=== PATIENT | female | born 1950 | race Caucasian/White ===

== ENCOUNTER 2018-01-16 14:05 | Emergency (ER) | payer MEDICARE, OTHER ==
[2018-01-16 14:22] VITALS: BP 143/63
--- NOTE | 2018-01-16 14:52 | EDM.PDOC ---
ED HPI GENERAL MEDICAL PROBLEM - General Chief Complaint: Lower Extremity Injury/Pain Stated Complaint: L HIP PAIN/NUMBNESS - FELL YESTERDAY Time Seen by Provider: 01/16/18 14:31 - History of Present Illness INITIAL COMMENTS - FREE TEXT/NARRATIVE: 67-year-old female presents to the emergency room with head injury and left hip pain. The patient was in pain clinic in [place] yesterday had a back injection which helped quite a bit however when she went to stand up out of the wheelchair to get out the door she had no strength in her legs and fell over landing hard on her hip and hitting her head somewhere on the door she continues to have a headache from this she is not on blood thinners. She's had no loss of consciousness no nausea and vomiting but the headache continues. The patient is ambulatory at home by a large uses her wheelchair because of the discomfort ambulating is very uncomfortable for her. Left Hip Pain Score (Numeric/FACES): 8 - Related Data Allergies Allergy/AdvReac Type Severity Reaction Status Date / Time simvastatin [From Zocor] Allergy Irritabilit Verified 01/16/18 14:18 y Home Meds: Home Meds Allopurinol [Zyloprim] 300 mg PO DAILY 09/25/15 [History] Furosemide [Furosemide] 40 mg PO DAILY 09/25/15 [History] Insulin Aspart [NovoLOG] 0 units SUBCUT TID 09/25/15 [History] Insulin Glarg,Human.Rec.Analog [LantUS Solostar] 0 units SUBCUT BID 09/25/15 [ History] Levothyroxine Sodium [Levothyroxine Sodium] 25 mcg PO DAILY 09/25/15 [History] Lisinopril [Lisinopril] 20 mg PO DAILY 09/25/15 [History] Rosuvastatin [Crestor] 40 mg PO DAILY 09/25/15 [History] metFORMIN [Glucophage] 850 mg PO BIDMEALS 09/25/15 [History] Past Medical History Other HEENT History: wear glasses Other Musculoskeletal History: herniated disc Social & Family History - Family History Family Medical History: Noncontributory - Tobacco Use Smoking Status *Q: Never Smoker Years of Tobacco use: 30 Packs/Tins Daily: 0.5 Second Hand Smoke Exposure: No - Caffeine Use Caffeine Use: Reports: None - Alcohol Use Days Per Week of Alcohol Use: 0 - Recreational Drug Use Recreational Drug Use: No Review of Systems - Review of Systems Review Of Systems: See Below Constitutional: Reports: No Symptoms Eyes: Reports: No Symptoms Ears: Reports: No Symptoms Nose: Reports: No Symptoms Mouth/Throat: Reports: No Symptoms Respiratory: Reports: No Symptoms Cardiovascular: Reports: No Symptoms GI/Abdominal: Reports: No Symptoms Genitourinary: Reports: No Symptoms Musculoskeletal: Reports: Other (Arcuate pain on the left) Skin: Reports: No Symptoms Neurological: Reports: Headache Psychiatric: Reports: No Symptoms ED EXAM, GENERAL - Physical Exam Exam: See Below Exam Limited By: No Limitations General Appearance: Alert, No Apparent Distress Eye Exam: Bilateral Eye: Normal Inspection Ears: Normal External Exam, Normal Canal, Hearing Grossly Normal, Normal TMs Throat/Mouth: Normal Inspection, Normal Lips, Normal Teeth, Normal Gums, Normal Oropharynx, Normal Voice, No Airway Compromise Head: Atraumatic, Normocephalic, Other (He has some significant discomfort at the top of her head and down the left side a cannot palpate well enough to exclude crepitation because of discomfort) Neck: Normal Inspection, Supple, Non-Tender. No: Lymphadenopathy (L), Lymphadenopathy (R) Respiratory/Chest: No Respiratory Distress, Lungs Clear, Normal Breath Sounds Cardiovascular: Regular Rate, Rhythm, No Edema, No Murmur GI/Abdominal: Normal Bowel Sounds, Soft, Non-Tender Back Exam: Normal Inspection. No: CVA Tenderness (L), CVA Tenderness (R) Extremities: Other (Discomfort along the posterior trochanter on the left side gentle range of motion is not tolerated) Neurological: Alert, Oriented, CN II-XII Intact, Normal Cognition Psychiatric: Normal Affect Skin Exam: Warm, Dry, Intact Course - Vital Signs Last Recorded V/S: Last Vital Signs Temp 36.2 C 01/16/18 14:18 Pulse 77 01/16/18 14:18 Resp 20 01/16/18 14:18 BP 143/63 H 01/16/18 14:18 Pulse Ox 94 L 01/16/18 14:18 - Re-Assessments/Exams Free Text/Narrative Re-Assessment/Exam: 01/16/18 17:55 Trade show what could be greater trochanter fracture on the left side. No other acute changes noted however she's got a large accumulation of stool noted in the rectum and in the visualized portion of the bowel patient does have a with constipation she'll take a bottle of mag citrate tonight and repeat it in the morning if needed for her pain control she'll be started on Tylenol 650 every 4- 6 hours as needed for pain. Case was reviewed with Dr. De Guzman today who will see the patient next week. The patient's son will stay with her for the next few days so she can ambulate easier. We attempted to ambulate her and she only a few steps with a walker here she gets around easily with her wheelchair at home. The patient's son is given work excuse until Monday. Departure - Departure Time of Disposition: 17:56 Disposition: Home, Self-Care 01 Clinical Impression: Fracture of greater trochanter of left femur, Constipation - Discharge Information Instructions: Constipation, Adult, Femoral Shaft Fracture Referrals: Bernadette Smith MD [Primary Care Provider] - Gordo De Guzman MD [Physician] - Forms: ED Department Discharge Additional Instructions: Return to the emergency room with any questions problems worsening symptoms. Follow up with Dr. De Guzman today next week. Tylenol 650 mg every 4-6 hours as needed for pain try and limit to no more than 3000 mg a day. Use your walker as tolerated otherwise use your wheelchair.
--- NOTE | 2018-01-16 15:24 | CT ---
Head CT Technique: Multiple axial sections through the brain were obtained. Intravenous contrast was not utilized. Comparison: Prior head CT exam of 07/11/14. Findings: Ventricles along with basal cisterns and sulci over the convexities appear within normal limits for the patient's age. No abnormal parenchymal densities are seen. No evidence of intracranial hemorrhage. No midline shift or mass effect is seen. Bone window settings were reviewed which shows incidental hyperostosis interna frontalis. Stable lucency is identified within the posterior left occipital bone which is felt to be normal variant of prominent arachnoid granulations. No acute calvarial abnormality is seen. Visualized sinuses are clear. Impression: 1. Incidental findings. Nothing acute is seen on noncontrast head CT study. Diagnostic code #2
--- NOTE | 2018-01-16 15:42 | CR ---
Pelvis and left hip: AP view of the pelvis was obtained as well as AP and lateral views of the left hip. Joint spaces within both hips are maintained. Sacroiliac joints are within normal limits. Bony structures are osteopenic. Fracture felt to be present at the base of the greater trochanter within the left hip. No additional fracture or other abnormality is seen. Impression: 1. Probable fracture at the base of the greater trochanter within the left hip. 2. Other incidental findings. Diagnostic code #3
--- NOTE | 2018-01-16 16:42 | CR ---
Left femur: AP and lateral views of the left femur were obtained. Mild joint space narrowing is seen within the medial joint. Osteophytes are noted off both medial and lateral tibial margins of the knee. Bony structures are somewhat osteopenic. Minimal vascular calcification is noted. No acute abnormality is seen on left femur study. Impression: 1. Degenerative change within the left knee. Osteopenia. 2. Nothing acute is seen. Diagnostic code #2
== END 2018-01-16 18:06 | disposition home or self-care (01) ==
LOC: JD.ED 14:05
DX: S72.112A Displaced fracture of greater trochanter of left femur, initial encounter for closed fracture (principal); K59.00 Constipation, unspecified; Z72.0 Tobacco use; Z79.899 Other long term (current) drug therapy; Z88.8 Allergy status to other drugs, medicaments and biological substances; W05.0XXA Fall from non-moving wheelchair, initial encounter
CPT/HCPCS: 70450; 70450-26; 73502-26-LT; 73502-LT; 73552-26-LT; 73552-LT; 99283; 99284-25

== ENCOUNTER 2018-01-22 13:37 | Emergency (ER) | payer MEDICARE, OTHER ==
[2018-01-22] MEDS ORDERED: Sodium Chloride 0.9% 10 ML Syringe FLUSH PRN ×2 (13:51→14:49)
[2018-01-22] MEDS ORDERED: Aspirin 81 MG Tab.Chew PO ONE (13:51)
[2018-01-22] MEDS: Nitroglycerin 0.4 MG Tab.SL SL PRN ×3 (13:55→14:05)
[2018-01-22 14:05] VITALS: BP 104/70
[2018-01-22] MEDS ORDERED: Sodium Chloride 0.9% 500 ML IV ONE (14:38)
--- NOTE | 2018-01-22 14:48 | CR ---
Chest: Portable view of the chest was obtained. Comparison: No prior chest x-ray is available. Heart size is normal. Mild tortuosity of the thoracic aorta is seen. Previous sternotomy is noted as well as AICD. Lungs are clear. Bony structures are grossly intact. Surgical clips are noted from prior cholecystectomy. Impression: 1. Incidental findings. Nothing acute is identified on portable chest x-ray. Diagnostic code #2
[2018-01-22] MEDS ORDERED: Iopamidol 755 Mg/ML 100 ML Bottle IVPUSH ONE (14:49)
[2018-01-22] MEDS ORDERED: Sodium Chloride 0.9% 100 ML IV SCH (15:00)
--- NOTE | 2018-01-22 15:18 | CT ---
CT chest Technique: Multiple axial sections through the chest were obtained. Intravenous contrast was utilized. Study has been performed as a pulmonary angiogram protocol. Comparison: Prior chest x-ray performed earlier on the same day (1:51 PM, no prior chest CT. Findings: Pulmonary arteries are well-opacified. No filling defects are identified to indicate pulmonary embolism. Artifact is noted from AICD. Sternotomy wires are seen. Mediastinum and hilar region show no adenopathy or mass. Mild coronary artery calcification is seen. Small portion of the visualized upper abdominal structures shows previous cholecystectomy. Lungs are clear. No acute pulmonary densities are seen. Bone window settings were reviewed which shows mild degenerative change scattered throughout the spine. Impression: 1. No findings of pulmonary embolism. 2. Other incidental findings as noted above. Nothing acute is appreciated on CT study of the chest. Diagnostic code #2
[2018-01-22] MEDS ORDERED: Ketorolac 30 MG/ML SDV IVPUSH ONE (16:30)
--- NOTE | 2018-01-22 17:20 | EDM.PDOC ---
ED HPI GENERAL MEDICAL PROBLEM - General Chief Complaint: Chest Pain Stated Complaint: CHEST PAIN Time Seen by Provider: 01/22/18 13:43 Source of Information: Reports: Patient History Limitations: Reports: No Limitations - History of Present Illness INITIAL COMMENTS - FREE TEXT/NARRATIVE: The patient presents with left sided chest pain that started a couple hours before presentation. She says it hurts to take a deep breath. She also is short of breath. She has no cough, fever, or chills. She has no abdominal pain , nausea or vomiting. She had a CABG years ago and a few months ago she had a pacemaker put in. She was just resting when this started. It hurts more when she takes a deep breath and it there is pain upon palpation to her chest. Onset: Sudden Duration: Hour(s): (2) Location: Reports: Chest Quality: Reports: Sharp Severity: Moderate Improves with: Reports: Immobilization Worsens with: Reports: Breathing, Movement Context: Reports: Activity (She was sitting around) Associated Symptoms: Reports: Chest Pain, Shortness of Breath Chest Pain Score (Numeric/FACES): 8 - Related Data Allergies Allergy/AdvReac Type Severity Reaction Status Date / Time simvastatin [From Zocor] Allergy Irritabilit Verified 01/22/18 13:41 y Home Meds: Home Meds Allopurinol [Zyloprim] 300 mg PO DAILY 09/25/15 [History] Furosemide [Furosemide] 80 mg PO DAILY 09/25/15 [History] Insulin Aspart [NovoLOG] 0 units SUBCUT TID 09/25/15 [History] Insulin Glarg,Human.Rec.Analog [LantUS Solostar] 0 units SUBCUT BID 09/25/15 [ History] Levothyroxine Sodium [Levothyroxine Sodium] 25 mcg PO SUTUTHSA 09/25/15 [History ] Lisinopril [Lisinopril] 20 mg PO DAILY 09/25/15 [History] Rosuvastatin [Crestor] 40 mg PO DAILY 09/25/15 [History] metFORMIN [Glucophage] 850 mg PO BIDMEALS 09/25/15 [History] Diclofenac Sodium [Voltaren] 1 dose TOP ASDIRECTED 01/22/18 [History] Levothyroxine 50 mg PO MOWEFR 01/22/18 [History] Metoprolol Succinate 200 mg PO DAILY 01/22/18 [History] Potassium Chloride [Klor-Con M20] 20 meq PO DAILY 01/22/18 [History] Past Medical History Other HEENT History: wear glasses Cardiovascular History: Reports: Heart Failure, High Cholesterol, Hypertension, Pacemaker Respiratory History: Reports: Asthma Other Musculoskeletal History: herniated disc Endocrine/Metabolic History: Reports: Diabetes, Type II - Past Surgical History Cardiovascular Surgical History: Reports: Coronary Artery Bypass Social & Family History - Family History Family Medical History: Noncontributory - Tobacco Use Smoking Status *Q: Former Smoker Years of Tobacco use: 30 Packs/Tins Daily: 0.5 Used Tobacco, but Quit: No Second Hand Smoke Exposure: No - Caffeine Use Caffeine Use: Reports: None - Alcohol Use Days Per Week of Alcohol Use: 0 - Recreational Drug Use Recreational Drug Use: No ED ROS GENERAL - Review of Systems Review Of Systems: See Below Constitutional: Reports: No Symptoms HEENT: Reports: No Symptoms Respiratory: Reports: Shortness of Breath Cardiovascular: Reports: Chest Pain Endocrine: Reports: No Symptoms GI/Abdominal: Reports: No Symptoms : Reports: No Symptoms ED EXAM, GENERAL - Physical Exam Exam: See Below Exam Limited By: No Limitations General Appearance: Alert, No Apparent Distress Ears: Normal External Exam Nose: Normal Inspection Head: Atraumatic, Normocephalic Neck: Normal Inspection Respiratory/Chest: No Respiratory Distress, Lungs Clear, Normal Breath Sounds Cardiovascular: Regular Rate, Rhythm, No Edema, No Murmur, Other (Pain upon palpation to the left chest) GI/Abdominal: Soft, Non-Tender, No Organomegaly Back Exam: Normal Inspection Extremities: Normal Inspection EKG INTERPRETATION EKG Date: 01/22/18 Time: 13:43 Rhythm: NSR Rate (Beats/Min): 77 [place]: Normal P-Wave: Present QRS: LBBB Course - Vital Signs Last Recorded V/S: Last Vital Signs Temp 97.0 F 01/22/18 13:42 Pulse 66 01/22/18 13:42 Resp 20 01/22/18 13:42 BP 104/70 01/22/18 14:05 Pulse Ox 97 01/22/18 13:42 - Orders/Labs/Meds Orders: Active Orders 24 hr Category Date Time Status Accu Check [Blood Glucose Check, Bedside] [RC] ONETIME Care 01/22/18 16:17 Inactive Cardiac Monitoring [RC] . DIRECTED Care 01/22/18 13:51 Active EKG Documentation Completion [RC] ASDIRECTED Care 01/22/18 13:39 Active Peripheral IV Care [RC] . DIRECTED Care 01/22/18 13:52 Active Peripheral IV Insertion Adult [OM.PC] Stat Oth 01/22/18 13:51 Ordered EKG 12 Lead [EK] Stat Ther 01/22/18 13:39 Ordered Labs: Laboratory Tests 01/22/18 01/22/18 01/22/18 Range/Units 13:45 13:45 13:45 WBC 16.03 H (3.98-10.04) K/mm3 RBC 5.60 H (3.98-5.22) M/mm3 Hgb 14.9 (11.2-15.7) gm/L Hct 45.0 H (34.1-44.9) % MCV 80.4 (79.4-94.8) fl MCH 26.6 (25.6-32.2) pg MCHC 33.1 (32.2-35.5) g/dl RDW Std Deviation 47.5 H (36.4-46.3) fL Plt Count 359 (182-369) K/mm3 MPV 9.6 (9.4-12.3) fl Neut % (Auto) 75.5 H (34.0-71.1) % Lymph % (Auto) 14.7 L (19.3-51.7) % [place] % (Auto) 9.2 (4.7-12.5) % Eos % (Auto) 0.2 L (0.7-5.8) Baso % (Auto) 0.1 (0.1-1.2) % Neut # (Auto) 12.10 H (1.56-6.13) K/mm3 Lymph # (Auto) 2.36 (1.18-3.74) K/mm3 [place] # (Auto) 1.47 H (0.24-0.36) K/mm3 Eos # (Auto) 0.04 (0.04-0.36) K/mm3 Baso # (Auto) 0.01 (0.01-0.08) K/mm3 D-Dimer, Quantitative 2.13 H (0.19-0.59) mg/L Sodium 134 L (136-145) mEq/L Potassium 4.3 (3.5-5.1) mEq/L Chloride 100 (98-107) mEq/L Carbon Dioxide 21 (21-32) mEq/L Anion Gap 17.3 H (5-15) BUN 36 H (7-18) mg/dL Creatinine 1.4 H (0.55-1.02) mg/dL Est Cr Clr Drug Dosing 27.24 mL/min Estimated GFR (MDRD) 37 (>60) mL/min BUN/Creatinine Ratio 25.7 H (14-18) Glucose 325 H (80-115) mg/dL Calcium 9.4 (8.5-10.1) mg/dL Total Bilirubin 0.5 (0.2-1.0) mg/dL AST 11 L (15-37) U/L ALT 29 (14-59) U/L Alkaline Phosphatase 119 H (46-116) U/L Troponin I < 0.017 (0.00-0.056) ng/mL Total Protein 7.6 (6.4-8.2) g/dl Albumin 3.4 (3.4-5.0) g/dl Globulin 4.2 gm/dL Albumin/Globulin Ratio 0.8 L (1-2) 01/22/18 Range/Units 16:40 WBC (3.98-10.04) K/mm3 RBC (3.98-5.22) M/mm3 Hgb (11.2-15.7) gm/L Hct (34.1-44.9) % MCV (79.4-94.8) fl MCH (25.6-32.2) pg MCHC (32.2-35.5) g/dl RDW Std Deviation (36.4-46.3) fL Plt Count (182-369) K/mm3 MPV (9.4-12.3) fl Neut % (Auto) (34.0-71.1) % Lymph % (Auto) (19.3-51.7) % [place] % (Auto) (4.7-12.5) % Eos % (Auto) (0.7-5.8) Baso % (Auto) (0.1-1.2) % Neut # (Auto) (1.56-6.13) K/mm3 Lymph # (Auto) (1.18-3.74) K/mm3 [place] # (Auto) (0.24-0.36) K/mm3 Eos # (Auto) (0.04-0.36) K/mm3 Baso # (Auto) (0.01-0.08) K/mm3 D-Dimer, Quantitative (0.19-0.59) mg/L Sodium (136-145) mEq/L Potassium (3.5-5.1) mEq/L Chloride (98-107) mEq/L Carbon Dioxide (21-32) mEq/L Anion Gap (5-15) BUN (7-18) mg/dL Creatinine (0.55-1.02) mg/dL Est Cr Clr Drug Dosing mL/min Estimated GFR (MDRD) (>60) mL/min BUN/Creatinine Ratio (14-18) Glucose (80-115) mg/dL Calcium (8.5-10.1) mg/dL Total Bilirubin (0.2-1.0) mg/dL AST (15-37) U/L ALT (14-59) U/L Alkaline Phosphatase (46-116) U/L Troponin I 0.023 (0.00-0.056) ng/mL Total Protein (6.4-8.2) g/dl Albumin (3.4-5.0) g/dl Globulin gm/dL Albumin/Globulin Ratio (1-2) Meds: Medications Discontinued Medications Generic Name Dose Route Start Last Admin Trade Name Freq PRN Reason Stop Dose Admin Aspirin 324 mg 01/22/18 13:51 01/22/18 13:55 Aspirin PO 01/22/18 13:52 324 mg ONETIME ONE Administration Sodium Chloride 500 mls @ 1,000 mls/hr 01/22/18 14:38 01/22/18 15:11 Normal Saline IV 01/22/18 15:07 1,000 mls/hr .BOLUS ONE Administration Sodium Chloride 100 mls @ 75 mls/hr 01/22/18 15:00 01/22/18 15:02 Normal Saline IV 75 mls/hr ASDIRECTED MAEGAN Administration Iopamidol 100 ml 01/22/18 14:49 01/22/18 15:02 Isovue-370 (76%) IVPUSH 01/22/18 14:50 100 ml ONETIME ONE Administration Ketorolac Tromethamine 30 mg 01/22/18 16:30 01/22/18 16:38 Toradol IVPUSH 01/22/18 16:31 30 mg ONETIME ONE Administration Nitroglycerin 0.4 mg 01/22/18 13:51 01/22/18 14:05 Nitrostat SL 01/23/18 13:51 0.4 mg Q5M PRN Administration Chest Pain Sodium Chloride 10 ml 01/22/18 13:51 01/22/18 13:56 Saline Flush FLUSH 10 ml ASDIRECTED PRN Administration Keep Vein Open Sodium Chloride 10 ml 01/22/18 14:49 01/22/18 15:03 Saline Flush FLUSH 10 ml ONETIME PRN Administration IV FLUSH - Re-Assessments/Exams Free Text/Narrative Re-Assessment/Exam: 01/22/18 19:19 I ordered an IV saline lock, CXR, EKG, labs, aspirin and nitro. His EKG shows a LBBB that was old for her. There is no acute changes. Her CXR shows nothing acute. Her WBC was elevated 16.03. D-dimer was elevated at 2.13. I ordered a CT angio of her chest. Her Na was a little low at 134. Her creatinine was elevated at 1.4. Her glucose was elevated at 325. Her troponin is negative. Her CT shows no findings of pulmonary embolism. Other incidental findings as noted above. Nothing acute is appreciated on CT study of the chest. She is feeling better. I ordered a repeat troponin and it was negative. The pain in her chest is reproducable. This appears to be chest wall pain. I offered to admit her because of her history but she declined. I will have her stop her metformin for a couple days and have her follow up with Dr Smith. Departure - Departure Time of Disposition: 17:20 Disposition: Home, Self-Care 01 Condition: Good Clinical Impression: Atypical chest pain Instructions: Nonspecific Chest Pain, [id number] Referrals: Bernadette Smith MD [Primary Care Provider] - 2 Days Forms: ED Department Discharge Additional Instructions: Take your medication as prescribed. Take motrin or aleve for pain. Please return if you are worse. Follow up with Dr Smith within 3 days. - My Orders Last 24 Hours: My Active Orders 01/22/18 13:39 EKG Documentation Completion [RC] ASDIRECTED EKG 12 Lead [EK] Stat 01/22/18 13:51 Cardiac Monitoring [RC] . DIRECTED Peripheral IV Insertion Adult [OM.PC] Stat 01/22/18 13:52 Peripheral IV Care [RC] . DIRECTED 01/22/18 16:17 Accu Check [Blood Glucose Check, Bedside] [RC] ONETIME - Assessment/Plan Last 24 Hours: My Active Orders 01/22/18 13:39 EKG Documentation Completion [RC] ASDIRECTED EKG 12 Lead [EK] Stat 01/22/18 13:51 Cardiac Monitoring [RC] . DIRECTED Peripheral IV Insertion Adult [OM.PC] Stat 01/22/18 13:52 Peripheral IV Care [RC] . DIRECTED 01/22/18 16:17 Accu Check [Blood Glucose Check, Bedside] [RC] ONETIME
== END 2018-01-22 17:25 | disposition home or self-care (01) ==
LOC: JD.ED 13:37
DX: R07.89 Other chest pain (principal); I11.0 Hypertensive heart disease with heart failure; I50.9 Heart failure, unspecified; E78.00 Pure hypercholesterolemia, unspecified; E11.9 Type 2 diabetes mellitus without complications; Z95.0 Presence of cardiac pacemaker; Z95.1 Presence of aortocoronary bypass graft; Z87.891 Personal history of nicotine dependence; Z79.4 Long term (current) use of insulin; Z79.899 Other long term (current) drug therapy; Z88.8 Allergy status to other drugs, medicaments and biological substances
CPT/HCPCS: 36415; 71045; 71275; 80053; 84484; 85025; 85379; 93005; 96374; 99285; A9270; J1885; J7030; J7040; J7050; Q9967; 93010; 99284-25

== ENCOUNTER 2018-04-30 07:08 | Inpatient (IN) | payer MEDICARE, OTHER ==
[~2018-04-30 07:08] MED LIST: Bisacodyl 5 MG Tab PO PRN; Cyclobenzaprine 10 MG Tab PO PRN; Ketorolac 15 MG/ML SDV IVPUSH PRN; Lactated Ringers 1,000 ML IV SCH; Lidocaine 1%/Sod Bicarbonate in NS 8.4% 1 ML Syringe IDERM PRN; Magnesium Hydroxide 400 MG/5 ML Susp 30 ML Cup PO PRN; Morphine 2 MG/ML Syringe IVPUSH PRN; Naloxone 0.4 MG/ML SDV IVPUSH PRN; Sennosides 8.6 MG Tab PO PRN; Sodium Chloride 0.9% 10 ML Syringe FLUSH PRN
[2018-04-30] MEDS ORDERED: Acetaminophen 325 MG Tab PO ONE (07:15)
[2018-04-30] MEDS ORDERED: oxyCODONE ER 10 MG TAB.ER PO ONE (07:15)
[2018-04-30] MEDS ORDERED: Pregabalin 25 MG Cap PO ONE (07:15)
[2018-04-30] MEDS: ceFAZolin 1 GM Vial ONE ×2 (07:46→10:32)
[2018-04-30] MEDS: Bupivacaine 0.25% 30 ML SDV ONE ×2 (07:47→10:37)
[2018-04-30] MEDS: Vancomycin 1 GM SDV ONE ×2 (07:47→10:40)
[2018-04-30] MEDS: Iodine/Sodium Iodide 2% Tincture 30 ML Bottle ONE ×2 (07:48→10:29)
--- NOTE | 2018-04-30 08:02 | PCM.PREANE ---
Preanesthetic Assessment - Procedure Proposed Procedure: Left Total Knee Arthoplasty - Anesthesia/Transfusion/Family Hx Anesthesia History: Prior Anesthesia Without Reaction Family History of Anesthesia Reaction: No Transfusion History: No Prior Transfusion(s) - Review of Systems General: No Symptoms Pulmonary: No Symptoms Cardiovascular: Dyspnea on Exertion (short of breath at 1/2 block ) Gastrointestinal: No Symptoms Neurological: No Symptoms Other: Reports: Diabetes, Depression - Physical Assessment NPO Status Date: 04/29/18 NPO Status Time: 18:30 Pulse: 87 O2 Sat by Pulse Oximetry: 91 Respiratory Rate: 16 Blood Pressure: 115/72 Temperature: 37 C Height: 1.52 m ASA Class: 2 Mental Status: Alert & Oriented x3 Airway Class: Mallampati = 3 Dentition: Reports: Normal Dentition Thyro-Mental Finger Breadths: 3 Mouth Opening Finger Breadths: 5 ROM/Head Extension: Full Lungs: Clear to Auscultation, Normal Respiratory Effort Cardiovascular: Regular Rate, Regular Rhythm - Lab Values: Laboratory Last Values POC Glucose 171 mg/dL (80-115) H 04/30/18 07:51 MRSA (PCR) Negative 04/11/18 10:06 - Allergies Allergies/Adverse Reactions: Allergies Allergy/AdvReac Type Severity Reaction Status Date / Time simvastatin [From Zocor] AdvReac Muscle Verified 04/26/18 14:57 Aches - Blood Blood Available: No - Anesthesia Plan Beta Yomi: Metoprolol Med Last Dose Date: 04/30/18 Med Last Dose Time: 06:30 - Acknowledgements Anesthesia Type Planned: Spinal Pt an Appropriate Candidate for the Planned Anesthesia: Yes Alternatives and Risks of Anesthesia Discussed w Pt/Guardian: Yes Pt/Guardian Understands and Agrees with Anesthesia Plan: Yes PreAnesthesia Questionnaire HEENT History: Reports: None Other HEENT History: wear glasses Cardiovascular History: Reports: CAD, Heart Failure, High Cholesterol, Hypertension, Other (See Below) Other Cardiovascular History: Splenic artery aneurysm Respiratory History: Reports: Asthma Gastrointestinal History: Reports: Colon Polyp Genitourinary History: Reports: Renal Calculus, Other (See Below) Other Genitourinary History: Hypertonicity of bladder FORENSIC NURSE History: Reports: Musculoskeletal History: Reports: Back Pain, Chronic, Gout, Other (See Below) Other Musculoskeletal History: Spinal stenosis of lumbar region, left knee pain Neurological History: Reports: Other (See Below) Other Neuro History: Cerebrovascular disease Psychiatric History: Reports: None Endocrine/Metabolic History: Reports: Diabetes, Type II, Hypothyroidism, Obesity /BMI 30+, Osteopenia Hematologic History: Reports: None Immunologic History: Reports: None Oncologic (Cancer) History: Reports: None Dermatologic History: Reports: None - Past Surgical History Head Surgeries/Procedures: Reports: None Other HEENT Surgeries/Procedures: Arthroplasty for TMJ Cardiovascular Surgical History: Reports: Coronary Artery Bypass, Other (See Below) Other Cardiovascular Surgeries/Procedures: Cardiac cath Respiratory Surgical History: Reports: None GI Surgical History: Reports: Cholecystectomy, Colonoscopy, EGD, Polypectomy Female Surgical History: Reports: Hysterectomy, Lithotripsy/ESWL Endocrine Surgical History: Reports: None Musculoskeletal Surgical History: Reports: Other (See Below) Other Musculoskeletal Surgeries/Procedures:: Osteoplasty radius ulna shortening Oncologic Surgical History: Reports: None Dermatological Surgical History: Reports: None - SUBSTANCE USE Smoking Status *Q: Former Smoker Tobacco Use Within Last Twelve Months: No Second Hand Smoke Exposure: No Days Per Week of Alcohol Use: 0 Recreational Drug Use History: No - HOME MEDS Home Medications: Home Meds Allopurinol [Zyloprim] 300 mg PO DAILY 09/25/15 [History] Furosemide 80 mg PO DAILY 09/25/15 [History] Insulin Aspart [NovoLOG] 0 units SUBCUT TID 09/25/15 [History] Insulin Glarg,Human.Rec.Analog [LantUS Solostar] 0 units SUBCUT BID 09/25/15 [ History] Levothyroxine Sodium 25 mcg PO SUTUTHSA 09/25/15 [History] Lisinopril 20 mg PO DAILY 09/25/15 [History] Rosuvastatin [Crestor] 40 mg PO BEDTIME 09/25/15 [History] Levothyroxine 50 mg PO MOWEFR 01/22/18 [History] Metoprolol Succinate 200 mg PO DAILY 01/22/18 [History] Potassium Chloride [Klor-Con M20] 20 meq PO DAILY 01/22/18 [History] Albuterol Sulfate [Proair Respiclick] 2 puff IH Q4H PRN 04/26/18 [History] Aspirin [Halfprin] 81 mg PO DAILY 04/26/18 [History] Cholecalciferol (Vitamin D3) [Vitamin D3] 5,000 unit PO DAILY 04/26/18 [History] Diclofenac Sodium [Voltaren] 1 applic TP BID 04/26/18 [History] Exenatide Microspheres [Bydureon] 2 mg SQ MO 04/26/18 [History] Famotidine [Pepcid] 10 mg PO DAILY 04/26/18 [History] [place]-3/DHA/Epa/Fish Oil [[place]-3 Fish Oil 1,000 MG Sfgl] 1,000 mg PO DAILY [History] Ubidecarenone [Co Q-10] 100 mg PO DAILY 04/26/18 [History] - CURRENT (IN HOUSE) MEDS Current Meds: Current Medications Bisacodyl (Dulcolax) 5 mg PO DAILY PRN PRN Reason: Constipation Morphine Sulfate 8 mg/Epinephrine HCl 0.3 mg/Cefuroxime Sodium 750 mg/Ketorolac Tromethamine 30 mg/Sodium Chloride 27.9 ml 0 mg .XX ONETIME ONE Stop: 04/30/18 10:01 Cyclobenzaprine HCl (Flexeril) 10 mg PO TID PRN PRN Reason: Spasms Docusate Sodium (Colace) 100 mg PO BID MAEGAN Famotidine (Pepcid) 20 mg PO Q12H MAEGAN Lactated Ringer's (Ringers, Lactated) 1,000 mls @ 125 mls/hr IV ASDIRECTED [facility] Stop: 04/30/18 18:00 Cefazolin Sodium/Dextrose 2 gm (/ Premix) 50 mls @ 100 mls/hr IV Q8H [facility] Stop: 04/30/18 23:29 Ketorolac Tromethamine (Toradol) 15 mg IVPUSH Q6H PRN PRN Reason: Pain Lidocaine/Sodium Bicarbonate (Buffered Lidocaine 1% In Ns 8.4%) 0.25 ml IDERM ONETIME PRN PRN Reason: Prior to IV Start Stop: 04/30/18 18:00 Magnesium Hydroxide (Milk Of Magnesia) 30 ml PO BID PRN PRN Reason: Constipation Morphine Sulfate (Morphine) 2 mg IVPUSH Q2H PRN PRN Reason: Breakthrough Pain Naloxone HCl (Narcan) 0.1 mg IVPUSH Q5M PRN PRN Reason: Oversedation Ondansetron HCl (Zofran) 4 mg IVPUSH Q6H PRN PRN Reason: Nausea/Vomiting Oxycodone/Acetaminophen (Percocet 325-5 Mg) 1 - 2 tab PO Q4H PRN PRN Reason: Pain Rivaroxaban (Xarelto) 10 mg PO DAILY MAEGAN Senna (Senna) 8.6 mg PO BID PRN PRN Reason: Constipation Sodium Chloride (Saline Flush) 10 ml FLUSH ASDIRECTED PRN PRN Reason: Keep Vein Open Stop: 04/30/18 18:00 Discontinued Medications Acetaminophen (Tylenol) 975 mg PO ONETIME ONE Stop: 04/30/18 07:16 Bupivacaine HCl (Marcaine 0.25%) Confirm Administered Dose 30 ml .ROUTE .STK- MED ONE Stop: 04/30/18 07:40 Last Admin: 04/30/18 07:47 Dose: 30 ml Cefazolin Sodium (Ancef) Confirm Administered Dose 2 gm .ROUTE .STK-MED ONE Stop: 04/30/18 07:39 Last Admin: 04/30/18 07:46 Dose: 2 gm Iodine (Iodine 2% Mild Tincture) Confirm Administered Dose 30 ml .ROUTE .STK- MED ONE Stop: 04/30/18 07:40 Last Admin: 04/30/18 07:48 Dose: 30 ml Oxycodone HCl (Oxycontin) 10 mg PO ONETIME ONE Stop: 04/30/18 07:16 Pregabalin (Lyrica) 50 mg PO ONETIME ONE Stop: 04/30/18 07:16 Tranexamic Acid (Cyklokapron) Confirm Administered Dose 1,000 mg .ROUTE .STK- MED ONE Stop: 04/30/18 07:39 Last Admin: 04/30/18 07:48 Dose: 1,000 mg Vancomycin HCl (Vancomycin) Confirm Administered Dose 1 gm .ROUTE .STK-MED ONE Stop: 04/30/18 07:39 Last Admin: 04/30/18 07:47 Dose: 1 gm
[2018-04-30] MEDS ORDERED: Propofol 200 MG/20 ML SDV ONE ×2 (08:24→10:44)
[2018-04-30] MEDS ORDERED: Lidocaine 1% 4 ML ONE (08:26)
[2018-04-30] MEDS ORDERED: ceFAZolin 1 GM Vial ONE (08:31)
[2018-04-30] MEDS: Morphine 8 MG, EPINEPHrine 0.3 MG, Cefuroxime 750 MG, Ketorolac 30 MG, Sodium Chloride ... ONE ×15 (08:36→15:29)
[2018-04-30] MEDS ORDERED: Lidocaine 1% 2 ML ONE (08:55)
[2018-04-30] MEDS ORDERED: Bupivacaine 0.75% 30 ML SDV ONE (08:55)
[2018-04-30] MEDS ORDERED: Non-Formulary Medication 1 Each (Albuterol Sulfate [Proair Respiclick] 2 PUFF) IH PRN (11:14)
[2018-04-30] MEDS ORDERED: EXENATIDE MICROSPHERES 2 MG SQ SCH (11:15)
[2018-04-30] MEDS ORDERED: diphenhydrAMINE 50 MG/ML SDV IVPUSH PRN (11:27)
[2018-04-30] MEDS ORDERED: Ondansetron 4 MG/2 ML SDV IVPUSH PRN (11:27)
[2018-04-30] MEDS ORDERED: fentaNYL 100 MCG/2 ML SDV IVPUSH PRN (11:27)
--- NOTE | 2018-04-30 11:27 | PCM.POSTAN ---
POST ANESTHESIA ASSESSMENT - MENTAL STATUS Mental Status: Alert - VITAL SIGNS Pulse Rate: 88 SaO2: 94 Resp Rate: 20 Blood Pressure: 106/78 Temperature: 36.5 C - RESPIRATORY Respiratory Status: Respiratory Rate WNL, Airway Patent, O2 Saturation Stable - CARDIOVASCULAR CV Status: Pulse Rate WNL, Blood Pressure Stable - GASTROINTESTINAL GI Status: No Symptoms - PAIN Pain Score: 0 - POST OP HYDRATION Hydration Status: Adequate & Stable
[2018-04-30] MEDS ORDERED: Ropivacaine 0.5% 5 MG/ML 30 ML SDV ONE (12:27)
[2018-04-30] MEDS ORDERED: EPINEPHrine 1 MG/ML SDV ONE (12:27)
--- NOTE | 2018-04-30 14:24 | PCM.OPNOTE ---
- General Post-Op/Procedure Note Date of Surgery/Procedure: 04/30/18 Operative Procedure(s): left total knee arthroplasty Pre Op Diagnosis: left knee osteoarthrosis Post-Op Diagnosis: Same Anesthesia Technique: Local, MAC, Spinal Primary Surgeon: Gordo De Guzman Anesthesia Provider: Reny Garcia Manufacturing Engineer Machining: Delma Medel Manufacturing Engineer Machining: Sharonda Robert in mLs: 30 Complications: None Condition: Good Free Text/Narrative:: size 3 and 3 29x9
[2018-04-30] MEDS: Ondansetron 4 MG/2 ML SDV IVPUSH PRN (14:42)
[2018-04-30] MEDS: Insulin Aspart 100 Units/ML 3 ML Pen SUBCUT SCH (14:42)
[2018-04-30] MEDS ORDERED: Scopolamine 1.5 MG Transdermal Patch TRDERM PRN (14:52)
[2018-04-30] MEDS: Acetaminophen/oxyCODONE 325-5 MG Tab PO PRN (15:06)
--- NOTE | 2018-04-30 15:23 | PCM.CONS ---
H&P History of Present Illness - General Date of Service: 04/30/18 Admit Problem/Dx: Admission Diagnosis/Problem Admission Diagnosis/Problem Osteoarthritis of knee Source of Information: Patient, Provider, RN, RN Notes Reviewed History Limitations: Reports: No Limitations - History of Present Illness Initial Comments - Free Text/Narative: Mellisa Marc is a 67 yo female patient of Dr. De Guzman who is post-operative day 0 of left TKA. Hospital medicine was consulted for post-operative medical care. At this time she is resting in bed. Pain is controlled. She denies any chest pain, shortness of breath, palpitations, nausea, or vomiting. She carries a history of: ICD, HTN, HLD, CAD with CABG in 2012, hypertonicity of bladder, chronic back pain, CHF, Osteopenia, asthma, renal stones, splenic aneurism, spinal stenosis. She is former smoker. She is a full code. Her primary care provider is Dr. Smith at [place]. Left Knee Pain Score (Numeric/FACES): 6 - Related Data Allergies/Adverse Reactions: Allergies Allergy/AdvReac Type Severity Reaction Status Date / Time simvastatin [From Zocor] AdvReac Muscle Verified 04/26/18 14:57 Aches Home Medications: Home Meds Allopurinol [Zyloprim] 300 mg PO DAILY 09/25/15 [History] Furosemide 80 mg PO DAILY 09/25/15 [History] Insulin Aspart [NovoLOG] 0 units SUBCUT TID 09/25/15 [History] Insulin Glarg,Human.Rec.Analog [LantUS Solostar] 0 units SUBCUT BID 09/25/15 [ History] Levothyroxine Sodium 25 mcg PO SUTUTHSA 09/25/15 [History] Lisinopril 20 mg PO DAILY 09/25/15 [History] Rosuvastatin [Crestor] 40 mg PO BEDTIME 09/25/15 [History] Levothyroxine 50 mcg PO MOWEFR 01/22/18 [History] Metoprolol Succinate 200 mg PO DAILY 01/22/18 [History] Potassium Chloride [Klor-Con M20] 20 meq PO DAILY 01/22/18 [History] Albuterol Sulfate [Proair Respiclick] 2 puff IH Q4H PRN 04/26/18 [History] Aspirin [Halfprin] 81 mg PO DAILY 04/26/18 [History] Cholecalciferol (Vitamin D3) [Vitamin D3] 5,000 unit PO DAILY 04/26/18 [History] Diclofenac Sodium [Voltaren] 1 applic TP BID 04/26/18 [History] Exenatide Microspheres [Bydureon] 2 mg SQ MO 04/26/18 [History] Famotidine [Pepcid] 10 mg PO DAILY 04/26/18 [History] [place]-3/DHA/Epa/Fish Oil [[place]-3 Fish Oil 1,000 MG Sfgl] 1,000 mg PO DAILY [History] Ubidecarenone [Co Q-10] 100 mg PO DAILY 04/26/18 [History] metFORMIN HCl [Glucophage] 850 mg PO BIDMEALS 04/30/18 [History] Past Medical History HEENT History: Reports: None Other HEENT History: wear glasses Cardiovascular History: Reports: CAD, Heart Failure, High Cholesterol, Hypertension, Other (See Below) Other Cardiovascular History: Splenic artery aneurysm Respiratory History: Reports: Asthma Gastrointestinal History: Reports: Colon Polyp Genitourinary History: Reports: Renal Calculus, Other (See Below) Other Genitourinary History: Hypertonicity of bladder PM TECHNICIAN History: Reports: Musculoskeletal History: Reports: Back Pain, Chronic, Gout, Other (See Below) Other Musculoskeletal History: Spinal stenosis of lumbar region, left knee pain Neurological History: Reports: Other (See Below) Other Neuro History: Cerebrovascular disease Psychiatric History: Reports: None Endocrine/Metabolic History: Reports: Diabetes, Type II, Hypothyroidism, Obesity /BMI 30+, Osteopenia Hematologic History: Reports: None Immunologic History: Reports: None Oncologic (Cancer) History: Reports: None Dermatologic History: Reports: None - Past Surgical History Head Surgeries/Procedures: Reports: None Other HEENT Surgeries/Procedures: Arthroplasty for TMJ Cardiovascular Surgical History: Reports: Coronary Artery Bypass, Other (See Below) Other Cardiovascular Surgeries/Procedures: Cardiac cath Respiratory Surgical History: Reports: None GI Surgical History: Reports: Cholecystectomy, Colonoscopy, EGD, Polypectomy Female Surgical History: Reports: Hysterectomy, Lithotripsy/ESWL Endocrine Surgical History: Reports: None Musculoskeletal Surgical History: Reports: Other (See Below) Other Musculoskeletal Surgeries/Procedures:: Osteoplasty radius ulna shortening Oncologic Surgical History: Reports: None Dermatological Surgical History: Reports: None Social & Family History - Family History Family Medical History: Noncontributory - Tobacco Use Smoking Status *Q: Former Smoker Years of Tobacco use: 30 Packs/Tins Daily: 0.5 Used Tobacco, but Quit: Yes Month/Year Tobacco Last Used: 1989 Second Hand Smoke Exposure: No - Caffeine Use Caffeine Use: Reports: Coffee - Alcohol Use Days Per Week of Alcohol Use: 0 - Recreational Drug Use Recreational Drug Use: No Drug Use in Last 12 Months: No H&P Review of Systems - Review of Systems: Review Of Systems: See Below General: Reports: No Symptoms. Denies: Fever, Chills, Malaise, Weakness HEENT: Reports: No Symptoms Pulmonary: Reports: No Symptoms. Denies: Shortness of Breath, Wheezing, Cough, Sputum Cardiovascular: Reports: No Symptoms. Denies: Chest Pain, Palpitations, Dyspnea on Exertion, Edema Gastrointestinal: Reports: No Symptoms. Denies: Abdominal Pain, Constipation, Diarrhea, Nausea, Vomiting Genitourinary: Reports: No Symptoms Musculoskeletal: Reports: Joint Pain Skin: Reports: No Symptoms Psychiatric: Reports: No Symptoms Neurological: Reports: No Symptoms Hematologic/Lymphatic: Reports: No Symptoms Immunologic: Reports: No Symptoms Exam - Exam Exam: See Below - Vital Signs Vital Signs: Last Vital Signs Temp 97.1 F 04/30/18 14:10 Pulse 90 04/30/18 14:10 Resp 16 04/30/18 15:10 BP 93/45 L 04/30/18 15:10 Pulse Ox 95 04/30/18 15:10 Weight: 198 lb - Exam Quality Assessment: Supplemental Oxygen, DVT Prophylaxis General: Alert, Oriented, Cooperative. No: Mild Distress HEENT: Conjunctiva Clear, EACs Clear, EOMI, Hearing Intact, Mucosa Moist & [place] , Nares Patent, Posterior Pharynx Clear, PERRLA Neck: Supple, Trachea Midline Lungs: Clear to Auscultation, Normal Respiratory Effort Cardiovascular: Regular Rate, Regular Rhythm GI/Abdominal Exam: Normal Bowel Sounds, Soft, Non-Tender, No Distention (Female) Exam: Deferred Rectal (Female) Exam: Deferred Back Exam: Normal Inspection, Full Range of Motion Extremities: No Pedal Edema, Normal Capillary Refill, Leg Pain, Limited Range of Motion, Other (Gold bandage on left leg. Bandage is dry and intact. Cooling pack in place ) Peripheral Pulses: 2+: Radial (L), Radial (R), Posterior Tibial (L), Posterior Tibial (R), Dorsalis Pedis (L), Dorsalis Pedis (R) Skin: Warm, Dry, Intact Neurological: Cranial Nerves Intact (grossly ) Neuro Extensive - Mental Status: Alert, Oriented x3, Normal Mood/Affect, Normal Cognition, Memory Intact Psychiatric: Alert, Normal Affect, Normal Mood - Patient Data Lab Results Last 24 hrs: Laboratory Results - last 24 hr 04/30/18 04/30/18 Range/Units 07:51 14:31 POC Glucose 171 H 239 H (80-115) mg/dL Consult PN Assessment/Plan POD#: 0 Procedures: Procedures ASSAY OF AMYLASE (09/25/15) ASSAY OF LIPASE (09/25/15) ASSAY OF MAGNESIUM (09/25/15) ASSAY OF NATRIURETIC PEPTIDE (09/25/15) ASSAY OF PHOSPHORUS (09/25/15) ASSAY OF TROPONIN QUANT (01/22/18) COMPLETE CBC W/AUTO DIFF WBC (01/22/18) COMPREHEN METABOLIC PANEL (01/22/18) CT ABD & PELVIS W/O CONTRAST (09/25/15) CT ANGIOGRAPHY CHEST (01/22/18) CT HEAD/BRAIN W/O DYE (01/16/18) CT NECK SPINE W/O DYE (07/11/14) DXA BONE DENSITY AXIAL (05/04/17) ELECTROCARDIOGRAM TRACING (01/22/18) EMERGENCY DEPT VISIT (01/22/18) EMERGENCY DEPT VISIT (01/16/18) EMERGENCY DEPT VISIT (09/25/15) EMERGENCY DEPT VISIT (07/11/14) FIBRIN DEGRADATION QUANT (01/22/18) GLUCOSE BLOOD TEST (09/25/15) HYDRATE IV INFUSION ADD-ON (09/25/15) ROUTINE VENIPUNCTURE (01/22/18) THER/PROPH/DIAG INJ IV PUSH (01/22/18) TX/PRO/DX INJ NEW DRUG ADDON (09/25/15) TX/PRO/DX INJ SAME DRUG ORTHO TECH (09/25/15) URINALYSIS AUTO W/SCOPE (09/25/15) X-RAY EXAM CHEST 1 VIEW (01/22/18) X-RAY EXAM HIP UNI 2-3 VIEWS (01/16/18) X-RAY EXAM OF FEMUR 2/> (01/16/18) (1) S/P total knee arthroplasty SNOMED Code(s): 4402100951594, 177519112, 8886259219995 Code(s): Z96.659 - PRESENCE OF UNSPECIFIED ARTIFICIAL KNEE JOINT Priority: High Current Visit: Yes Qualifiers: Laterality: left Qualified Code(s): Z96.652 - Presence of left artificial knee joint (2) Osteoarthritis SNOMED Code(s): 569553681 Code(s): M19.90 - UNSPECIFIED OSTEOARTHRITIS, UNSPECIFIED SITE Priority: High Current Visit: Yes Qualifiers: Osteoarthritis location: knee Osteoarthritis type: primary Laterality: left Qualified Code(s): M17.12 - Unilateral primary osteoarthritis, left knee (3) CHF (congestive heart failure) SNOMED Code(s): 03604257 Code(s): I50.9 - HEART FAILURE, UNSPECIFIED Priority: Medium Current Visit: No Qualifiers: Heart failure type: unspecified Heart failure chronicity: chronic Qualified Code(s): I50.9 - Heart failure, unspecified (4) HLD (hyperlipidemia) SNOMED Code(s): 97859880 Code(s): E78.5 - HYPERLIPIDEMIA, UNSPECIFIED Priority: Medium Current Visit: No Qualifiers: Hyperlipidemia type: unspecified Qualified Code(s): E78.5 - Hyperlipidemia , unspecified (5) Splenic artery aneurysm SNOMED Code(s): 48758577 Code(s): I72.8 - ANEURYSM OF OTHER SPECIFIED ARTERIES Priority: Low Current Visit: No (6) Asthma SNOMED Code(s): 366060774 Code(s): J45.909 - UNSPECIFIED ASTHMA, UNCOMPLICATED Priority: Medium Current Visit: No Qualifiers: Asthma severity: unspecified severity Asthma persistence: unspecified Asthma complication type: unspecified Qualified Code(s): J45.909 - Unspecified asthma, uncomplicated (7) Hypertonicity of bladder SNOMED Code(s): 055754633 Code(s): N31.8 - OTHER NEUROMUSCULAR DYSFUNCTION OF BLADDER Priority: Low Current Visit: No (8) Chronic back pain SNOMED Code(s): 766599936 Code(s): M54.9 - DORSALGIA, UNSPECIFIED; G89.29 - OTHER CHRONIC PAIN Priority: Medium Current Visit: No Qualifiers: Back pain location: back pain in unspecified location Back pain laterality : unspecified Qualified Code(s): M54.9 - Dorsalgia, unspecified; G89.29 - Other chronic pain (9) Gout SNOMED Code(s): 97529502 Code(s): M10.9 - GOUT, UNSPECIFIED Priority: Low Current Visit: No Qualifiers: Gout site: unspecified site Gout etiology: unspecified cause Chronicity: unspecified Qualified Code(s): M10.9 - Gout, unspecified (10) Spinal stenosis of lumbar region SNOMED Code(s): 45243240 Code(s): M48.061 - SPINAL STENOSIS, LUMBAR REGION WITHOUT NEUROGENIC MATT Priority: Low Current Visit: No Qualifiers: Neurogenic claudication status: unspecified Qualified Code(s): M48.061 - Spinal stenosis, lumbar region without neurogenic claudication (11) Type II diabetes mellitus SNOMED Code(s): 27758041 Code(s): E11.9 - TYPE 2 DIABETES MELLITUS WITHOUT COMPLICATIONS Priority: Medium Current Visit: Yes Qualifiers: Diabetes mellitus half-way insulin use: unspecified watermelon inspector insulin use status Diabetes mellitus complication status: with unspecified complications Qualified Code(s): E11.8 - Type 2 diabetes mellitus with unspecified complications (12) Hypothyroidism SNOMED Code(s): 00254252 Code(s): E03.9 - HYPOTHYROIDISM, UNSPECIFIED Priority: Medium Current Visit: No Qualifiers: Hypothyroidism type: unspecified Qualified Code(s): E03.9 - Hypothyroidism , unspecified (13) Cerebrovascular disease SNOMED Code(s): 40869050 Code(s): I67.9 - CEREBROVASCULAR DISEASE, UNSPECIFIED Priority: Low Current Visit: No (14) Coronary artery disease SNOMED Code(s): 13688124 Code(s): I25.10 - ATHSCL HEART DISEASE OF [place] CORONARY ARTERY W/O ANG PCTRS Priority: Low Current Visit: No Qualifiers: Coronary Disease-Associated Artery/Lesion type: unspecified vessel or lesion type [place] vs. transplanted heart: [place] heart Associated angina: without angina Qualified Code(s): I25.10 - Atherosclerotic heart disease of [place] coronary artery without angina pectoris (15) Hypertension SNOMED Code(s): 88437521 Code(s): I10 - ESSENTIAL (PRIMARY) HYPERTENSION Priority: Medium Current Visit: No Qualifiers: Hypertension type: unspecified Qualified Code(s): I10 - Essential (primary ) hypertension Problem List Initiated/Reviewed/Updated: Yes My Orders Last 24 Hours: My Active Orders 04/30/18 14:23 Blood Glucose Check, Bedside [RC] QIDACANDBED 04/30/18 14:52 Scopolamine [Transderm-Scop] 1.5 mg TRDERM Q72H PRN 04/30/18 17:00 metFORMIN [Glucophage] 850 mg PO BIDMEALS Plan: I/P: Acute: S/P left total knee arthroplasty - post-operative day 0 -DVT prophylaxis and pain management per primary care team -PT/OT -IS/RT -Monitor oxygen saturation -Titrate oxygen as needed -Vital signs stable -Monitor labs -Pre-operative Hgb was 15.2 -Pre-operative uric acid 8.2 -Pre-operative GFR 62 -A1C 6.3 Osteoarthritis of left knee -Pain management per primary care team Post-operative nausea and vomiting -Vomited x1, still nauseated -Zofran -Scopolamine patch -Resolved on assessment Chronic: ICD HTN HLD 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 Her PCP is Dr. Smith at [facility] Thank you for allowing us to participate in the care of this patient!! Requesting Provider: Dr. De Guzman Date Consult Requested: 04/30/18 Reason for Consult: Post-operative medical management Patient History Reviewed: Yes Admission H&P Reviewed: Yes Time Spent (in minutes): 45
--- NOTE | 2018-04-30 15:47 | CR ---
Left knee: AP and lateral views left knee were obtained. Comparison: Previous left knee exam of 05/01/13. Left knee prosthesis is seen. Components are aligned. Underlying bony structures are intact. Soft tissue air noted. Impression: 1. Satisfactory postop radiographic appearance of recently placed left knee prosthesis. Diagnostic code #2
[2018-04-30] MEDS: ceFAZolin 2 GM in Premix Bag 1 BAG IV SCH (16:14)
[2018-04-30] MEDS ORDERED: Insulin Aspart 100 Units/ML 3 ML Pen SUBCUT SCH (17:00)
--- NOTE | 2018-04-30 17:30 | PCM.SN ---
- Free Text/Narrative Note: Left selective femoral nerve block at the adductor canal for post-procedure pain control Time Out: 1231 Start: 1235 End: 1240 Chart reviewed. Consent signed. Questions answered. Appropriate monitors applied. Time out performed. Left mid-shaft femur evaluated with ultrasound. Scanning medially femur, I was able to identify the femoral artery in the adductor canal. The saphenous nerve was lateral to the artery. The skin was prepped lateral to the ultrasound probe with chlorahexadine. The 21ga 4 insulated block needle was inserted under direct ultrasound guidance into the adductor canal. 20mL of 0.5% ropivacaine with 1:200,000 epinephrine was injected cirmcumferentially about the nerve with intermittent negative aspiration every 5mL. Patient tolerated the procedure well. See pictures on progress note and vital signs on nurses notes. Block completed postoperatively. Denis Rose CRNA
[2018-04-30] MEDS ORDERED: Insulin Detemir 100 Units/ML 3 ML Pen SUBCUT SCH ×2 (21:00)
[2018-04-30] MEDS ORDERED: Famotidine 20 MG Tab PO SCH (21:00)
[2018-04-30] MEDS ORDERED: Diclofenac Sodium 1% Gel 100 GM Tube TOP SCH (21:00)
[2018-04-30] MEDS: Docusate Sodium 100 MG Cap PO SCH (21:30)
[2018-05-01] MEDS: ceFAZolin 2 GM in Premix Bag 1 BAG IV SCH ×2 (00:56→08:20)
[2018-05-01] MEDS: Acetaminophen/oxyCODONE 325-5 MG Tab PO PRN (04:56)
[2018-05-01] MEDS ORDERED: Levothyroxine 25 MCG Tab PO SCH (06:00)
--- NOTE | 2018-05-01 06:27 | PCM.CONSN ---
- General Info Date of Service: 05/01/18 Admission Dx/Problem (Free Text): Admission Diagnosis/Problem Admission Diagnosis/Problem Osteoarthritis of knee Subjective Update: In to see Mellisa. She is lying in bed. She is doing well. She has been working with therapy. We have weaned her off of oxygen. She has urinated. She did vomit once while ambulating today however the nausea resolved quickly and she has not had any issues since. Functional Status: Reports: Pain Controlled, Tolerating Diet, Ambulating, Urinating, Incentive Spirometry. Denies: New Symptoms - Review of Systems General: Reports: No Symptoms HEENT: Reports: No Symptoms Pulmonary: Reports: No Symptoms Cardiovascular: Reports: No Symptoms Gastrointestinal: Reports: No Symptoms Genitourinary: Reports: No Symptoms Musculoskeletal: Reports: Joint Pain Skin: Reports: No Symptoms Neurological: Reports: No Symptoms Psychiatric: Reports: No Symptoms - Patient Data Vitals - Most Recent: Last Vital Signs Temp 98.2 F 05/01/18 04:37 Pulse 96 05/01/18 04:37 Resp 16 05/01/18 04:37 BP 112/43 L 05/01/18 04:37 Pulse Ox 92 L 05/01/18 04:37 Weight - Most Recent: 198 lb I&O - Last 24 Hours: Intake & Output 04/30/18 04/30/18 05/01/18 14:59 22:59 06:59 Intake Total 500 500 500 Output Total 100 450 Balance 500 400 50 Lab Results Last 24 Hours: Laboratory Results - last 24 hr 04/30/18 04/30/18 04/30/18 Range/Units 07:51 14:31 17:29 POC Glucose 171 H 239 H 205 H (80-115) mg/dL 04/30/18 05/01/18 Range/Units 22:26 06:13 POC Glucose 177 H 220 H (80-115) mg/dL Med Orders - Current: Current Medications Allopurinol (Zyloprim) 300 mg PO DAILY [facility] Aspirin (Halfprin) 81 mg PO DAILY [facility] Bisacodyl (Dulcolax) 5 mg PO DAILY PRN PRN Reason: Constipation Cholecalciferol (Vitamin D3) 5,000 unit PO DAILY [facility] Cyclobenzaprine HCl (Flexeril) 10 mg PO TID PRN PRN Reason: Spasms Diphenhydramine HCl (Benadryl) 12.5 mg IVPUSH Q6H PRN PRN Reason: pruritis Docusate Sodium (Colace) 100 mg PO BID [facility] Last Admin: 04/30/18 21:30 Dose: 100 mg Famotidine (Pepcid) 10 mg PO DAILY [facility] Furosemide (Lasix) 80 mg PO DAILY [facility] Cefazolin Sodium/Dextrose 2 gm (/ Premix) 50 mls @ 100 mls/hr IV Q8H [facility] Stop: 05/01/18 08:59 Last Admin: 05/01/18 00:56 Dose: 100 mls/hr Insulin Aspart (Novolog) 32 unit SUBCUT WITHBREAKFAST [facility]; Protocol Insulin Aspart (Novolog) 36 unit SUBCUT WITHLUNCH [facility]; Protocol Last Admin: 04/30/18 14:42 Dose: 36 units Insulin Aspart (Novolog) 30 unit SUBCUT WITHDINNER [facility]; Protocol Last Admin: 04/30/18 17:59 Dose: 30 units Insulin Detemir (Levemir) 72 unit SUBCUT QAM [facility] Insulin Detemir (Levemir) 66 unit SUBCUT BEDTIME [facility] Last Admin: 04/30/18 21:30 Dose: 66 units Ketorolac Tromethamine (Toradol) 15 mg IVPUSH Q6H PRN PRN Reason: Pain Levothyroxine Sodium (Synthroid) 50 mcg PO [email or web address] Levothyroxine Sodium (Levothyroxine) 25 mcg PO [email or web address] Last Admin: 05/01/18 06:10 Dose: 25 mcg Lisinopril (Prinivil) 20 mg PO DAILY [facility] Magnesium Hydroxide (Milk Of Magnesia) 30 ml PO BID PRN PRN Reason: Constipation [facility]) [facility] Last Admin: 05/01/18 06:11 Dose: 850 mg Metoprolol Succinate (Toprol Xl) 200 mg PO DAILY [facility] Morphine Sulfate (Morphine) 2 mg IVPUSH Q2H PRN PRN Reason: Breakthrough Pain Naloxone HCl (Narcan) 0.1 mg IVPUSH Q5M PRN PRN Reason: Oversedation Ondansetron HCl (Zofran) 4 mg IVPUSH Q6H PRN PRN Reason: Nausea/Vomiting Last Admin: 04/30/18 14:42 Dose: 4 mg Oxycodone/Acetaminophen (Percocet 325-5 Mg) 1 - 2 tab PO Q4H PRN PRN Reason: Pain Last Admin: 05/01/18 04:56 Dose: 2 tab Potassium Chloride (Klor-Con M20) 20 meq PO DAILY [facility] Rivaroxaban (Xarelto) 10 mg PO DAILY [facility] Rosuvastatin Calcium (Crestor) 40 mg PO DAILY [facility] Scopolamine (Transderm-Scop) 1.5 mg TRDERM Q72H PRN PRN Reason: Nausea/Vomiting Last Admin: 04/30/18 16:15 Dose: 1.5 mg Senna (Senna) 8.6 mg PO BID PRN PRN Reason: Constipation Discontinued Medications Acetaminophen (Tylenol) 975 mg PO ONETIME ONE Stop: 04/30/18 07:16 Last Admin: 04/30/18 08:40 Dose: 975 mg Bupivacaine HCl (Marcaine 0.25%) Confirm Administered Dose 30 ml .ROUTE .STK- MED ONE Stop: 04/30/18 07:40 Last Admin: 04/30/18 10:37 Dose: 30 ml Bupivacaine HCl (Sensorcaine-Mpf 0.75%) Confirm Administered Dose 30 ml .ROUTE .STK-MED ONE Stop: 04/30/18 08:56 Cefazolin Sodium (Ancef) Confirm Administered Dose 2 gm .ROUTE .STK-MED ONE Stop: 04/30/18 07:39 Last Admin: 04/30/18 10:32 Dose: 2 gm Cefazolin Sodium (Ancef) Confirm Administered Dose 2 gm .ROUTE .STK-MED ONE Stop: 04/30/18 08:32 Morphine Sulfate 8 mg/Epinephrine HCl 0.3 mg/Cefuroxime Sodium 750 mg/Ketorolac Tromethamine 30 mg/Sodium Chloride 27.9 ml 0 mg .XX ONETIME ONE Stop: 04/30/18 10:01 Last Admin: 04/30/18 15:29 Dose: Not Given Diclofenac Sodium (Voltaren 1% Gel) gm TOP BID [facility] Epinephrine HCl (Adrenalin) Confirm Administered Dose 1 mg .ROUTE .STK-MED ONE Stop: 04/30/18 12:28 Famotidine (Pepcid) 20 mg PO Q12H [facility] Fentanyl (Sublimaze) 50 mcg IVPUSH Q5M PRN PRN Reason: Pain Lactated Ringer's (Ringers, Lactated) 1,000 mls @ 125 mls/hr IV ASDIRECTED [facility] Stop: 04/30/18 18:00 Last Admin: 04/30/18 07:40 Dose: 125 mls/hr Lidocaine HCl (Xylocaine-Mpf 1%) Confirm Administered Dose 4 mls @ as directed .ROUTE .STK-MED ONE Stop: 04/30/18 08:27 Lidocaine HCl (Xylocaine-Mpf 1%) Confirm Administered Dose 2 mls @ as directed .ROUTE .STK-MED ONE Stop: 04/30/18 08:56 Insulin Detemir (Levemir) 72 unit SUBCUT QAM [facility] Insulin Detemir (Levemir) 66 unit SUBCUT BEDTIME [facility] Iodine (Iodine 2% Mild Tincture) Confirm Administered Dose 30 ml .ROUTE .STK- MED ONE Stop: 04/30/18 07:40 Last Admin: 04/30/18 10:29 Dose: 18 ml Lidocaine/Sodium Bicarbonate (Buffered Lidocaine 1% In Ns 8.4%) 0.25 ml IDERM ONETIME PRN PRN Reason: Prior to IV Start Stop: 04/30/18 18:00 Last Admin: 04/30/18 07:39 Dose: 0.25 ml Non-Formulary Medication (Albuterol Sulfate [Proair Respiclick]) 2 puff IH Q4H PRN PRN Reason: Shortness of Breath Non-Formulary Medication (Exenatide Microspheres [Bydureon]) 2 mg SQ MO [facility] Last Admin: 04/30/18 15:30 Dose: Not Given Non-Formulary Medication (Ubidecarenone) 100 mg PO DAILY [facility] Ondansetron HCl (Zofran) 4 mg IVPUSH ONETIME PRN PRN Reason: Nausea/Vomiting Oxycodone HCl (Oxycontin) 10 mg PO ONETIME ONE Stop: 04/30/18 07:16 Last Admin: 04/30/18 08:40 Dose: 10 mg Pregabalin (Lyrica) 50 mg PO ONETIME ONE Stop: 04/30/18 07:16 Last Admin: 04/30/18 08:40 Dose: 50 mg Propofol (Diprivan 20 Ml) Confirm Administered Dose 600 mg .ROUTE .STK-MED ONE Stop: 04/30/18 08:25 Propofol (Diprivan 20 Ml) Confirm Administered Dose 200 mg .ROUTE .STK-MED ONE Stop: 04/30/18 10:45 Ropivacaine (Naropin 0.5%) Confirm Administered Dose 30 ml .ROUTE .STK-MED ONE Stop: 04/30/18 12:28 Sodium Chloride (Saline Flush) 10 ml FLUSH ASDIRECTED PRN PRN Reason: Keep Vein Open Stop: 04/30/18 18:00 Tranexamic Acid (Cyklokapron) Confirm Administered Dose 1,000 mg .ROUTE .STK- MED ONE Stop: 04/30/18 07:39 Last Admin: 04/30/18 10:44 Dose: 1,000 mg Vancomycin HCl (Vancomycin) Confirm Administered Dose 1 gm .ROUTE .STK-MED ONE Stop: 04/30/18 07:39 Last Admin: 04/30/18 10:40 Dose: 1 gm - Exam Quality Assessment: DVT Prophylaxis General: Alert, Oriented, Cooperative, No Acute Distress HEENT: Pupils Equal, Pupils Reactive, EOMI, Mucous Membr. Moist/[place] Neck: Supple, Trachea Midline, No JVD Lungs: Clear to Auscultation, Normal Respiratory Effort Cardiovascular: Regular Rate, Regular Rhythm GI/Abdominal Exam: Normal Bowel Sounds, Soft, Non-Tender, No Distention (Female) Exam: Deferred Back Exam: Normal Inspection, Full Range of Motion Extremities: No Pedal Edema, Normal Capillary Refill, Leg Pain, Limited Range of Motion, Other (Bandage on left leg. Cooling pack in place ) Peripheral Pulses: 2+: Radial (L), Radial (R), Posterior Tibial (L), Posterior Tibial (R), Dorsalis Pedis (L), Dorsalis Pedis (R) Skin: Warm, Dry, Intact Wound/Incisions: Dressing Dry and Intact, No Drainage Neurological: No New Focal Deficit Psy/Mental Status: Alert, Normal Affect, Normal Mood Consult PN Assessment/Plan POD#: 1 Procedures: Procedures ASSAY OF AMYLASE (09/25/15) ASSAY OF LIPASE (09/25/15) ASSAY OF MAGNESIUM (09/25/15) ASSAY OF NATRIURETIC PEPTIDE (09/25/15) ASSAY OF PHOSPHORUS (09/25/15) ASSAY OF TROPONIN QUANT (01/22/18) COMPLETE CBC W/AUTO DIFF WBC (01/22/18) COMPREHEN METABOLIC PANEL (01/22/18) CT ABD & PELVIS W/O CONTRAST (09/25/15) CT ANGIOGRAPHY CHEST (01/22/18) CT HEAD/BRAIN W/O DYE (01/16/18) CT NECK SPINE W/O DYE (07/11/14) DXA BONE DENSITY AXIAL (05/04/17) ELECTROCARDIOGRAM TRACING (01/22/18) EMERGENCY DEPT VISIT (01/22/18) EMERGENCY DEPT VISIT (01/16/18) EMERGENCY DEPT VISIT (09/25/15) EMERGENCY DEPT VISIT (07/11/14) FIBRIN DEGRADATION QUANT (01/22/18) GLUCOSE BLOOD TEST (09/25/15) HYDRATE IV INFUSION ADD-ON (09/25/15) ROUTINE VENIPUNCTURE (01/22/18) THER/PROPH/DIAG INJ IV PUSH (01/22/18) TX/PRO/DX INJ NEW DRUG ADDON (09/25/15) TX/PRO/DX INJ SAME DRUG TIMBER FALLER (09/25/15) URINALYSIS AUTO W/SCOPE (09/25/15) X-RAY EXAM CHEST 1 VIEW (01/22/18) X-RAY EXAM HIP UNI 2-3 VIEWS (01/16/18) X-RAY EXAM OF FEMUR 2/> (01/16/18) (1) S/P total knee arthroplasty SNOMED Code(s): 4751023623223, 422247192, 1413141981181 Code(s): Z96.659 - PRESENCE OF UNSPECIFIED ARTIFICIAL KNEE JOINT Priority: High Current Visit: Yes Qualifiers: Laterality: left Qualified Code(s): Z96.652 - Presence of left artificial knee joint (2) Osteoarthritis SNOMED Code(s): 970620217 Code(s): M19.90 - UNSPECIFIED OSTEOARTHRITIS, UNSPECIFIED SITE Priority: High Current Visit: Yes Qualifiers: Osteoarthritis location: knee Osteoarthritis type: primary Laterality: left Qualified Code(s): M17.12 - Unilateral primary osteoarthritis, left knee (3) CHF (congestive heart failure) SNOMED Code(s): 32846897 Code(s): I50.9 - HEART FAILURE, UNSPECIFIED Priority: Medium Current Visit: No Qualifiers: Heart failure type: unspecified Heart failure chronicity: chronic Qualified Code(s): I50.9 - Heart failure, unspecified (4) HLD (hyperlipidemia) SNOMED Code(s): 86767317 Code(s): E78.5 - HYPERLIPIDEMIA, UNSPECIFIED Priority: Medium Current Visit: No Qualifiers: Hyperlipidemia type: unspecified Qualified Code(s): E78.5 - Hyperlipidemia , unspecified (5) Splenic artery aneurysm SNOMED Code(s): 64034832 Code(s): I72.8 - ANEURYSM OF OTHER SPECIFIED ARTERIES Priority: Low Current Visit: No (6) Asthma SNOMED Code(s): 105641117 Code(s): J45.909 - UNSPECIFIED ASTHMA, UNCOMPLICATED Priority: Medium Current Visit: No Qualifiers: Asthma severity: unspecified severity Asthma persistence: unspecified Asthma complication type: unspecified Qualified Code(s): J45.909 - Unspecified asthma, uncomplicated (7) Hypertonicity of bladder SNOMED Code(s): 420272479 Code(s): N31.8 - OTHER NEUROMUSCULAR DYSFUNCTION OF BLADDER Priority: Low Current Visit: No (8) Chronic back pain SNOMED Code(s): 732106696 Code(s): M54.9 - DORSALGIA, UNSPECIFIED; G89.29 - OTHER CHRONIC PAIN Priority: Medium Current Visit: No Qualifiers: Back pain location: back pain in unspecified location Back pain laterality : unspecified Qualified Code(s): M54.9 - Dorsalgia, unspecified; G89.29 - Other chronic pain (9) Gout SNOMED Code(s): 06295025 Code(s): M10.9 - GOUT, UNSPECIFIED Priority: Low Current Visit: No Qualifiers: Gout site: unspecified site Gout etiology: unspecified cause Chronicity: unspecified Qualified Code(s): M10.9 - Gout, unspecified (10) Spinal stenosis of lumbar region SNOMED Code(s): 62121896 Code(s): M48.061 - SPINAL STENOSIS, LUMBAR REGION WITHOUT NEUROGENIC MATT Priority: Low Current Visit: No Qualifiers: Neurogenic claudication status: unspecified Qualified Code(s): M48.061 - Spinal stenosis, lumbar region without neurogenic claudication (11) Type II diabetes mellitus SNOMED Code(s): 47741153 Code(s): E11.9 - TYPE 2 DIABETES MELLITUS WITHOUT COMPLICATIONS Priority: Medium Current Visit: Yes Qualifiers: Diabetes mellitus intermediate insulin use: unspecified intermediate insulin use status Diabetes mellitus complication status: with unspecified complications Qualified Code(s): E11.8 - Type 2 diabetes mellitus with unspecified complications (12) Hypothyroidism SNOMED Code(s): 22811574 Code(s): E03.9 - HYPOTHYROIDISM, UNSPECIFIED Priority: Medium Current Visit: No Qualifiers: Hypothyroidism type: unspecified Qualified Code(s): E03.9 - Hypothyroidism , unspecified (13) Cerebrovascular disease SNOMED Code(s): 79502800 Code(s): I67.9 - CEREBROVASCULAR DISEASE, UNSPECIFIED Priority: Low Current Visit: No (14) Coronary artery disease SNOMED Code(s): 89869926 Code(s): I25.10 - ATHSCL HEART DISEASE OF [place] CORONARY ARTERY W/O ANG PCTRS Priority: Low Current Visit: No Qualifiers: Coronary Disease-Associated Artery/Lesion type: unspecified vessel or lesion type [place] vs. transplanted heart: [place] heart Associated angina: without angina Qualified Code(s): I25.10 - Atherosclerotic heart disease of [place] coronary artery without angina pectoris (15) Hypertension SNOMED Code(s): 25692952 Code(s): I10 - ESSENTIAL (PRIMARY) HYPERTENSION Priority: Medium Current Visit: No Qualifiers: Hypertension type: unspecified Qualified Code(s): I10 - Essential (primary ) hypertension Problem List Initiated/Reviewed/Updated: Yes My Orders Last 24 Hours: My Active Orders 04/30/18 14:23 Blood Glucose Check, Bedside [RC] QIDACANDBED 04/30/18 14:52 Scopolamine [Transderm-Scop] 1.5 mg TRDERM Q72H PRN 04/30/18 17:00 metFORMIN [Glucophage] 850 mg PO BIDMEALS Plan: I/P: Acute: S/P left total knee arthroplasty - post-operative day 1 -DVT prophylaxis and pain management per primary care team -PT/OT -IS/RT -Monitor oxygen saturation -Titrate oxygen as needed -Vital signs stable -Monitor labs -Pre-operative Hgb was 15.2; today 11.6 -Pre-operative uric acid 8.2 -Pre-operative GFR 62; today >60 -A1C 6.3 Osteoarthritis of left knee -Pain management per primary care team Resolved: Post-operative nausea and vomiting -Vomited x1, still nauseated -Zofran -Scopolamine patch -Resolved on assessment Chronic: ICD HTN HLD 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 Her PCP is Dr. Smith at Thank you for allowing us to participate in the care of this patient!! Overall Mellisa is doing quite well. She has been working with PT/OT. She has urinated. She did vomit once while ambulating and now her nausea has resolved. She has urinated. We have been working to wean her off oxygen and she is doing well currently. Encouraged to continue to use IS. From a hospitalist standpoint she is clear for discharge.
[2018-05-01] MEDS ORDERED: Insulin Aspart 100 Units/ML 3 ML Pen SUBCUT SCH (07:00)
[2018-05-01] MEDS ORDERED: Insulin Detemir 100 Units/ML 3 ML Pen SUBCUT SCH ×2 (08:00)
[2018-05-01] MEDS: Docusate Sodium 100 MG Cap PO SCH (08:21)
--- NOTE | 2018-05-01 08:43 | PCM.SURGPN ---
- General Info Date of Service: 05/01/18 POD#: 1 Functional Status: Reports: Pain Controlled, Tolerating Diet, Ambulating, Urinating, Incentive Spirometry, Other (The pt states she is doing well and her pain is well controlled.) - Patient Data Vitals - Most Recent: Last Vital Signs Temp 97.5 F 05/01/18 08:18 Pulse 100 05/01/18 08:21 Resp 16 05/01/18 08:18 BP 107/51 L 05/01/18 08:21 Pulse Ox 93 L 05/01/18 08:18 Weight - Most Recent: 198 lb I&O - Last 24 Hours: Intake & Output 04/30/18 05/01/18 05/01/18 22:59 06:59 14:59 Intake Total 980 500 Output Total 100 450 Balance 880 50 Lab Results Last 24 Hrs: Laboratory Results - last 24 hr 04/30/18 04/30/18 04/30/18 Range/Units 14:31 17:29 22:26 WBC (3.98-10.04) K/mm3 RBC (3.98-5.22) M/mm3 Hgb (11.2-15.7) gm/L Hct (34.1-44.9) % MCV (79.4-94.8) fl MCH (25.6-32.2) pg MCHC (32.2-35.5) g/dl RDW Std Deviation (36.4-46.3) fL Plt Count (182-369) K/mm3 MPV (9.4-12.3) fl Sodium (136-145) mEq/L Potassium (3.5-5.1) mEq/L Chloride (98-107) mEq/L Carbon Dioxide (21-32) mEq/L Anion Gap (5-15) BUN (7-18) mg/dL Creatinine (0.55-1.02) mg/dL Est Cr Clr Drug Dosing mL/min Estimated GFR (MDRD) (>60) mL/min BUN/Creatinine Ratio (14-18) Glucose (80-115) mg/dL POC Glucose 239 H 205 H 177 H (80-115) mg/dL Calcium (8.5-10.1) mg/dL Total Bilirubin (0.2-1.0) mg/dL AST (15-37) U/L ALT (14-59) U/L Alkaline Phosphatase (46-116) U/L Total Protein (6.4-8.2) g/dl Albumin (3.4-5.0) g/dl Globulin gm/dL Albumin/Globulin Ratio (1-2) 05/01/18 05/01/18 05/01/18 Range/Units 06:13 06:32 06:32 WBC 11.05 H (3.98-10.04) K/mm3 RBC 4.29 (3.98-5.22) M/mm3 Hgb 11.6 (11.2-15.7) gm/L Hct 37.4 (34.1-44.9) % MCV 87.2 (79.4-94.8) fl MCH 27.0 (25.6-32.2) pg MCHC 31.0 L (32.2-35.5) g/dl RDW Std Deviation 46.9 H (36.4-46.3) fL Plt Count 178 L (182-369) K/mm3 MPV 9.5 (9.4-12.3) fl Sodium 134 L (136-145) mEq/L Potassium 4.8 (3.5-5.1) mEq/L Chloride 101 (98-107) mEq/L Carbon Dioxide 27 (21-32) mEq/L Anion Gap 10.8 (5-15) BUN 18 (7-18) mg/dL Creatinine 0.9 (0.55-1.02) mg/dL Est Cr Clr Drug Dosing 42.38 mL/min Estimated GFR (MDRD) > 60 (>60) mL/min BUN/Creatinine Ratio 20.0 H (14-18) Glucose 214 H (80-115) mg/dL POC Glucose 220 H (80-115) mg/dL Calcium 9.2 (8.5-10.1) mg/dL Total Bilirubin 0.9 (0.2-1.0) mg/dL AST 25 (15-37) U/L ALT 27 (14-59) U/L Alkaline Phosphatase 75 (46-116) U/L Total Protein 6.4 (6.4-8.2) g/dl Albumin 3.0 L (3.4-5.0) g/dl Globulin 3.4 gm/dL Albumin/Globulin Ratio 0.9 L (1-2) Med Orders - Current: Current Medications Allopurinol (Zyloprim) 300 mg PO DAILY PENDING SALE TO [facility] Last Admin: 05/01/18 08:22 Dose: 300 mg Aspirin (Halfprin) 81 mg PO DAILY PENDING SALE TO [facility] Last Admin: 05/01/18 08:22 Dose: 81 mg Bisacodyl (Dulcolax) 5 mg PO DAILY PRN PRN Reason: Constipation Cholecalciferol (Vitamin D3) 5,000 unit PO DAILY PENDING SALE TO [facility] Last Admin: 05/01/18 08:21 Dose: 5,000 unit Cyclobenzaprine HCl (Flexeril) 10 mg PO TID PRN PRN Reason: Spasms Diphenhydramine HCl (Benadryl) 12.5 mg IVPUSH Q6H PRN PRN Reason: pruritis Docusate Sodium (Colace) 100 mg PO BID PENDING SALE TO [facility] Last Admin: 05/01/18 08:21 Dose: 100 mg Famotidine (Pepcid) 10 mg PO DAILY PENDING SALE TO [facility] Last Admin: 05/01/18 08:21 Dose: 10 mg Furosemide (Lasix) 80 mg PO DAILY PENDING SALE TO [facility] Last Admin: 05/01/18 08:22 Dose: 80 mg Cefazolin Sodium/Dextrose 2 gm (/ Premix) 50 mls @ 100 mls/hr IV Q8H PENDING SALE TO [facility] Stop: 05/01/18 08:59 Last Admin: 05/01/18 08:20 Dose: 100 mls/hr Insulin Aspart (Novolog) 32 unit SUBCUT WITHBREAKFAST PENDING SALE TO [facility]; Protocol Last Admin: 05/01/18 08:23 Dose: 32 units Insulin Aspart (Novolog) 36 unit SUBCUT WITHLUNCH PENDING SALE TO [facility]; Protocol Last Admin: 04/30/18 14:42 Dose: 36 units Insulin Aspart (Novolog) 30 unit SUBCUT WITHDINNER PENDING SALE TO [facility]; Protocol Last Admin: 04/30/18 17:59 Dose: 30 units Insulin Detemir (Levemir) 72 unit SUBCUT QAM PENDING SALE TO [facility] Last Admin: 05/01/18 08:23 Dose: 72 units Insulin Detemir (Levemir) 66 unit SUBCUT BEDTIME PENDING SALE TO [facility] Last Admin: 04/30/18 21:30 Dose: 66 units Ketorolac Tromethamine (Toradol) 15 mg IVPUSH Q6H PRN PRN Reason: Pain Levothyroxine Sodium (Synthroid) 50 mcg PO [email or web address] Levothyroxine Sodium (Levothyroxine) 25 mcg PO [email or web address] Last Admin: 05/01/18 06:10 Dose: 25 mcg Lisinopril (Prinivil) 20 mg PO DAILY PENDING SALE TO [facility] Last Admin: 05/01/18 08:22 Dose: 20 mg Magnesium Hydroxide (Milk Of Magnesia) 30 ml PO BID PRN PRN Reason: Constipation Metformin HCl (Glucophage) 850 mg PO BIDMEALS PENDING SALE TO [facility] Last Admin: 05/01/18 06:11 Dose: 850 mg Metoprolol Succinate (Toprol Xl) 200 mg PO DAILY PENDING SALE TO [facility] Last Admin: 05/01/18 08:21 Dose: 200 mg Morphine Sulfate (Morphine) 2 mg IVPUSH Q2H PRN PRN Reason: Breakthrough Pain Naloxone HCl (Narcan) 0.1 mg IVPUSH Q5M PRN PRN Reason: Oversedation Ondansetron HCl (Zofran) 4 mg IVPUSH Q6H PRN PRN Reason: Nausea/Vomiting Last Admin: 04/30/18 14:42 Dose: 4 mg Oxycodone/Acetaminophen (Percocet 325-5 Mg) 1 - 2 tab PO Q4H PRN PRN Reason: Pain Last Admin: 05/01/18 04:56 Dose: 2 tab Potassium Chloride (Klor-Con M20) 20 meq PO DAILY PENDING SALE TO [facility] Last Admin: 05/01/18 08:21 Dose: 20 meq Rivaroxaban (Xarelto) 10 mg PO DAILY PENDING SALE TO [facility] Last Admin: 05/01/18 08:22 Dose: 10 mg Rosuvastatin Calcium (Crestor) 40 mg PO DAILY PENDING SALE TO [facility] Last Admin: 05/01/18 08:20 Dose: 40 mg Scopolamine (Transderm-Scop) 1.5 mg TRDERM Q72H PRN PRN Reason: Nausea/Vomiting Last Admin: 04/30/18 16:15 Dose: 1.5 mg Senna (Senna) 8.6 mg PO BID PRN PRN Reason: Constipation Discontinued Medications Acetaminophen (Tylenol) 975 mg PO ONETIME ONE Stop: 04/30/18 07:16 Last Admin: 04/30/18 08:40 Dose: 975 mg Bupivacaine HCl (Marcaine 0.25%) Confirm Administered Dose 30 ml .ROUTE .STK- MED ONE Stop: 04/30/18 07:40 Last Admin: 04/30/18 10:37 Dose: 30 ml Bupivacaine HCl (Sensorcaine-Mpf 0.75%) Confirm Administered Dose 30 ml .ROUTE .STK-MED ONE Stop: 04/30/18 08:56 Cefazolin Sodium (Ancef) Confirm Administered Dose 2 gm .ROUTE .STK-MED ONE Stop: 04/30/18 07:39 Last Admin: 04/30/18 10:32 Dose: 2 gm Cefazolin Sodium (Ancef) Confirm Administered Dose 2 gm .ROUTE .ST-MED ONE Stop: 04/30/18 08:32 Morphine Sulfate 8 mg/Epinephrine HCl 0.3 mg/Cefuroxime Sodium 750 mg/Ketorolac Tromethamine 30 mg/Sodium Chloride 27.9 ml 0 mg .XX ONETIME ONE Stop: 04/30/18 10:01 Last Admin: 04/30/18 15:29 Dose: Not Given Diclofenac Sodium (Voltaren 1% Gel) gm TOP BID PENDING SALE TO [facility] Epinephrine HCl (Adrenalin) Confirm Administered Dose 1 mg .ROUTE .ST-MED ONE Stop: 04/30/18 12:28 Famotidine (Pepcid) 20 mg PO Q12H PENDING SALE TO [facility] Fentanyl (Sublimaze) 50 mcg IVPUSH Q5M PRN PRN Reason: Pain Lactated Ringer's (Ringers, Lactated) 1,000 mls @ 125 mls/hr IV ASDIRECTED PENDING SALE TO [facility] Stop: 04/30/18 18:00 Last Admin: 04/30/18 07:40 Dose: 125 mls/hr Lidocaine HCl (Xylocaine-Mpf 1%) Confirm Administered Dose 4 mls @ as directed .ROUTE .ST-MED ONE Stop: 04/30/18 08:27 Lidocaine HCl (Xylocaine-Mpf 1%) Confirm Administered Dose 2 mls @ as directed .ROUTE .[facility]-MED ONE Stop: 04/30/18 08:56 Insulin Detemir (Levemir) 72 unit SUBCUT QAM PENDING SALE TO [facility] Insulin Detemir (Levemir) 66 unit SUBCUT BEDTIME PENDING SALE TO [facility] Iodine (Iodine 2% Mild Tincture) Confirm Administered Dose 30 ml .ROUTE .STK- MED ONE Stop: 04/30/18 07:40 Last Admin: 04/30/18 10:29 Dose: 18 ml Lidocaine/Sodium Bicarbonate (Buffered Lidocaine 1% In Ns 8.4%) 0.25 ml IDERM ONETIME PRN PRN Reason: Prior to IV Start Stop: 04/30/18 18:00 Last Admin: 04/30/18 07:39 Dose: 0.25 ml Non-Formulary Medication (Albuterol Sulfate [Proair Respiclick]) 2 puff IH Q4H PRN PRN Reason: Shortness of Breath Non-Formulary Medication (Exenatide Microspheres [Bydureon]) 2 mg SQ MO MAEGAN Last Admin: 04/30/18 15:30 Dose: Not Given Non-Formulary Medication (Ubidecarenone) 100 mg PO DAILY MAEGAN Ondansetron HCl (Zofran) 4 mg IVPUSH ONETIME PRN PRN Reason: Nausea/Vomiting Oxycodone HCl (Oxycontin) 10 mg PO ONETIME ONE Stop: 04/30/18 07:16 Last Admin: 04/30/18 08:40 Dose: 10 mg Pregabalin (Lyrica) 50 mg PO ONETIME ONE Stop: 04/30/18 07:16 Last Admin: 04/30/18 08:40 Dose: 50 mg Propofol (Diprivan 20 Ml) Confirm Administered Dose 600 mg .ROUTE .STK-MED ONE Stop: 04/30/18 08:25 Propofol (Diprivan 20 Ml) Confirm Administered Dose 200 mg .ROUTE .STK-MED ONE Stop: 04/30/18 10:45 Ropivacaine (Naropin 0.5%) Confirm Administered Dose 30 ml .ROUTE .STK-MED ONE Stop: 04/30/18 12:28 Sodium Chloride (Saline Flush) 10 ml FLUSH ASDIRECTED PRN PRN Reason: Keep Vein Open Stop: 04/30/18 18:00 Tranexamic Acid (Cyklokapron) Confirm Administered Dose 1,000 mg .ROUTE .STK- MED ONE Stop: 04/30/18 07:39 Last Admin: 04/30/18 10:44 Dose: 1,000 mg Vancomycin HCl (Vancomycin) Confirm Administered Dose 1 gm .ROUTE .STK-MED ONE Stop: 04/30/18 07:39 Last Admin: 04/30/18 10:40 Dose: 1 gm - Exam Wound/Incisions: Dressing Dry and Intact General: Alert, Cooperative, No Acute Distress Extremities: Other (NVS intact for LLE. Homans negative BLE.) - Problem List Review Problem List Initiated/Reviewed/Updated: Yes - My Orders Last 24 Hours: Active Orders 24 hr Category Date Time Status Blood Glucose Check, Bedside [RC] QIDACANDBED Care 04/30/18 14:23 Active Cooling Warming Measures [RC] ASDIRECTED Care 04/30/18 11:27 Active Oxygen Therapy [RC] ASDIRECTED Care 04/30/18 11:27 Inactive Pulse Oximetry [RC] ASDIRECTED Care 04/30/18 11:27 Active Ready for Discharge [RC] PER UNIT ROUTINE Care 05/01/18 07:37 Active Regular Diet [DIET] Diet 04/30/18 Lunch Active Allopurinol [Zyloprim] Med 05/01/18 09:00 Active 300 mg PO DAILY Aspirin [Halfprin] Med 05/01/18 09:00 Active 81 mg PO DAILY Cholecalciferol (Vitamin D3) [Vitamin D3] Med 05/01/18 09:00 Active 5,000 unit PO DAILY Docusate Sodium [Colace] Med 04/30/18 21:00 Active 100 mg PO BID Famotidine [Pepcid] Med 05/01/18 09:00 Active 10 mg PO DAILY Furosemide [Lasix] Med 05/01/18 09:00 Active 80 mg PO DAILY Insulin Aspart [NovoLOG] Med 04/30/18 17:00 Active 30 unit SUBCUT WITHDINNER Insulin Aspart [NovoLOG] Med 05/01/18 07:00 Active 32 unit SUBCUT WITHBREAKFAST Insulin Aspart [NovoLOG] Med 05/01/18 11:00 Active 36 unit SUBCUT WITHLUNCH Insulin Detemir [Levemir] Med 04/30/18 21:00 Active 66 unit SUBCUT BEDTIME Insulin Detemir [Levemir] Med 05/01/18 08:00 Active 72 unit SUBCUT QAM Levothyroxine Med 05/01/18 06:00 Active 25 mcg PO [email or web address] Levothyroxine [Synthroid] Med 05/02/18 06:00 Active 50 mcg PO [email or web address] Lisinopril [Prinivil] Med 05/01/18 09:00 Active 20 mg PO DAILY Metoprolol Succinate [Toprol XL] Med 05/01/18 09:00 Active 200 mg PO DAILY Potassium Chloride [Klor-Con M20] Med 05/01/18 09:00 Active 20 meq PO DAILY Rivaroxaban [Xarelto] Med 05/01/18 09:00 Active 10 mg PO DAILY Rosuvastatin [Crestor] Med 05/01/18 09:00 Active 40 mg PO DAILY Scopolamine [Transderm-Scop] Med 04/30/18 14:52 Active 1.5 mg TRDERM Q72H PRN ceFAZolin [Ancef] 2 gm Med 04/30/18 16:30 Active Premix Bag 1 bag IV Q8H diphenhydrAMINE [Benadryl] Med 04/30/18 11:27 Active 12.5 mg IVPUSH Q6H PRN metFORMIN [Glucophage] Med 04/30/18 17:00 Active 850 mg PO BIDMEALS Medication Orders Allopurinol (Zyloprim) 300 mg PO DAILY PENDING SALE TO [facility] Last Admin: 05/01/18 08:22 Dose: 300 mg Aspirin (Halfprin) 81 mg PO DAILY PENDING SALE TO [facility] Last Admin: 05/01/18 08:22 Dose: 81 mg Bisacodyl (Dulcolax) 5 mg PO DAILY PRN PRN Reason: Constipation Cholecalciferol (Vitamin D3) 5,000 unit PO DAILY PENDING SALE TO [facility] Last Admin: 05/01/18 08:21 Dose: 5,000 unit Cyclobenzaprine HCl (Flexeril) 10 mg PO TID PRN PRN Reason: Spasms Diphenhydramine HCl (Benadryl) 12.5 mg IVPUSH Q6H PRN PRN Reason: pruritis Docusate Sodium (Colace) 100 mg PO BID PENDING SALE TO [facility] Last Admin: 05/01/18 08:21 Dose: 100 mg Admin: 04/30/18 21:30 Dose: 100 mg Famotidine (Pepcid) 10 mg PO DAILY PENDING SALE TO [facility] Last Admin: 05/01/18 08:21 Dose: 10 mg Furosemide (Lasix) 80 mg PO DAILY PENDING SALE TO [facility] Last Admin: 05/01/18 08:22 Dose: 80 mg Cefazolin Sodium/Dextrose 2 gm (/ Premix) 50 mls @ 100 mls/hr IV Q8H PENDING SALE TO [facility] Stop: 05/01/18 08:59 Last Admin: 05/01/18 08:20 Dose: 100 mls/hr Infusion: 05/01/18 01:26 Dose: 100 mls/hr Admin: 05/01/18 00:56 Dose: 100 mls/hr Infusion: 04/30/18 16:44 Dose: 100 mls/hr Admin: 04/30/18 16:14 Dose: 100 mls/hr Insulin Aspart (Novolog) 32 unit SUBCUT WITHBREAKFAST PENDING SALE TO [facility]; Protocol Last Admin: 05/01/18 08:23 Dose: 32 units Insulin Aspart (Novolog) 36 unit SUBCUT WITHLUNCH PENDING SALE TO [facility]; Protocol Last Admin: 04/30/18 14:42 Dose: 36 units Insulin Aspart (Novolog) 30 unit SUBCUT WITHDINNER PENDING SALE TO [facility]; Protocol Last Admin: 04/30/18 17:59 Dose: 30 units Insulin Detemir (Levemir) 72 unit SUBCUT QAM PENDING SALE TO [facility] Last Admin: 05/01/18 08:23 Dose: 72 units Insulin Detemir (Levemir) 66 unit SUBCUT BEDTIME PENDING SALE TO [facility] Last Admin: 04/30/18 21:30 Dose: 66 units Ketorolac Tromethamine (Toradol) 15 mg IVPUSH Q6H PRN PRN Reason: Pain Levothyroxine Sodium (Synthroid) 50 mcg PO [email or web address] Levothyroxine Sodium (Levothyroxine) 25 mcg PO [email or web address] Last Admin: 05/01/18 06:10 Dose: 25 mcg Lisinopril (Prinivil) 20 mg PO DAILY PENDING SALE TO [facility] Last Admin: 05/01/18 08:22 Dose: 20 mg Magnesium Hydroxide (Milk Of Magnesia) 30 ml PO BID PRN PRN Reason: Constipation [facility] ([facility]ucophage) [facility] Last Admin: 05/01/18 06:11 Dose: 850 mg Admin: 04/30/18 16:15 Dose: 850 mg Metoprolol Succinate (Toprol Xl) 200 mg PO DAILY PENDING SALE TO [facility] Last Admin: 05/01/18 08:21 Dose: 200 mg Morphine Sulfate (Morphine) 2 mg IVPUSH Q2H PRN PRN Reason: Breakthrough Pain Naloxone HCl (Narcan) 0.1 mg IVPUSH Q5M PRN PRN Reason: Oversedation Ondansetron HCl (Zofran) 4 mg IVPUSH Q6H PRN PRN Reason: Nausea/Vomiting Last Admin: 04/30/18 14:42 Dose: 4 mg Oxycodone/Acetaminophen (Percocet 325-5 Mg) 1 - 2 tab PO Q4H PRN PRN Reason: Pain Last Admin: 05/01/18 04:56 Dose: 2 tab Admin: 04/30/18 15:06 Dose: 2 tab Potassium Chloride (Klor-Con M20) 20 meq PO DAILY PENDING SALE TO [facility] Last Admin: 05/01/18 08:21 Dose: 20 meq Rivaroxaban (Xarelto) 10 mg PO DAILY PENDING SALE TO [facility] Last Admin: 05/01/18 08:22 Dose: 10 mg Rosuvastatin Calcium (Crestor) 40 mg PO DAILY PENDING SALE TO [facility] Last Admin: 05/01/18 08:20 Dose: 40 mg Scopolamine (Transderm-Scop) 1.5 mg TRDERM Q72H PRN PRN Reason: Nausea/Vomiting Last Admin: 04/30/18 16:15 Dose: 1.5 mg Senna (Senna) 8.6 mg PO BID PRN PRN Reason: Constipation - Assessment Assessment (Free Text/Narrative):: POD#1 - left TKA - Plan Plan (Free Text/Narrative):: 1. Hgb 11.6. 2. Xarelto for VTE prophylaxis. SCDs, TEDs. 3. Likely d/c to home today. The pt will have the assistance of her son. The pt's case was discussed with Dr. De Guzman.
[2018-05-01] MEDS ORDERED: Rivaroxaban 10 MG Tab PO SCH (09:00)
[2018-05-01] MEDS ORDERED: Non-Formulary Medication 1 Each (Ubidecarenone 100 MG) PO SCH (09:00)
[2018-05-01] MEDS ORDERED: Famotidine 20 MG Tab PO SCH (09:00)
[2018-05-01] MEDS ORDERED: Lisinopril 20 MG Tab PO SCH (09:00)
[2018-05-01] MEDS ORDERED: Aspirin 81 MG Tab.EC PO SCH (09:00)
[2018-05-01] MEDS ORDERED: Rosuvastatin 10 MG Tab PO SCH (09:00)
[2018-05-01] MEDS ORDERED: Potassium Chloride 20 MEQ Tab.ER PO SCH (09:00)
[2018-05-01] MEDS ORDERED: Furosemide 40 MG Tab PO SCH (09:00)
[2018-05-01] MEDS ORDERED: Metoprolol Succinate 50 MG Tab.ER PO SCH (09:00)
[2018-05-01] MEDS ORDERED: Allopurinol 300 MG Tab PO SCH (09:00)
[2018-05-01] MEDS ORDERED: Cholecalciferol (Vitamin D3) 5,000 UNIT Tab PO SCH (09:00)
[2018-05-01] MEDS: Ondansetron 4 MG/2 ML SDV IVPUSH PRN (09:36)
[2018-05-01 12:16] VITALS: BP 104/70
[2018-05-01] MEDS: Insulin Aspart 100 Units/ML 3 ML Pen SUBCUT SCH (13:00)
[2018-05-02] MEDS ORDERED: Levothyroxine 50 MCG Tab PO SCH (06:00)
--- NOTE | 2018-05-07 09:04 | OR ---
DATE OF OPERATION: 04/30/2018 SURGEON: Gordo De Guzman MD OPERATION PERFORMED: Left total knee arthroplasty. PREOPERATIVE DIAGNOSIS: Left knee osteoarthrosis. POSTOPERATIVE DIAGNOSIS: Left knee osteoarthrosis. ANESTHESIA: Local MAC with spinal. ANESTHESIA PROVIDER: Milton Rodriguez. ASSISTANTS: 1. Delma Medel PA-C. 2. Sharonda Robert LPN. ESTIMATED BLOOD LOSS: 30 mL. COMPLICATIONS: None. CONDITION: Stable. IMPLANTS: 1. [place] size 3 femur. 2. Kasey size 3 Russell tibial baseplate. 3. Kasey size 3 9-mm PS X3 polyethylene. 4. [place] size 29 x 9 mm patella. DESCRIPTION OF PROCEDURE: The patient was identified in the preop holding area. Proper site was marked and identified by the surgeon. The patient was taken back to the operating theater. After adequate anesthesia, the patient's left lower extremity had a nonsterile tourniquet applied and it was then sterilely prepped and draped in the usual sterile fashion. OR timeout was performed. The patient received 2 grams IV Ancef. At this time, left lower extremity was exsanguinated. Tourniquet was insufflated to 300 mmHg. Standard medial parapatellar incision was made. Medial parapatellar arthrotomy was created. Deep fibers of the MCL were raised and anterior fat pad was resected. At this time, attention was turned to the patella. The patella measured a 22 and it was resected to a 13 for a 29 x 9 mm patella, but the patient was noted to have significantly soft bone, so even putting the clamp on did compress the patella even to a 12. Then, at that point, we were worried about possible patella fracture secondary to the very severe osteoporosis. At this time, it was noted that we were going to cement. Drill holes were then drilled and found to be in adequate position. The drill was then drilled in the distal femur and the intramedullary distal femoral cutting guide was then placed. 10 mm was resected off the distal femur and was found to be an adequate resection. Sizing guide was placed. It was found to be a [place] size 3 femur that was shown on the implant record at the beginning of this dictation. The drill holes were drilled for the epicondylar axis using Whitesides line and epicondyles as reference. At this time, the 4-in- 1 cutting block was placed. An anterior posterior and anterior and posterior chamfer cuts were then completed. The correct size box cut was then placed and the box cut was completed and found to be an adequate resection. Attention was turned to the tibia. The posterior medial lateral retractors were placed. The extramedullary tibial guide was placed. It was placed in the old footprint of the ACL. It was aligned with the center of the ankle and 0 degrees of slope, 9 mm was then resected off the unaffected lateral side. There was found to be an acceptable reduction. At this time, posterior osteophytes were removed along with medial and lateral meniscus. A trial implant was placed with a correct sized tibia that was mentioned at the beginning of the dictation. A [place] size 3 9-mm PS X3 polyethylene was then placed. The patient's knee was brought through range of motion. The patella was tracking centrally and was stable to varus and valgus stress. Alignment was found to be roughly at 0 degrees. At this time, cement was mixed on the back table. The tibia was stamped and drilled in proper rotation. All cut surfaces were irrigated with pulse lavage irrigation with Ancef and then completely dried. Once this was completed, then the cement was ready. The universal tibial base plate was cemented in place. Next, the Kasey size [address] and the Kasey size 3 9-mm PS X3 polyethylene was placed. The patient's knee was brought into full extension. Excess cement was removed. The patella was then cemented in place at this time. Tourniquet was deflated. One liter dilute Betadine solution was irrigated through the knee along with 3 L of pulse lavage irrigation with Ancef. Periarticular injection was then completed. The patient's knee was brought through a range of motion. Once the cement had time to set up and it was found to be stable to varus valgus stress, the patella was tracking centrally with full range of motion. At this time, a #2 barbed suture was used for closure of the medial parapatellar arthrotomy. Topical tranexamic acid was placed. 2-0 Vicryl was used subcutaneously, a running 3-0 Monocryl was used subcuticularly. The patient tolerated the procedure well and was sent to the PACU in a stable condition. MMODAL /[id number]
== END 2018-05-01 13:20 | disposition home or self-care (01) | DRG 470 ==
LOC: JD.SDS 07:08 → JD.MS 09:34
PROVIDERS: ADMIT Orthopaedic Surgery; ATTEND Orthopaedic Surgery
PROC: 0SRD0J9 Replacement of Left Knee Joint with Synthetic Substitute, Cemented, Open Approach (ICD-10-PCS; principal; 2018-04-30)
PROC: 3E0T3BZ Introduction of Anesthetic Agent into Peripheral Nerves and Plexi, Percutaneous Approach (ICD-10-PCS; 2018-04-30)
DX: M17.12 Unilateral primary osteoarthritis, left knee (principal); E78.5 Hyperlipidemia, unspecified; I25.10 Atherosclerotic heart disease of native coronary artery without angina pectoris; Z95.1 Presence of aortocoronary bypass graft; N31.8 Other neuromuscular dysfunction of bladder; G89.29 Other chronic pain; M54.9 Dorsalgia, unspecified; E11.9 Type 2 diabetes mellitus without complications; I67.9 Cerebrovascular disease, unspecified; E03.9 Hypothyroidism, unspecified; I11.0 Hypertensive heart disease with heart failure; I50.9 Heart failure, unspecified; M85.80 Other specified disorders of bone density and structure, unspecified site; J45.909 Unspecified asthma, uncomplicated; M48.061 Spinal stenosis, lumbar region without neurogenic claudication; E66.9 Obesity, unspecified; M10.9 Gout, unspecified; N20.0 Calculus of kidney; R11.2 Nausea with vomiting, unspecified; M81.0 Age-related osteoporosis without current pathological fracture; Z87.891 Personal history of nicotine dependence; Z88.8 Allergy status to other drugs, medicaments and biological substances; Z79.899 Other long term (current) drug therapy; Z79.4 Long term (current) use of insulin; Z79.82 Long term (current) use of aspirin; Z95.810 Presence of automatic (implantable) cardiac defibrillator
CPT/HCPCS: 01402; 36415; 64447; 73560-26-LT; 73560-LT; 80053; 82962; 85027; 87641; 97110-GP; 97116-GP; 97161-GP; 97165-GO; 97535-GO; A9270-GY; C1713; C1776; J0171; J0690; J0697; J1815-GY; J1885; J2001; J2270; J2405; J2704; J2795; J3370; J3490; J7120

== ENCOUNTER 2020-03-26 12:32 | Inpatient (IN) | payer MEDICARE, OTHER ==
[2020-03-26] MEDS ORDERED: Sodium Chloride 0.9% 1,000 ML IV SCH (15:00)
[2020-03-26] MEDS ORDERED: Ondansetron 4 MG/2 ML SDV IVPUSH ONE (15:02)
[2020-03-26] MEDS ORDERED: Alum Hydrox/Mag Hydrox/Simeth 30 ML, Lidocaine 2% 15 ML PO STA ×2 (15:31)
--- NOTE | 2020-03-26 16:16 | EDM.PDOC ---
ED HPI GENERAL MEDICAL PROBLEM - General Chief Complaint: Abdominal Pain Stated Complaint: NEEDS IV FLUIDS SENT BY [facility] Time Seen by Provider: 03/26/20 14:00 Source of Information: Reports: Patient History Limitations: Reports: No Limitations - History of Present Illness INITIAL COMMENTS - FREE TEXT/NARRATIVE: Mellisa Marc is a 69-year-old female who presents the emergency room with chief complaints of epigastric pain that has been intermittent for the past month. Patient does report that her abdomen feels bloated, she is experiencing diarrhea, nausea and vomiting. Patient reports the pain is in the upper gastric region and in her middle back. Patient does report having nausea and vomiting for the past 2 to 3 days. She is able to eat but does have periods of vomiting. She denies any constipation but does report having loose bowel movements. Her last bowel movement was today. Patient does have a history of gastritis and reports that she has increased indigestion and heartburn over the last month. Has any fever, chills, headache or chest pain. Patient is diabetic but does not check her sugar levels on a regular basis. She is currently taking Lantus and NovoLog 3 times a day. Duration: Getting Worse, Intermittent Location: Reports: Abdomen (epigastric pain radiates into middle back), Back Quality: Reports: Burning Severity: Mild Improves with: Reports: None Worsens with: Reports: None Associated Symptoms: Reports: Loss of Appetite, Nausea/Vomiting. Denies: Chest Pain, Cough, Diaphoresis, Fever/Chills, Rash, Shortness of Breath, Syncope Treatments MANAGER TRAINEE: Reports: NSAIDS, Other (see below) Other Treatments MANAGER TRAINEE: pepcid Upper Abdominal Pain Score (Numeric/FACES): 7 - Related Data Allergies Allergy/AdvReac Type Severity Reaction Status Date / Time simvastatin [From Zocor] AdvReac Severe Muscle Verified 03/26/20 12:49 Aches Home Meds: Home Meds Furosemide 80 mg PO DAILY 09/25/15 [History] Insulin Aspart [NovoLOG] 0 units SUBCUT TID 09/25/15 [History] Insulin Glarg,Human.Rec.Analog [LantUS Solostar] 0 units SUBCUT BID 09/25/15 [ History] Levothyroxine Sodium 25 mcg PO SUTUTHSA 09/25/15 [History] Lisinopril 20 mg PO DAILY 09/25/15 [History] Rosuvastatin [Crestor] 40 mg PO BEDTIME 09/25/15 [History] allopurinoL [Zyloprim] 300 mg PO DAILY 09/25/15 [History] Levothyroxine 50 mcg PO MOWEFR 01/22/18 [History] Metoprolol Succinate 200 mg PO DAILY 01/22/18 [History] Potassium Chloride [Klor-Con M20] 20 meq PO DAILY 01/22/18 [History] Aspirin [Halfprin] 81 mg PO DAILY 04/26/18 [History] Cholecalciferol (Vitamin D3) [Vitamin D3] 5,000 unit PO DAILY 04/26/18 [History] Diclofenac Sodium [Voltaren] 1 applic TP BID 04/26/18 [History] Exenatide Microspheres [Bydureon] 2 mg SQ MO 04/26/18 [History] Famotidine [Pepcid] 10 mg PO DAILY 04/26/18 [History] Ubidecarenone [Co Q-10] 100 mg PO DAILY 04/26/18 [History] metFORMIN HCl [Glucophage] 850 mg PO BIDMEALS 04/30/18 [History] Docusate Sodium [Colace] 100 mg PO BID cap 05/01/18 [Rx] Magnesium Hydroxide [Milk of Magnesia] 30 ml PO BID PRN cup 05/01/18 [Rx] Rivaroxaban [Xarelto] 10 mg PO DAILY #40 tablet 05/01/18 [Rx] Sennosides [Senna] 8.6 mg PO BID PRN tablet 05/01/18 [Rx] bisacodyL [Dulcolax] 5 mg PO DAILY PRN tablet 05/01/18 [Rx] Past Medical History HEENT History: Reports: None Other HEENT History: wear glasses Cardiovascular History: Reports: CAD, Heart Failure, High Cholesterol, Hypertension, Other (See Below) Other Cardiovascular History: Splenic artery aneurysm Respiratory History: Reports: Asthma Gastrointestinal History: Reports: Colon Polyp Genitourinary History: Reports: Renal Calculus, Other (See Below) Other Genitourinary History: Hypertonicity of bladder [employer] History: Reports: Musculoskeletal History: Reports: Back Pain, Chronic, Gout, Other (See Below) Other Musculoskeletal History: Spinal stenosis of lumbar region, left knee pain Neurological History: Reports: Other (See Below) Other Neuro History: Cerebrovascular disease Psychiatric History: Reports: None Endocrine/Metabolic History: Reports: Diabetes, Type II, Hypothyroidism, Obesity /BMI 30+, Osteopenia Hematologic History: Reports: None Immunologic History: Reports: None Oncologic (Cancer) History: Reports: None Dermatologic History: Reports: None - Past Surgical History Head Surgeries/Procedures: Reports: None Other HEENT Surgeries/Procedures: Arthroplasty for TMJ Cardiovascular Surgical History: Reports: Coronary Artery Bypass, Other (See Below) Other Cardiovascular Surgeries/Procedures: Cardiac cath Respiratory Surgical History: Reports: None GI Surgical History: Reports: Appendectomy, Cholecystectomy, Colonoscopy, EGD, Polypectomy Female Surgical History: Reports: Hysterectomy, Lithotripsy/ESWL Endocrine Surgical History: Reports: None Musculoskeletal Surgical History: Reports: Other (See Below) Other Musculoskeletal Surgeries/Procedures:: Osteoplasty radius ulna shortening Oncologic Surgical History: Reports: None Dermatological Surgical History: Reports: None Social & Family History - Family History Family Medical History: Noncontributory - Tobacco Use Smoking Status *Q: Former Smoker Used Tobacco, but Quit: Yes Month/Year Tobacco Last Used: 28 years ago - Caffeine Use Caffeine Use: Reports: Coffee, Soda, Tea - Recreational Drug Use Recreational Drug Use: No ED ROS GENERAL - Review of Systems Review Of Systems: Comprehensive ROS is negative, except as noted in HPI. Constitutional: Denies: Fever, Chills Respiratory: Denies: Shortness of Breath Cardiovascular: Denies: Chest Pain Endocrine: Denies: Fatigue GI/Abdominal: Reports: Abdominal Pain, Diarrhea, Decreased Appetite, Nausea, Vomiting. Denies: Constipation : Reports: No Symptoms Musculoskeletal: Reports: No Symptoms Skin: Reports: No Symptoms Neurological: Denies: Headache, Weakness Psychiatric: Reports: No Symptoms Hematologic/Lymphatic: Reports: No Symptoms Immunologic: Reports: No Symptoms ED EXAM, GI/ABD - Physical Exam Exam: See Below Exam Limited By: No Limitations General Appearance: Alert, WD/WN, No Apparent Distress Ears: Normal External Exam, Normal Canal, Hearing Grossly Normal, Normal TMs Nose: Normal Inspection, Normal Mucosa, No Blood Throat/Mouth: Normal Inspection, Normal Lips, Normal Teeth, Normal Gums, Normal Oropharynx, Normal Voice, No Airway Compromise Head: Atraumatic, Normocephalic Neck: Normal Inspection, Supple, Non-Tender, Full Range of Motion Respiratory/Chest: No Respiratory Distress, Lungs Clear, Normal Breath Sounds, No Accessory Muscle Use, Chest Non-Tender Cardiovascular: Normal Peripheral Pulses, Regular Rate, Rhythm, No Edema, No Gallop, No JVD, No Murmur, No Rub GI/Abdominal Exam: Normal Bowel Sounds, Soft, Non-Tender, No Organomegaly, No Distention, No Mass, Pelvis Stable Back Exam: CVA Tenderness (L), CVA Tenderness (R) Extremities: Normal Inspection, Normal Range of Motion, Non-Tender, No Pedal Edema, Normal Capillary Refill Neurological: Alert, Oriented, Normal Cognition, Normal Gait, No Motor/Sensory Deficits Psychiatric: Normal Affect, Normal Mood Skin Exam: Warm, Dry, Intact, Normal Color, No Rash Lymphatic: No Adenopathy EKG INTERPRETATION EKG Date: 03/26/20 Time: 15:03 Rhythm: NSR EKG Interpretation Comments: Normal sinus rhythm no AE, first-degree AV block, left bundle branch block, QRS not prolonged Course - Vital Signs Text/Narrative:: Mellisa Marc is a 69-year-old female who presents the emergency room chief complaints of epigastric abdominal pain that radiates into her back with nausea and vomiting for the past month. She was seen earlier today by her PCP and sent over for further evaluation. She did have blood work done at her primary care doctor's office I will order urinalysis and lipase in addition I will start IV fluid and medicate with Pepcid and GI cocktail. Last Recorded V/S: Last Vital Signs Temp 98.5 F 03/26/20 12:43 Pulse 79 03/26/20 12:43 Resp 16 03/26/20 12:43 BP 93/57 L 03/26/20 12:43 Pulse Ox 97 03/26/20 12:43 - Orders/Labs/Meds Orders: Active Orders 24 hr Category Date Time Status EKG Documentation Completion [RC] STAT Care 03/26/20 14:53 Active Abdomen Pelvis wo Cont [CT] Stat Exams 03/26/20 18:34 Taken Sodium Chloride 0.9% [Normal Saline] 1,000 ml Med 03/26/20 15:00 Active IV ASDIRECTED Medication Orders Sodium Chloride (Normal Saline) 1,000 mls @ 500 mls/hr IV ASDIRECTED MAEGAN Last Admin: 03/26/20 15:27 Dose: 500 mls/hr Labs: Laboratory Tests 03/26/20 03/26/20 Range/Units 15:30 16:45 Lipase 1180 H (73-393) U/L Urine Color Light yellow (Yellow) Urine Appearance Clear (Clear) Urine pH 6.0 (5.0-8.0) Ur Specific [place] 1.015 (1.005-1.030) Urine Protein 1+ H (Negative) Urine Glucose (UA) Negative (Negative) Urine Ketones Negative (Negative) Urine Occult Blood 1+ H (Negative) Urine Nitrite Negative (Negative) Urine Bilirubin Negative (Negative) Urine Urobilinogen 0.2 (0.2-1.0) Ur Leukocyte Esterase Negative (Negative) Urine RBC 5-10 H (0-5) /hpf Urine WBC 0-5 (0-5) /hpf Ur Squamous Epith Cells 5-10 H (0-5) /hpf Urine Bacteria Few (FEW) /hpf Urine Mucus Not seen (FEW) /hpf Meds: Medications Generic Name Dose Route Start Last Admin Trade Name Freq PRN Reason Stop Dose Admin Sodium Chloride 1,000 mls @ 500 mls/hr 03/26/20 15:00 03/26/20 15:27 Normal Saline IV 500 mls/hr ASDIRECTED MAEGAN Administration Discontinued Medications Generic Name Dose Route Start Last Admin Trade Name Freq PRN Reason Stop Dose Admin Al Hydroxide/Mg Hydroxide 30 0 ml 03/26/20 15:31 03/26/20 15:53 ml/ Lidocaine HCl 15 ml PO 03/26/20 15:32 45 ml ONETIME STA Administration Ondansetron HCl 4 mg 03/26/20 15:02 03/26/20 15:27 Zofran IVPUSH 03/26/20 15:03 4 mg ONETIME ONE Administration - Re-Assessments/Exams Free Text/Narrative Re-Assessment/Exam: 03/26/20 [id number] she states that she feels better after receiving IV fluid, IV Pepcid and GI cocktail. 03/26/20 17:51 Face is elevated at 1180. Glucose is 162 bun of 54 creatinine is 4.32 this is up from 1.542 months ago sodium 140 potassium 4.4 chloride 105 CO2 21 anion gap is 18 calcium 9 total protein 7.1 albumin 4.1 alk phos is 60 AST 24 ALT 27 hemoglobin A1c 6 is 9.6 WBC 10.1 H&H is 13.1 and 40.1 platelet count 254. I will consult Dr. Janet Silver for possible Obs admission for renal insufficiency and pancreatitis. 03/26/20 17:53 03/26/20 18:26 Dr. Silver at bedside evaluating patient. She agreed to admit and treat patient. I discussed plan and treatment with patient she is in agreement to stay in the hospital. Abdominal CT pending. Patient is stable at this time. Departure - Departure Time of Disposition: 19:03 Disposition: Admitted As Inpatient 64 Clinical Impression: Renal insufficiency Abdominal pain Qualifiers: Abdominal location: epigastric Qualified Code(s): R10.13 - Epigastric pain Pancreatitis Qualifiers: Chronicity: acute Pancreatitis type: unspecified pancreatitis type Acute pancreatitis complication: unspecified Qualified Code(s): K85.90 - Acute pancreatitis without necrosis or infection, unspecified - Discharge Information Referrals: Bernadette Smith MD [Primary Care Provider] - Forms: ED Department Discharge Sepsis Event Note - Evaluation Sepsis Screening Result: No Definite Risk - Focused Exam Vital Signs: Vital Signs Temp Pulse Resp BP Pulse Ox 03/26/20 12:43 98.5 F 79 16 93/57 L 97 Date Exam was Performed: 03/26/20 Time Exam was Performed: 19:02 - My Orders Last 24 Hours: My Active Orders 03/26/20 14:53 EKG Documentation Completion [RC] STAT 03/26/20 15:00 Sodium Chloride 0.9% [Normal Saline] 1,000 ml IV ASDIRECTED 03/26/20 18:34 Abdomen Pelvis wo Cont [CT] Stat - Assessment/Plan Last 24 Hours: My Active Orders 03/26/20 14:53 EKG Documentation Completion [RC] STAT 03/26/20 15:00 Sodium Chloride 0.9% [Normal Saline] 1,000 ml IV ASDIRECTED 03/26/20 18:34 Abdomen Pelvis wo Cont [CT] Stat
[2020-03-26] MEDS ORDERED: Acetaminophen 325 MG Tab PO PRN (19:50)
[2020-03-26] MEDS ORDERED: diphenhydrAMINE 50 MG/ML SDV IVPUSH PRN (19:50)
[2020-03-26] MEDS ORDERED: Acetaminophen/HYDROcodone 325-5 MG Tab PO PRN (19:50)
[2020-03-26] MEDS ORDERED: Morphine 2 MG/ML Syringe IVPUSH PRN (19:50)
[2020-03-26] MEDS ORDERED: Ondansetron 4 MG/2 ML SDV IVPUSH PRN (19:50)
[2020-03-26] MEDS ORDERED: Acetaminophen 650 MG Supp RECTAL PRN (19:50)
[2020-03-26] MEDS ORDERED: hydrALAZINE 20 MG/ML SDV IVPUSH PRN (19:58)
[2020-03-26] MEDS ORDERED: cefTRIAXone 1 GM in Sodium Chloride 0.9% 100 ML IV SCH ×2 (20:00→22:00)
[2020-03-26] MEDS ORDERED: D5 1/2 NS w/ 20 mEq/L KCl 1,000 ML IV SCH (20:00)
--- NOTE | 2020-03-26 20:15 | PCM.HP.2 ---
Addendum entered and electronically signed by Alfred Hill PA-C 03/26/20 21: 26: Added assessment and plan: Acute on chronic renal insufficiency: BUN and creatinine performed prior to admission were 52 and 4.32 respectively. Unknown baseline. Will request medical records from PCP tomorrow. In the meantime, patient will be IV fluids with 1/2 NS 20 meq KCL at 75 ml/hr to prevent fluid overload. CT of abdomen and pelvis remains pending. Will continue monitoring renal functions. CHF with unknown systolic functions: Patient does not appear fluid overloaded or hypoxic on admission. Will hold home oral furosemide for now. Will request for medical records, and last echocardiogram report. Will continue home oral metoprolol and statins as describe below. Renal stones: found incidentally on x-ray of abdomen prior to admission. CT of abdomen and pelvis remains pending. Will further evaluate with CT imaging, and may consider urology consultation if needed based on imaging findings. Will continue to monitor renal functions. Original Note: <Alfred Hill - Last Filed: 03/26/20 21:05> H&P History of Present Illness - General Date of Service: 03/26/20 Admit Problem/Dx: Admission Diagnosis/Problem Admission Diagnosis/Problem Pancreatitis Abdominal pain with associated nausea and vomiting Source of Information: Patient History Limitations: Reports: No Limitations - History of Present Illness Initial Comments - Free Text/Narative: Patient is a pleasant 69 y/o female, patient of Dr. Smith, with the past medical history of morbid obesity, moderate persistent ashtma without complication, insulin dependent DM2, HTN, hyperlipidemia, CAD, CHF with unknown systolic functions, hypothyroidism, Automatic implantable cardioverter defibrillator in situ, hx of gout, hx of CVD, S/P CABG who presents to the ED complaining of epigastric pain with associated symptoms of nausea and vomiting. Patient states that her symptoms started approximately 1 month ago, and has gradually worsened. She refused to seek medical attention due to the present viral pandemia, but given her symptoms are now not tolerable she is now seeking medical help. She reports constant N/V and loose stools but denies any fever, chills, CP or palpitations, SOB, constipation, or dysuria. She states she's able to keep some food and fluids down but for the most part she has lost appetite. She denies any unintentional weight loss. Patient was evaluated by her PCP earlier today, and work up in the clinic shows wbc 10.1, hemoglobin 13.1 , glucose 162, BUN 52, creatinine 4.32, sodium 140, potassium 4.4, co2 21 ast/ alt 24/27, total bili 0.8, hemoglobin a1c 9.6. X-ray abdomen shows nonspecific bowel gas pattern, and possible renal stones. With the above findings, patient was told to come to the ED for further evaluation. In the ED, patient was found in no acute distress with stable vital signs. Initial work up reveals lipase 1180. Requested CT of abdomen and pelvis remains pending, but hospitalist services was contacted to admit patient to the medical floor for further management of acute pancreatitis. Upper Abdominal Pain Score (Numeric/FACES): 7 - Related Data Allergies/Adverse Reactions: Allergies Allergy/AdvReac Type Severity Reaction Status Date / Time simvastatin [From Zocor] AdvReac Severe Muscle Verified 03/26/20 12:49 Aches Home Medications: Home Meds Furosemide 80 mg PO DAILY 09/25/15 [History] Insulin Aspart [NovoLOG] 0 units SUBCUT TID 09/25/15 [History] Insulin Glarg,Human.Rec.Analog [LantUS Solostar] 0 units SUBCUT BID 09/25/15 [ History] Levothyroxine Sodium 25 mcg PO SUTUTHSA 09/25/15 [History] Lisinopril 20 mg PO DAILY 09/25/15 [History] Rosuvastatin [Crestor] 40 mg PO BEDTIME 09/25/15 [History] allopurinoL [Zyloprim] 300 mg PO DAILY 09/25/15 [History] Levothyroxine 50 mcg PO MOWEFR 01/22/18 [History] Metoprolol Succinate 200 mg PO DAILY 01/22/18 [History] Potassium Chloride [Klor-Con M20] 20 meq PO DAILY 01/22/18 [History] Aspirin [Halfprin] 81 mg PO DAILY 04/26/18 [History] Cholecalciferol (Vitamin D3) [Vitamin D3] 5,000 unit PO DAILY 04/26/18 [History] Diclofenac Sodium [Voltaren] 1 applic TP BID 04/26/18 [History] Exenatide Microspheres [Bydureon] 2 mg SQ MO 04/26/18 [History] Famotidine [Pepcid] 10 mg PO DAILY 04/26/18 [History] Ubidecarenone [Co Q-10] 100 mg PO DAILY 04/26/18 [History] metFORMIN HCl [Glucophage] 850 mg PO BIDMEALS 04/30/18 [History] Docusate Sodium [Colace] 100 mg PO BID cap 05/01/18 [Rx] Magnesium Hydroxide [Milk of Magnesia] 30 ml PO BID PRN cup 05/01/18 [Rx] Rivaroxaban [Xarelto] 10 mg PO DAILY #40 tablet 05/01/18 [Rx] Sennosides [Senna] 8.6 mg PO BID PRN tablet 05/01/18 [Rx] bisacodyL [Dulcolax] 5 mg PO DAILY PRN tablet 05/01/18 [Rx] Denosumab [Prolia] 60 mg SQ ASDIRECTED 03/26/20 [History] Fish Oil/[place]-3 Fatty Acids [Fish Oil 1,000 MG] 1,000 mg PO DAILY 03/26/20 [ History] Past Medical History HEENT History: Reports: None Other HEENT History: wear glasses Cardiovascular History: Reports: CAD, Heart Failure, High Cholesterol, Hypertension, Other (See Below) Other Cardiovascular History: Splenic artery aneurysm Respiratory History: Reports: Asthma Gastrointestinal History: Reports: Colon Polyp Genitourinary History: Reports: Renal Calculus, Other (See Below) Other Genitourinary History: Hypertonicity of bladder PADDED BOX SEWER History: Reports: Musculoskeletal History: Reports: Back Pain, Chronic, Gout, Other (See Below) Other Musculoskeletal History: Spinal stenosis of lumbar region, left knee pain Neurological History: Reports: Other (See Below) Other Neuro History: Cerebrovascular disease Psychiatric History: Reports: None Endocrine/Metabolic History: Reports: Diabetes, Type II, Hypothyroidism, Obesity /BMI 30+, Osteopenia Hematologic History: Reports: None Immunologic History: Reports: None Oncologic (Cancer) History: Reports: None Dermatologic History: Reports: None - Past Surgical History Head Surgeries/Procedures: Reports: None Other HEENT Surgeries/Procedures: Arthroplasty for TMJ Cardiovascular Surgical History: Reports: Coronary Artery Bypass, Other (See Below) Other Cardiovascular Surgeries/Procedures: Cardiac cath Respiratory Surgical History: Reports: None GI Surgical History: Reports: Appendectomy, Cholecystectomy, Colonoscopy, EGD, Polypectomy Female Surgical History: Reports: Hysterectomy, Lithotripsy/ESWL Endocrine Surgical History: Reports: None Musculoskeletal Surgical History: Reports: Other (See Below) Other Musculoskeletal Surgeries/Procedures:: Osteoplasty radius ulna shortening Oncologic Surgical History: Reports: None Dermatological Surgical History: Reports: None Social & Family History - Family History Family Medical History: Noncontributory - Tobacco Use Smoking Status *Q: Former Smoker Used Tobacco, but Quit: Yes Month/Year Tobacco Last Used: 28 years ago - Caffeine Use Caffeine Use: Reports: Coffee, Soda, Tea - Recreational Drug Use Recreational Drug Use: No H&P Review of Systems - Review of Systems: Review Of Systems: See Below General: Reports: Decreased Appetite HEENT: Reports: No Symptoms Pulmonary: Reports: No Symptoms Cardiovascular: Reports: No Symptoms Gastrointestinal: Reports: Abdominal Pain, Decreased Appetite, Nausea, Vomiting Genitourinary: Reports: No Symptoms Musculoskeletal: Reports: No Symptoms Skin: Reports: No Symptoms Psychiatric: Reports: No Symptoms Neurological: Reports: No Symptoms Hematologic/Lymphatic: Reports: No Symptoms Immunologic: Reports: No Symptoms Exam - Exam Exam: See Below - Vital Signs Vital Signs: Last Vital Signs Temp 98.5 F 03/26/20 12:43 Pulse 79 03/26/20 12:43 Resp 16 03/26/20 12:43 BP 93/57 L 03/26/20 12:43 Pulse Ox 97 03/26/20 12:43 Weight: 93.44 kg - Exam General: Alert, Oriented, Cooperative HEENT: Conjunctiva Clear, Mucosa Moist & Leal, Normal Nasal Septum, Pupils Equal , Pupils Reactive Neck: Supple, Trachea Midline Lungs: Clear to Auscultation, Normal Respiratory Effort Cardiovascular: Regular Rate, Regular Rhythm GI/Abdominal Exam: Normal Bowel Sounds, Tender (RUQ, EPIGASTRIC) (Female) Exam: Deferred Rectal (Female) Exam: Deferred Back Exam: Normal Inspection, Full Range of Motion Extremities: Normal Inspection, Normal Range of Motion, Non-Tender, No Pedal Edema, Normal Capillary Refill Skin: Warm, Dry, Intact Neurological: Cranial Nerves Intact Neuro Extensive - Mental Status: Alert, Oriented x3, Normal Mood/Affect, Normal Cognition, Memory Intact Neuro Extensive - Motor, Sensory, Reflexes: CN II-XII Intact Psychiatric: Alert, Normal Affect, Normal Mood - Patient Data Lab Results Last 24 hrs: Laboratory Results - last 24 hr 03/26/20 03/26/20 Range/Units 15:30 16:45 Lipase 1180 H (73-393) U/L Urine Color Light yellow (Yellow) Urine Appearance Clear (Clear) Urine pH 6.0 (5.0-8.0) Ur Specific [place] 1.015 (1.005-1.030) Urine Protein 1+ H (Negative) Urine Glucose (UA) Negative (Negative) Urine Ketones Negative (Negative) Urine Occult Blood 1+ H (Negative) Urine Nitrite Negative (Negative) Urine Bilirubin Negative (Negative) Urine Urobilinogen 0.2 (0.2-1.0) Ur Leukocyte Esterase Negative (Negative) Urine RBC 5-10 H (0-5) /hpf Urine WBC 0-5 (0-5) /hpf Ur Squamous Epith Cells 5-10 H (0-5) /hpf Urine Bacteria Few (FEW) /hpf Urine Mucus Not seen (FEW) /hpf Sepsis Event Note - Evaluation Sepsis Screening Result: No Definite Risk - Focused Exam Vital Signs: Vital Signs Temp Pulse Resp BP Pulse Ox 03/26/20 12:43 98.5 F 79 16 93/57 L 97 Date Exam was Performed: 03/26/20 Time Exam was Performed: 21:05 Problem List Initiated/Reviewed/Updated: Yes Orders Last 24hrs: Active Orders 24 hr Category Date Time Status Patient Status [ADT] Routine ADT 03/26/20 19:50 Active Patient Status [ADT] Routine ADT 03/26/20 20:02 Active Antiembolic Devices [RC] PER UNIT ROUTINE Care 03/26/20 19:54 Active Aspiration Precautions [RC] ASDIRECTED Care 03/26/20 19:55 Active Communication Order [RC] ASDIRECTED Care 03/26/20 19:50 Active Communication Order [RC] ASDIRECTED Care 03/26/20 19:50 Active Communication Order [RC] PRN Care 03/26/20 19:50 Active EKG Documentation Completion [RC] STAT Care 03/26/20 14:53 Active Enema [RC] Q2D Care 03/26/20 19:50 Active Head of Bed Elevation [RC] ASDIRECTED Care 03/26/20 19:50 Active Height and Weight [RC] DAILY Care 03/26/20 19:50 Active Intake and Output Strict [RC] Q1H Care 03/26/20 19:50 Active Notify Provider Vital Signs [RC] ASDIRECTED Care 03/26/20 19:50 Active Notify Provider [RC] ASDIRECTED Care 03/26/20 19:50 Active Notify Provider [RC] PRN Care 03/26/20 19:50 Active Oxygen Therapy [RC] ASDIRECTED Care 03/26/20 19:50 Active Up to Chair [RC] ASDIRECTED Care 03/26/20 19:50 Active Vital Signs [RC] PER UNIT ROUTINE Care 03/26/20 19:50 Active Nothing Per Oral Diet [DIET] Diet 03/26/20 Breakfast Active Abdomen Pelvis wo Cont [CT] Stat Exams 03/26/20 18:34 Taken CBC WITH AUTO DIFF [HEME] AM Lab 03/27/20 05:11 Ordered COMPREHENSIVE METABOLIC PN,CMP [CHEM] AM Lab 03/27/20 05:11 Ordered LIPASE [CHEM] AM Lab 03/27/20 05:11 Ordered LIPID PANEL [CHEM] AM Lab 03/27/20 05:11 Ordered TSH [CHEM] AM Lab 03/27/20 05:11 Ordered UA RFX CYNTHIA AND CULT IF INDIC [URIN] Routine Lab 03/26/20 20:00 Ordered Acetaminophen [Tylenol] Med 03/26/20 19:50 Active 650 mg PO Q6H PRN Acetaminophen [Tylenol] Med 03/26/20 19:50 Active 650 mg RECTAL Q6H PRN Acetaminophen/HYDROcodone [[place] 325-5 MG] Med 03/26/20 19:50 Active 1 tab PO Q6H PRN Aspirin [Halfprin] Med 03/27/20 09:00 Active 81 mg PO DAILY D5 1/2 NS w/ 20 mEq/L KCl 1,000 ml Med 03/26/20 20:00 Active IV ASDIRECTED Docusate Sodium/Sennosides [Senna Plus] Med 03/26/20 21:00 Active 2 tab PO BID Levothyroxine Med 03/27/20 19:45 Active 25 mcg PO SUTUTHSA Levothyroxine Med 03/27/20 19:45 Active 50 mcg PO MOWEFR Metoprolol Succinate [Metoprolol Succinate] Med 03/27/20 09:00 Active 200 mg PO DAILY Morphine Med 03/26/20 19:50 Active 2 mg IVPUSH Q4H PRN Ondansetron [Zofran] Med 03/26/20 19:50 Active 4 mg IVPUSH Q4H PRN Pantoprazole [ProTONIX IV] Med 03/27/20 09:00 Active 40 mg IVPUSH DAILY Rivaroxaban [Xarelto] Med 03/27/20 09:00 Active 10 mg PO DAILY Rosuvastatin [Crestor] Med 03/27/20 21:00 Active 40 mg PO BEDTIME Sodium Chloride 0.9% [Normal Saline] 1,000 ml Med 03/26/20 15:00 Active IV ASDIRECTED Sucralfate [Carafate] Med 03/26/20 21:00 Active 2 gm PO BEDTIME cefTRIAXone [Rocephin] 1 gm Med 03/26/20 20:00 Active Sodium Chloride 0.9% [Normal Saline] 100 ml IV Q24H diphenhydrAMINE [Benadryl] Med 03/26/20 19:50 Active 25 mg IVPUSH Q4H PRN hydrALAZINE [Apresoline] Med 03/26/20 19:58 Active 10 mg IVPUSH Q6H PRN polyethylene glycoL 3350 [MiraLAX] Med 03/27/20 09:00 Active 17 gm PO DAILY Antiembolic Hose [OM.PC] Routine Oth 03/26/20 19:50 Ordered Post Void Residual [OM.PC] Routine Oth 03/26/20 19:50 Ordered Resuscitation Status Routine Resus Stat 03/26/20 19:50 Ordered Medication Orders Acetaminophen (Tylenol) 650 mg PO Q6H PRN PRN Reason: Pain (Mild 1-3) or Fever Acetaminophen (Tylenol) 650 mg RECTAL Q6H PRN PRN Reason: Pain (Mild 1-3) or Fever Hydrocodone Bitart/Acetaminophen ([place] 325-5 Mg) 1 tab PO Q6H PRN PRN Reason: Pain (moderate 4-6) Aspirin (Halfprin) 81 mg PO DAILY [facility] Diphenhydramine HCl (Benadryl) 25 mg IVPUSH Q4H PRN PRN Reason: Restlessness or Allergies Hydralazine HCl (Apresoline) 10 mg IVPUSH Q6H PRN PRN Reason: Hypertension Sodium Chloride (Normal Saline) 1,000 mls @ 500 mls/hr IV ASDIRECTED MAEGAN Last Admin: 03/26/20 15:27 Dose: 500 mls/hr Ceftriaxone Sodium 1 gm/ (Sodium Chloride) 100 mls @ 200 mls/hr IV Q24H MAEGAN Potassium Chloride/Dextrose/Sod Cl (D5 1/2 Ns W/ 20 Meq/L Kcl) 1,000 mls @ 75 mls/hr IV ASDIRECTED [facility] Levothyroxine Sodium (Levothyroxine) 50 mcg PO MOWEFR [facility]EGAN Levothyroxine Sodium (Levothyroxine) 25 mcg PO SUTUTHSA [facility] Morphine Sulfate (Morphine) 2 mg IVPUSH Q4H PRN PRN Reason: Pain (severe 7-10) Non-Formulary Medication (Metoprolol Succinate [Metoprolol Succinate]) 200 mg PO DAILY MAEGAN Non-Formulary Medication (Rosuvastatin [Crestor]) 40 mg PO BEDTIME [facility]EGAN Ondansetron HCl (Zofran) 4 mg IVPUSH Q4H PRN PRN Reason: Nausea and Vomiting Pantoprazole Sodium (Protonix Iv) 40 mg IVPUSH DAILY [facility] Polyethylene Glycol (Miralax) 17 gm PO DAILY [facility] Rivaroxaban (Xarelto) 10 mg PO DAILY [facility] Senna/Docusate Sodium (Senna Plus) 2 tab PO BID [facility] Sucralfate (Carafate) 2 gm PO BEDTIME MAEGAN Assessment/Plan Comment:: Acute pancreatitis: Unknown to the cause of pancreatitis at this time. Patient has a history of cholecystectomy and no history of alcohol abuse. Lipase [address] of abdomen and pelvis is pending. Will request for lipid panel in the morning to check on triglycerides, and review home meds. We may consider MRCP to r/o malignancy if CT findings are inconclusive. In the meantime, will keep pt NPO, and start D5 with 1/2 NS and 20 meq KCL at 75 ml/hr to prevent fluid overload. Will monitor daily weight and I/O closely. Upon improvement, will advance diet slowly as tolerate it and DC D5 IV fluids, and continue cycling lipase. Questionable UTI: Urinalysis on admission shows positive urine WBC, but negative nitrite or leukocyte esterase. Will request for urine culture. In the meantime, will start Rocephin 1 g IV q24h. Will monitor closely. Insuling dependent Diabetes Type 2. Will hold home oral medications. Will give cautious Lantus 24 units SQ qhs, and FS with correctional insulin coverage 3-15 units SQ qACHS starting from FS 131. Will adjust doses of insulins as needed based on actual FSs within the next 24 hours or earlier. Will check HbA1C. Hypertension. WIll hold oral home meds for now. Will start Hydralazine 10 mg IVP q 4 hours as needed for SBP > 180 mmHg). Home meds will be on hold until the patient is off NPO status. Hyperlipidemia. Will check fasting lipid profile in am to see if the adjustment of the home dose needed. Will restart PO statins when the patient is off NPO status. History of Coronary Heart disease. The patient doesnt have any chest pain, but still at [id number] risk of an acute cardiovascular event. Will closely watch the patient clinically. If needed, will plan to start IV Metoprolol 1.25 Q 6 hours(will hold dose if HR<60/min or SBP<90 mmHg). Hypothyroidism. Home Synthroid 75 mcg po daily once pt if off NPO hopefully tomorrow. Will check TSH and Free T4 (if needed). IV Synthroid will be given if patient remains NPO. Pain Control: Acetaminophen 650mg PO Q6H PRN mild pain or fever, HYDROcodone 5/ 325mg PO Q6H PRN moderate pain, and morphine sulfate 2mg IVP Q4H PRN chest pain or severe pain. Restlessness or Allergies: Benadryl 25mg IV Q4H PRN restlessness or agitation. Nausea: In case of nausea use Zofran 4mg IVP Q4H PRN nausea. DVT Prophylaxis: Will continue home Xarelto 10 mg po daily . We will keep monitoring H&H and platelet count. UGI Bleed Prophylaxis: Protonix 40mg IV daily, Mylanta 30 mL q4h PRN indigestion. Constipation Prophylaxis: Senokot S 2 tabs PO BID, MiraLAX 17 grams PO at 1400 daily PRN no bowl movement, Fleet enema every other day if needed. CODE STATUS: DNR Disposition: Anticipated hospital stay is longer than 2 midnights. <David Da Silva - Last Filed: 03/26/20 23:02> H&P History of Present Illness - General Admit Problem/Dx: Admission Diagnosis/Problem Admission Diagnosis/Problem Pancreatitis Exam - Vital Signs Vital Signs: Last Vital Signs Temp 36.6 C 03/26/20 20:31 Pulse 83 03/26/20 20:31 Resp 19 03/26/20 20:31 BP 114/70 03/26/20 20:31 Pulse Ox 91 L 03/26/20 20:31 - Patient Data Lab Results Last 24 hrs: Laboratory Results - last 24 hr 03/26/20 03/26/20 03/26/20 Range/Units 15:30 16:45 21:34 POC Glucose 96 (83-110) mg/dL Lipase 1180 H (73-393) U/L Urine Color Light yellow (Yellow) Urine Appearance Clear (Clear) Urine pH 6.0 (5.0-8.0) Ur Specific [place] 1.015 (1.005-1.030) Urine Protein 1+ H (Negative) Urine Glucose (UA) Negative (Negative) Urine Ketones Negative (Negative) Urine Occult Blood 1+ H (Negative) Urine Nitrite Negative (Negative) Urine Bilirubin Negative (Negative) Urine Urobilinogen 0.2 (0.2-1.0) Ur Leukocyte Esterase Negative (Negative) Urine RBC 5-10 H (0-5) /hpf Urine WBC 0-5 (0-5) /hpf Ur Squamous Epith Cells 5-10 H (0-5) /hpf Urine Bacteria Few (FEW) /hpf Urine Mucus Not seen (FEW) /hpf Sepsis Event Note - Focused Exam Vital Signs: Vital Signs Temp Temp Pulse Pulse Resp BP BP 03/26/20 20:31 36.6 C 83 19 114/70 03/26/20 12:43 36.9 C 79 16 93/57 L Pulse Ox 03/26/20 20:31 91 L 03/26/20 12:43 97 Date Exam was Performed: 03/26/20 Time Exam was Performed: 23:00 Orders Last 24hrs: Active Orders 24 hr Category Date Time Status Patient Status [ADT] Routine ADT 03/26/20 22:10 Active Antiembolic Devices [RC] BID Care 03/26/20 19:54 Active Aspiration Precautions [RC] BID Care 03/26/20 19:55 Active Blood Glucose Check, Bedside [RC] Q4HR Care 03/26/20 21:21 Active Communication Order [RC] BID Care 03/26/20 19:50 Active Enema [RC] Q2D Care 03/26/20 19:50 Active Head of Bed Elevation [RC] BID Care 03/26/20 19:50 Active Height and Weight [RC] 04 Care 03/26/20 19:50 Active Notify Provider Vital Signs [RC] ASDIRECTED Care 03/26/20 19:50 Active Notify Provider [RC] PRN Care 03/26/20 19:50 Active Oxygen Therapy [RC] ASDIRECTED Care 03/26/20 19:50 Active Up to Chair [RC] BID Care 03/26/20 19:50 Active Vital Signs [RC] Q4HR Care 03/26/20 19:50 Active Nothing Per Oral Diet [DIET] Diet 03/26/20 Breakfast Active Abdomen Pelvis wo Cont [CT] Stat Exams 03/26/20 18:34 Taken CBC WITH AUTO DIFF [HEME] AM Lab 03/27/20 05:11 Ordered COMPREHENSIVE METABOLIC PN,CMP [CHEM] AM Lab 03/27/20 05:11 Ordered CULTURE URINE [RM] Routine Lab 03/26/20 15:30 Received LIPASE [CHEM] AM Lab 03/27/20 05:11 Ordered LIPID PANEL [CHEM] AM Lab 03/27/20 05:11 Ordered TSH [CHEM] AM Lab 03/27/20 05:11 Ordered Acetaminophen [Tylenol] Med 03/26/20 19:50 Active 650 mg PO Q6H PRN Acetaminophen [Tylenol] Med 03/26/20 19:50 Active 650 mg RECTAL Q6H PRN Acetaminophen/HYDROcodone [[place] 325-5 MG] Med 03/26/20 19:50 Active 1 tab PO Q6H PRN Aspirin [Halfprin] Med 03/27/20 09:00 Active 81 mg PO DAILY Docusate Sodium/Sennosides [Senna Plus] Med 03/26/20 21:00 Active 2 tab PO BID Insulin Glarg,Human.Rec.Analog [LantUS] Med 03/26/20 21:00 Active 24 unit SUBCUT BEDTIME Insulin Lispro [HumaLOG] Med 03/26/20 22:00 Active See Protocol SUBCUT QIDACANDBED Levothyroxine Med 03/28/20 06:00 Active 25 mcg PO SuTuThSa@0600 Levothyroxine [Synthroid] Med 03/27/20 06:00 Active 50 mcg PO MoWeFr@0600 Metoprolol Succinate [Toprol XL] Med 03/27/20 09:00 Active 200 mg PO DAILY Morphine Med 03/26/20 19:50 Active 2 mg IVPUSH Q4H PRN Ondansetron [Zofran] Med 03/26/20 19:50 Active 4 mg IVPUSH Q4H PRN Pantoprazole [ProTONIX IV] Med 03/27/20 09:00 Active 40 mg IVPUSH DAILY Rivaroxaban [Xarelto] Med 03/27/20 09:00 Active 10 mg PO DAILY Rosuvastatin [Crestor] Med 03/27/20 21:00 Active 40 mg PO BEDTIME Sodium Chloride 0.45% with KCl [1/2 NS with 20 mEq KCl] Med 03/26/20 21:30 Active 1,000 ml IV ASDIRECTED Sucralfate [Carafate] Med 03/26/20 21:00 Active 2 gm PO BEDTIME cefTRIAXone [Rocephin] 1 gm Med 03/26/20 22:00 Active Sodium Chloride 0.9% [Normal Saline] 100 ml IV Q24H diphenhydrAMINE [Benadryl] Med 03/26/20 19:50 Active 25 mg IVPUSH Q4H PRN hydrALAZINE [Apresoline] Med 03/26/20 19:58 Active 10 mg IVPUSH Q6H PRN polyethylene glycoL 3350 [MiraLAX] Med 03/27/20 09:00 Active 17 gm PO DAILY Antiembolic Hose [OM.PC] Routine Oth 03/26/20 19:50 Ordered Post Void Residual [OM.PC] Routine Oth 03/26/20 19:50 Ordered Resuscitation Status Routine Resus Stat 03/26/20 19:50 Ordered Medication Orders Acetaminophen (Tylenol) 650 mg PO Q6H PRN PRN Reason: Pain (Mild 1-3) or Fever Acetaminophen (Tylenol) 650 mg RECTAL Q6H PRN PRN Reason: Pain (Mild 1-3) or Fever Hydrocodone Bitart/Acetaminophen ([place] 325-5 Mg) 1 tab PO Q6H PRN PRN Reason: Pain (moderate 4-6) Aspirin (Halfprin) 81 mg PO DAILY [facility] Diphenhydramine HCl (Benadryl) 25 mg IVPUSH Q4H PRN PRN Reason: Restlessness or Allergies Hydralazine HCl (Apresoline) 10 mg IVPUSH Q6H PRN PRN Reason: Hypertension Ceftriaxone Sodium 1 gm/ (Sodium Chloride) 100 mls @ 200 mls/hr IV Q24H [facility] Last Admin: 03/26/20 21:38 Dose: 200 mls/hr Potassium Chloride/Sodium Chloride (1/2 Ns With 20 Meq Kcl) 1,000 mls @ 75 mls/ hr IV ASDIRECTED [facility] Last Admin: 03/26/20 21:37 Dose: 75 mls/hr Insulin Glargine (Lantus) 24 unit SUBCUT BEDTIME [facility] Last Admin: 03/26/20 21:52 Dose: 24 units Insulin Human Lispro (Humalog) 0 unit SUBCUT QIDACANDBED [facility]; Protocol Last Admin: 03/26/20 21:44 Dose: Not Given Levothyroxine Sodium (Synthroid) 50 mcg PO MoWeFr@0600 [facility] Levothyroxine Sodium (Levothyroxine) 25 mcg PO SuTuThSa@0600 [facility] Metoprolol Succinate (Toprol Xl) 200 mg PO DAILY [facility] Morphine Sulfate (Morphine) 2 mg IVPUSH Q4H PRN PRN Reason: Pain (severe 7-10) Ondansetron HCl (Zofran) 4 mg IVPUSH Q4H PRN PRN Reason: Nausea and Vomiting Pantoprazole Sodium (Protonix Iv) 40 mg IVPUSH DAILY [facility] Polyethylene Glycol (Miralax) 17 gm PO DAILY [facility] Rivaroxaban (Xarelto) 10 mg PO DAILY [facility] Rosuvastatin Calcium (Crestor) 40 mg PO BEDTIME [facility] Senna/Docusate Sodium (Senna Plus) 2 tab PO BID [facility] Last Admin: 03/26/20 21:24 Dose: Not Given Sucralfate (Carafate) 2 gm PO BEDTIME [facility] Last Admin: 03/26/20 21:17 Dose: 2 gm Assessment/Plan Comment:: I have examined the patient independently of HARMEET Hill. I have discussed the case with him. I have reviewed and agree with the plan of care as outlined by him. Please see orders.
[2020-03-26] MEDS ORDERED: Sucralfate 1 GM Tab PO SCH (21:00)
[2020-03-26] MEDS ORDERED: Sodium Chloride 0.45% with KCl 1,000 ML IV SCH (21:30)
[2020-03-26] MEDS: Insulin Lispro 100 Units/ML 3 ML Vial SUBCUT SCH (21:44)
[2020-03-26] MEDS: Insulin Glarg,Human.Rec.Analog 100 Unit/ML SUBCUT SCH (21:52)
[2020-03-27] MEDS: Levothyroxine 50 MCG Tab PO SCH (05:35)
[2020-03-27] MEDS: Insulin Lispro 100 Units/ML 3 ML Vial SUBCUT SCH ×4 (06:34→21:35)
[2020-03-27] MEDS ORDERED: Lactated Ringers 500 ML IV ONE (07:56)
--- NOTE | 2020-03-27 08:08 | PCM.PN ---
- General Info Date of Service: 03/27/20 Admission Dx/Problem (Free Text): Admission Diagnosis/Problem Admission Diagnosis/Problem Pancreatitis - Patient Data Vitals - Most Recent: Last Vital Signs Temp 98.4 F 03/27/20 08:00 Pulse 77 03/27/20 08:00 Resp 18 03/27/20 08:00 BP 90/56 L 03/27/20 08:00 Pulse Ox 92 L 03/27/20 08:00 Weight - Most Recent: 205 lb I&O - Last 24 Hours: Intake & Output 03/26/20 03/27/20 03/27/20 22:59 06:59 14:59 Intake Total 853 Output Total 500 Balance 353 Lab Results Last 24 Hours: Laboratory Results - last 24 hr 03/26/20 03/26/20 03/26/20 Range/Units 15:30 16:45 21:34 WBC (3.98-10.04) K/mm3 RBC (3.98-5.22) M/mm3 Hgb (11.2-15.7) gm/dl Hct (34.1-44.9) % MCV (79.4-94.8) fl MCH (25.6-32.2) pg MCHC (32.2-35.5) g/dl RDW Std Deviation (36.4-46.3) fL Plt Count (182-369) K/mm3 MPV (9.4-12.3) fl Neut % (Auto) (34.0-71.1) % Lymph % (Auto) (19.3-51.7) % [place] % (Auto) (4.7-12.5) % Eos % (Auto) (0.7-5.8) Baso % (Auto) (0.1-1.2) % Neut # (Auto) (1.56-6.13) K/mm3 Lymph # (Auto) (1.18-3.74) K/mm3 [place] # (Auto) (0.24-0.36) K/mm3 Eos # (Auto) (0.04-0.36) K/mm3 Baso # (Auto) (0.01-0.08) K/mm3 Sodium (136-145) mEq/L Potassium (3.5-5.1) mEq/L Chloride (98-107) mEq/L Carbon Dioxide (21-32) mEq/L Anion Gap (5-15) BUN (7-18) mg/dL Creatinine (0.55-1.02) mg/dL Est Cr Clr Drug Dosing mL/min Estimated GFR (MDRD) (>60) mL/min BUN/Creatinine Ratio (14-18) Glucose (83-115) mg/dL POC Glucose 96 (83-110) mg/dL Calcium (8.5-10.1) mg/dL Total Bilirubin (0.2-1.0) mg/dL AST (15-37) U/L ALT (14-59) U/L Alkaline Phosphatase (46-116) U/L Total Protein (6.4-8.2) g/dl Albumin (3.4-5.0) g/dl Globulin gm/dL Albumin/Globulin Ratio (1-2) Triglycerides (<150) mg/dL Cholesterol (<200) mg/dL LDL Cholesterol Direct (<100) mg/dL HDL Cholesterol (40-59) mg/dL Lipase 1180 H (73-393) U/L TSH 3rd Generation (0.358-3.74) uIU/mL Urine Color Light yellow (Yellow) Urine Appearance Clear (Clear) Urine pH 6.0 (5.0-8.0) Ur Specific [place] 1.015 (1.005-1.030) Urine Protein 1+ H (Negative) Urine Glucose (UA) Negative (Negative) Urine Ketones Negative (Negative) Urine Occult Blood 1+ H (Negative) Urine Nitrite Negative (Negative) Urine Bilirubin Negative (Negative) Urine Urobilinogen 0.2 (0.2-1.0) Ur Leukocyte Esterase Negative (Negative) Urine RBC 5-10 H (0-5) /hpf Urine WBC 0-5 (0-5) /hpf Ur Squamous Epith Cells 5-10 H (0-5) /hpf Urine Bacteria Few (FEW) /hpf Urine Mucus Not seen (FEW) /hpf 03/27/20 03/27/20 03/27/20 Range/Units 02:36 05:37 05:46 WBC 7.11 (3.98-10.04) K/mm3 RBC 4.26 (3.98-5.22) M/mm3 Hgb 11.5 (11.2-15.7) gm/dl Hct 36.8 (34.1-44.9) % MCV 86.4 (79.4-94.8) fl MCH 27.0 (25.6-32.2) pg MCHC 31.3 L (32.2-35.5) g/dl RDW Std Deviation 49.7 H (36.4-46.3) fL Plt Count 206 (182-369) K/mm3 MPV 9.9 (9.4-12.3) fl Neut % (Auto) 52.3 (34.0-71.1) % Lymph % (Auto) 35.7 (19.3-51.7) % [place] % (Auto) 10.3 (4.7-12.5) % Eos % (Auto) 1.1 (0.7-5.8) Baso % (Auto) 0.3 (0.1-1.2) % Neut # (Auto) 3.72 (1.56-6.13) K/mm3 Lymph # (Auto) 2.54 (1.18-3.74) K/mm3 [place] # (Auto) 0.73 H (0.24-0.36) K/mm3 Eos # (Auto) 0.08 (0.04-0.36) K/mm3 Baso # (Auto) 0.02 (0.01-0.08) K/mm3 Sodium (136-145) mEq/L Potassium (3.5-5.1) mEq/L Chloride (98-107) mEq/L Carbon Dioxide (21-32) mEq/L Anion Gap (5-15) BUN (7-18) mg/dL Creatinine (0.55-1.02) mg/dL Est Cr Clr Drug Dosing mL/min Estimated GFR (MDRD) (>60) mL/min BUN/Creatinine Ratio (14-18) Glucose (83-115) mg/dL POC Glucose 81 L 79 L (83-110) mg/dL Calcium (8.5-10.1) mg/dL Total Bilirubin (0.2-1.0) mg/dL AST (15-37) U/L ALT (14-59) U/L Alkaline Phosphatase (46-116) U/L Total Protein (6.4-8.2) g/dl Albumin (3.4-5.0) g/dl Globulin gm/dL Albumin/Globulin Ratio (1-2) Triglycerides (<150) mg/dL Cholesterol (<200) mg/dL LDL Cholesterol Direct (<100) mg/dL HDL Cholesterol (40-59) mg/dL Lipase (73-393) U/L TSH 3rd Generation (0.358-3.74) uIU/mL Urine Color (Yellow) Urine Appearance (Clear) Urine pH (5.0-8.0) Ur Specific [place] (1.005-1.030) Urine Protein (Negative) Urine Glucose (UA) (Negative) Urine Ketones (Negative) Urine Occult Blood (Negative) Urine Nitrite (Negative) Urine Bilirubin (Negative) Urine Urobilinogen (0.2-1.0) Ur Leukocyte Esterase (Negative) Urine RBC (0-5) /hpf Urine WBC (0-5) /hpf Ur Squamous Epith Cells (0-5) /hpf Urine Bacteria (FEW) /hpf Urine Mucus (FEW) /hpf 03/27/20 Range/Units 05:46 WBC (3.98-10.04) K/mm3 RBC (3.98-5.22) M/mm3 Hgb (11.2-15.7) gm/dl Hct (34.1-44.9) % MCV (79.4-94.8) fl MCH (25.6-32.2) pg MCHC (32.2-35.5) g/dl RDW Std Deviation (36.4-46.3) fL Plt Count (182-369) K/mm3 MPV (9.4-12.3) fl Neut % (Auto) (34.0-71.1) % Lymph % (Auto) (19.3-51.7) % [place] % (Auto) (4.7-12.5) % Eos % (Auto) (0.7-5.8) Baso % (Auto) (0.1-1.2) % Neut # (Auto) (1.56-6.13) K/mm3 Lymph # (Auto) (1.18-3.74) K/mm3 [place] # (Auto) (0.24-0.36) K/mm3 Eos # (Auto) (0.04-0.36) K/mm3 Baso # (Auto) (0.01-0.08) K/mm3 Sodium 143 (136-145) mEq/L Potassium 3.8 (3.5-5.1) mEq/L Chloride 108 H (98-107) mEq/L Carbon Dioxide 21 (21-32) mEq/L Anion Gap 17.8 H (5-15) BUN 48 H (7-18) mg/dL Creatinine 3.3 H D (0.55-1.02) mg/dL Est Cr Clr Drug Dosing 11.23 mL/min Estimated GFR (MDRD) 14 (>60) mL/min BUN/Creatinine Ratio 14.5 (14-18) Glucose 80 L (83-115) mg/dL POC Glucose (83-110) mg/dL Calcium 7.8 L (8.5-10.1) mg/dL Total Bilirubin 0.6 (0.2-1.0) mg/dL AST 19 (15-37) U/L ALT 24 (14-59) U/L Alkaline Phosphatase 42 L (46-116) U/L Total Protein 6.3 L (6.4-8.2) g/dl Albumin 2.9 L (3.4-5.0) g/dl Globulin 3.4 gm/dL Albumin/Globulin Ratio 0.9 L (1-2) Triglycerides 245 H (<150) mg/dL Cholesterol 120 (<200) mg/dL LDL Cholesterol Direct 60 (<100) mg/dL HDL Cholesterol 29.0 L (40-59) mg/dL Lipase 618 H (73-393) U/L TSH 3rd Generation 1.484 (0.358-3.74) uIU/mL Urine Color (Yellow) Urine Appearance (Clear) Urine pH (5.0-8.0) Ur Specific [place] (1.005-1.030) Urine Protein (Negative) Urine Glucose (UA) (Negative) Urine Ketones (Negative) Urine Occult Blood (Negative) Urine Nitrite (Negative) Urine Bilirubin (Negative) Urine Urobilinogen (0.2-1.0) Ur Leukocyte Esterase (Negative) Urine RBC (0-5) /hpf Urine WBC (0-5) /hpf Ur Squamous Epith Cells (0-5) /hpf Urine Bacteria (FEW) /hpf Urine Mucus (FEW) /hpf Med Orders - Current: Current Medications Acetaminophen (Tylenol) 650 mg PO Q6H PRN PRN Reason: Pain (Mild 1-3) or Fever Last Admin: 05/01/20 05:50 Dose: 650 mg Acetaminophen (Tylenol) 650 mg RECTAL Q6H PRN PRN Reason: Pain (Mild 1-3) or Fever Hydrocodone Bitart/Acetaminophen ([place] 325-5 Mg) 1 tab PO Q6H PRN PRN Reason: Pain (moderate 4-6) Aspirin (Halfprin) 81 mg PO DAILY COUNT INCLUDES THE [facility] Diphenhydramine HCl (Benadryl) 25 mg IVPUSH Q4H PRN PRN Reason: Restlessness or Allergies Hydralazine HCl (Apresoline) 10 mg IVPUSH Q6H PRN PRN Reason: Hypertension Ceftriaxone Sodium 1 gm/ (Sodium Chloride) 100 mls @ 200 mls/hr IV Q24H COUNT INCLUDES THE [facility] Last Admin: 03/26/20 21:38 Dose: 200 mls/hr Lactated Ringer's (Ringers, Lactated) 500 mls @ 999 mls/hr IV .BOLUS ONE Stop: 03/27/20 08:26 Last Admin: 03/27/20 08:05 Dose: 999 mls/hr Lactated Ringer's (Ringers, Lactated) 1,000 mls @ 125 mls/hr IV ASDIRECTED COUNT INCLUDES THE [facility] Insulin Glargine (Lantus) 24 unit SUBCUT BEDTIME COUNT INCLUDES THE [facility] Last Admin: 03/26/20 21:52 Dose: 24 units Insulin Human Lispro (Humalog) 0 unit SUBCUT QIDACANDBED COUNT INCLUDES THE [facility]; Protocol Last Admin: 03/27/20 06:34 Dose: Not Given Levothyroxine Sodium (Synthroid) 50 mcg PO MoWeFr@0600 COUNT INCLUDES THE [facility] Last Admin: 03/27/20 05:35 Dose: 50 mcg Levothyroxine Sodium (Levothyroxine) 25 mcg PO SuTuThSa@0600 COUNT INCLUDES THE [facility] Metoprolol Succinate (Toprol Xl) 200 mg PO DAILY COUNT INCLUDES THE [facility] Morphine Sulfate (Morphine) 2 mg IVPUSH Q4H PRN PRN Reason: Pain (severe 7-10) Ondansetron HCl (Zofran) 4 mg IVPUSH Q4H PRN PRN Reason: Nausea and Vomiting Pantoprazole Sodium (Protonix Iv) 40 mg IVPUSH DAILY COUNT INCLUDES THE [facility] Polyethylene Glycol (Miralax) 17 gm PO DAILY COUNT INCLUDES THE [facility] Rivaroxaban (Xarelto) 10 mg PO DAILY COUNT INCLUDES THE [facility] Rosuvastatin Calcium (Crestor) 40 mg PO BEDTIME MAEGAN Senna/Docusate Sodium (Senna Plus) 2 tab PO BID MAEGAN Last Admin: 03/26/20 21:24 Dose: Not Given Sucralfate (Carafate) 2 gm PO BEDTIME MAEGAN Last Admin: 03/26/20 21:17 Dose: 2 gm Discontinued Medications Al Hydroxide/Mg Hydroxide 30 (ml/ Lidocaine HCl 15 ml) 0 ml PO ONETIME STA Stop: 03/26/20 15:32 Last Admin: 03/26/20 15:53 Dose: 45 ml Sodium Chloride (Normal Saline) 1,000 mls @ 500 mls/hr IV ASDIRECTED MAEGAN Last Admin: 03/26/20 15:27 Dose: 500 mls/hr Potassium Chloride/Dextrose/Sod Cl (D5 1/2 Ns W/ 20 Meq/L Kcl) 1,000 mls @ 75 mls/hr IV ASDIRECTED MAEGAN Potassium Chloride/Sodium Chloride (1/2 Ns With 20 Meq Kcl) 1,000 mls @ 75 mls/ hr IV ASDIRECTED MAEGAN Last Admin: 03/26/20 21:37 Dose: 75 mls/hr Levothyroxine Sodium (Levothyroxine) 50 mcg PO MOWEFR COUNT INCLUDES THE [facility] Levothyroxine Sodium (Levothyroxine) 25 mcg PO SUTUTHSA COUNT INCLUDES THE [facility] Non-Formulary Medication (Metoprolol Succinate [Metoprolol Succinate]) 200 mg PO DAILY COUNT INCLUDES THE [facility] Ondansetron HCl (Zofran) 4 mg IVPUSH ONETIME ONE Stop: 03/26/20 15:03 Last Admin: 03/26/20 15:27 Dose: 4 mg Sepsis Event Note - Evaluation Sepsis Screening Result: No Definite Risk - Focused Exam Vital Signs: Vital Signs Temp Temp Temp Pulse Pulse Resp BP 03/27/20 08:00 98.4 F 77 18 03/27/20 04:00 98.2 F 92 18 03/27/20 02:28 98.1 F 80 18 90/34 L 03/26/20 20:31 97.9 F 83 19 114/70 BP BP Pulse Ox 03/27/20 08:00 90/56 L 92 L 03/27/20 04:00 118/76 92 L 03/27/20 02:28 89 L 03/26/20 20:31 91 L Date Exam was Performed: 03/27/20 Time Exam was Performed: 08:08 - My Orders Last 24 Hours: My Active Orders 03/27/20 08:15 Lactated Ringers @ 125 MLS/HR(1000ml Bag) Lactated Ringers [Ringers, Lactated] 1 ,000 ml IV ASDIRECTED - Plan Plan:: I have examined the patient independently of HARMEET Hill. I have discussed the case with him. I have reviewed and agree with the plan of care as outlined by him. Please see orders.
[2020-03-27] MEDS: Rivaroxaban 10 MG Tab PO SCH (08:15)
[2020-03-27] MEDS ORDERED: Lactated Ringers 1,000 ML IV SCH (08:15)
[2020-03-27] MEDS: Lactated Ringers 1,000 ML IV SCH ×3 (08:42→20:09)
--- NOTE | 2020-03-27 08:42 | CT ---
CT abdomen and pelvis Technique: Multiple axial sections were obtained from above the dome of the diaphragm inferiorly through the pubic symphysis. Intravenous and oral contrast was not utilized. Comparison: Prior CT abdomen and pelvis study of 09/25/15. Findings: Visualized lung bases show nothing acute. Liver contains no focal parenchymal abnormality. Spleen appears within normal limits. Adrenal glands show no nodule. Kidneys show nonobstructing calculi. Ureters show no abnormal calcifications. No bladder calculi are noted. Pancreas appears within normal limits. Surgical clips are noted from prior cholecystectomy. Aorta shows atherosclerotic change without aneurysm. Small fat-containing umbilical hernia is noted. No retroperitoneal adenopathy is seen. No pelvic mass or adenopathy is seen. Soft tissue density seen within the subcutaneous tissues within the abdomen presumably representing change from previous abdominal wall injections. Small fluid collection is identified next to the cecum within the right lower abdomen which measures about 2 cm in size most likely representing a small seroma which is an interval change from prior study. This has a benign appearance at this time. Impression: 1. Nonobstructing calculi within both kidneys. No ureteral dilatation or ureteral stone is seen. 2. 2 cm fluid collection next to the cecum which has a benign appearance and is felt compatible with small seroma which is an interval change from prior exam. 3. Other findings believed to be incidental. Nothing acute is appreciated. Diagnostic code #2 This report was dictated in MDT I agree with preliminary report from [place], finalized on 03/26/20, 8:19 PM Central Daylight Time
[2020-03-27] MEDS ORDERED: Pantoprazole 40 MG Vial IVPUSH SCH (09:00)
[2020-03-27] MEDS ORDERED: Metoprolol Succinate 50 MG Tab.ER PO SCH (09:00)
[2020-03-27] MEDS ORDERED: Polyethylene Glycol 3350 Powder 17 GM Packet PO SCH (09:00)
[2020-03-27] MEDS ORDERED: Aspirin 81 MG Tab.EC PO SCH (09:00)
[2020-03-27] MEDS ORDERED: Non-Formulary Medication 1 Each (Metoprolol Succinate [Metoprolol Succinate] 200 MG) PO SCH (09:00)
[2020-03-27] MEDS ORDERED: Meperidine 50 MG/ML Vial IVPUSH SCH (11:00)
[2020-03-27] MEDS ORDERED: Lactated Ringers 250 ML IV ONE (11:17)
--- NOTE | 2020-03-27 12:46 | PCM.PN ---
- General Info Date of Service: 03/27/20 Subjective Update: Complaining of pain after meal at same intensity of initial pain BM 03/26 - Patient Data Vitals - Most Recent: Last Vital Signs Temp 98.2 F 03/27/20 12:00 Pulse 82 03/27/20 12:30 Resp 16 03/27/20 12:30 BP 95/49 L 03/27/20 12:30 Pulse Ox 97 03/27/20 12:30 Orthostatic Blood Pressure [ 127/79 Sitting] Orthostatic Blood Pressure [ 139/76 Standing] Orthostatic Blood Pressure [ 92/52 Supine] Weight - Most Recent: 92.986 kg - Exam General: Alert, Oriented, Cooperative, Mild Distress, Moderate Distress HEENT: Pupils Equal, Pupils Reactive, Mucous Membr. Moist/[place] Neck: Supple, Trachea Midline. No: Lymphadenopathy Lungs: Decreased Breath Sounds. No: Crackles, Rales, Rhonchi, Rub, Stridor, Wheezing Cardiovascular: Regular Rate, Regular Rhythm. No: Murmurs, Gallops, Rubs GI/Abdominal Exam: Soft, Tender (to minimal palpation), Abnormal Bowel Sounds. No: Guarding, Rigid, Rebound Extremities: Normal Inspection, No Pedal Edema, Normal Capillary Refill Peripheral Pulses: 2+: Radial (L), Radial (R) Neurological: No New Focal Deficit Psy/Mental Status: Alert Sepsis Event Note - Evaluation Sepsis Screening Result: No Definite Risk - Focused Exam Vital Signs: Vital Signs Temp Temp Temp Pulse Pulse Resp BP 03/27/20 12:30 82 16 03/27/20 12:00 98.2 F 86 16 03/27/20 11:31 80 03/27/20 11:00 79 16 03/27/20 09:40 80 16 03/27/20 08:59 80 16 03/27/20 08:30 79 17 03/27/20 08:15 78 16 03/27/20 08:00 98.4 F 77 18 03/27/20 07:27 98.1 F 79 16 03/27/20 05:42 98.2 F 77 18 86/23 L 03/27/20 04:00 98.2 F 92 18 03/27/20 02:28 98.1 F 80 18 90/34 L BP BP Pulse Ox 03/27/20 12:30 95/49 L 97 03/27/20 12:00 110/56 L 97 03/27/20 11:31 93/55 L 03/27/20 11:00 91/50 L 97 03/27/20 09:40 103/57 L 96 03/27/20 08:59 96/51 L 95 03/27/20 08:30 90/52 L 94 L 03/27/20 08:15 87/52 L 93 L 03/27/20 08:00 90/56 L 92 L 03/27/20 07:27 94 L 03/27/20 05:42 92 L 03/27/20 04:00 118/76 92 L 03/27/20 02:28 89 L Date Exam was Performed: 03/28/20 Time Exam was Performed: 07:23 - Problem List & Annotations (1) Acute kidney injury SNOMED Code(s): 59287478, 70542552 Code(s): N17.9 - ACUTE KIDNEY FAILURE, UNSPECIFIED Status: Acute Current Visit: Yes (2) Pancreatitis SNOMED Code(s): 11705239 Code(s): K85.90 - ACUTE PANCREATITIS WITHOUT NECROSIS OR INFECTION, UNSP Status: Acute Current Visit: Yes Qualifiers: Chronicity: acute Pancreatitis type: unspecified pancreatitis type Acute pancreatitis complication: unspecified Qualified Code(s): K85.90 - Acute pancreatitis without necrosis or infection, unspecified (3) Type II diabetes mellitus SNOMED Code(s): 03367045 Code(s): E11.9 - TYPE 2 DIABETES MELLITUS WITHOUT COMPLICATIONS Status: Acute Priority: Medium Current Visit: No Qualifiers: Diabetes mellitus intermediate school teacher insulin use: unspecified intermediate school teacher insulin use status Diabetes mellitus complication status: with unspecified complications (4) Volume depletion SNOMED Code(s): 033066348 Code(s): E86.9 - VOLUME DEPLETION, UNSPECIFIED Status: Acute Current Visit: Yes (5) S/P CABG (coronary artery bypass graft) SNOMED Code(s): 691918034, 981011786, 774242208 Code(s): Z95.1 - PRESENCE OF AORTOCORONARY BYPASS GRAFT Status: Acute Current Visit: Yes (6) Status post cholecystectomy SNOMED Code(s): 263531796, 80720862, 188695791 Code(s): Z90.49 - ACQUIRED ABSENCE OF OTHER SPECIFIED PARTS OF DIGESTIVE TRACT Status: Acute Current Visit: Yes (7) Dyslipidemia SNOMED Code(s): 621247370 Code(s): E78.5 - HYPERLIPIDEMIA, UNSPECIFIED Status: Acute Current Visit : Yes (8) CHF (congestive heart failure) SNOMED Code(s): 11709641 Code(s): I50.9 - HEART FAILURE, UNSPECIFIED Status: Acute Priority: Medium Current Visit: No Qualifiers: Heart failure type: unspecified Heart failure chronicity: chronic Qualified Code(s): I50.9 - Heart failure, unspecified (9) Chronic back pain SNOMED Code(s): 679866069 Code(s): M54.9 - DORSALGIA, UNSPECIFIED; G89.29 - OTHER CHRONIC PAIN Status : Acute Priority: Medium Current Visit: No Qualifiers: Back pain location: back pain in unspecified location Back pain laterality : unspecified Qualified Code(s): M54.9 - Dorsalgia, unspecified; G89.29 - Other chronic pain (10) Coronary artery disease SNOMED Code(s): 78977292 Code(s): I25.10 - ATHSCL HEART DISEASE OF [place] CORONARY ARTERY W/O ANG PCTRS Status: Acute Priority: Low Current Visit: No Qualifiers: Coronary Disease-Associated Artery/Lesion type: unspecified vessel or lesion type [place] vs. transplanted heart: [place] heart Associated angina: without angina Qualified Code(s): I25.10 - Atherosclerotic heart disease of [place] coronary artery without angina pectoris (11) Hypertension SNOMED Code(s): 29362979 Code(s): I10 - ESSENTIAL (PRIMARY) HYPERTENSION Status: Acute Priority: Medium Current Visit: No Qualifiers: Hypertension type: unspecified Qualified Code(s): I10 - Essential (primary ) hypertension (12) Hypothyroidism SNOMED Code(s): 30569489 Code(s): E03.9 - HYPOTHYROIDISM, UNSPECIFIED Status: Acute Priority: Medium Current Visit: No Qualifiers: Hypothyroidism type: unspecified Qualified Code(s): E03.9 - Hypothyroidism , unspecified (13) AICD (automatic cardioverter/defibrillator) present SNOMED Code(s): 714665069, 686330897 Code(s): Z95.810 - PRESENCE OF AUTOMATIC (IMPLANTABLE) CARDIAC DEFIBRILLATOR Status: Acute Current Visit: Yes (14) Ex-smoker for more than 1 year SNOMED Code(s): 29242127581827 Code(s): Z87.891 - PERSONAL HISTORY OF NICOTINE DEPENDENCE Status: Acute Current Visit: Yes (15) Cerebrovascular disease SNOMED Code(s): 99082672 Code(s): I67.9 - CEREBROVASCULAR DISEASE, UNSPECIFIED Status: Acute Priority: Low Current Visit: No (16) Gout SNOMED Code(s): 56361415 Code(s): M10.9 - GOUT, UNSPECIFIED Status: Acute Priority: Low Current Visit: No Qualifiers: Gout site: unspecified site Gout etiology: unspecified cause Chronicity: unspecified Qualified Code(s): M10.9 - Gout, unspecified - Problem List Review Problem List Initiated/Reviewed/Updated: Yes - Plan Plan:: ASSESSMENT Admission - Went to PCP's clinic for abdominal pain, diarrhea, nausea and vomiting - Labs were drawn, compared to 2 months ago - Creatinine up from 1.5--> 4.32 - A1c up from 7.9 --> 9.6 - Abdominal x ray with nonspecific bowel gas pattern - Recommended to get CT abdomen but patient refused and decided to come to the ED - BP 93/57 Day 1 - Diet was advanced to clears but patient started complaining of severe abdominal pain at same level than prior to admission - Abdominal CT was done, pending report - On IVF - Adequate urine output - Dropped her BP this morning to 86/23 --> lactic acid negative --> 500mL bolus ordered - Afebrile, HR controlled PLAN BY PROBLEM Pancreatitis, unknown etiology Acute kidney injury 2/2 volume depletion Status post cholecystectomy - Strict NPO - Pain control with morphine, unable to use meperidine due to GFR - Continue IVF with LR - Strict I/O quantification - Repeat BMP every 6 hours - Monitor urine output - Triglyceride level - Evaluate home meds to rule out etiology of pancreatitis CHF (congestive heart failure) AICD (automatic cardioverter/defibrillator) present Coronary artery disease S/P CABG Dyslipidemia - Interrogate AICD - Gentle IVF repletion - Hold home BP meds and diuretics (lisinopril, metoprolol, furosemide) - Monitor volume status - New echocardiogram - Request records for prior Echocardiogram Type II diabetes mellitus - Hold home medications until PO - Novolog 34u TID AC - Bydureon 2mg once a week - Lantus 72u bedtime - Glucose check every 6 hours - Hypoglycemia protocol Hypertension - Trend BP - Continue to hold home medications PROPHYLAXIS DVT- Xarelto GI- not indicated CODE STATUS: FULL CODE DISPOSITION: Patient will remain hospitalized for monitorization of pancreatitis with supportive treatment and pain control. LOS likely greater than 48 hours.
[2020-03-27] MEDS ORDERED: Morphine 2 MG/ML Syringe IVPUSH PRN (14:59)
[2020-03-27] MEDS ORDERED: Norepinephrine 4 MG in Dextrose 5% in Water 246 ML IV SCH ×2 (15:00)
--- NOTE | 2020-03-27 15:08 | CR ---
Chest: Portable view of the chest was obtained. Comparison: Prior chest x-ray of 01/22/18. Heart size and mediastinum are within normal limits for portable technique. AICD is present. Previous sternotomy is noted. Right jugular line is seen with tip lying within the area of the superior vena cava. Lungs are clear with no acute infiltrates. Surgical clips are seen from prior cholecystectomy. Impression: 1. Right jugular line with tip in the area of the superior vena cava. No pneumothorax is seen. 2. Other findings as noted above. Nothing acute is seen. Diagnostic code #2 This report was dictated in MDT
[2020-03-27] MEDS ORDERED: Levothyroxine 25 MCG Tab PO SCH ×2 (19:45)
[2020-03-27] MEDS: Rosuvastatin 10 MG Tab PO SCH (20:01)
[2020-03-27] MEDS: Insulin Glarg,Human.Rec.Analog 100 Unit/ML SUBCUT SCH (20:08)
[2020-03-28] MEDS: Lactated Ringers 1,000 ML IV SCH ×3 (04:16→23:09)
[2020-03-28] MEDS: Insulin Lispro 100 Units/ML 3 ML Vial SUBCUT SCH ×4 (06:11→21:03)
[2020-03-28] MEDS: Levothyroxine 25 MCG Tab PO SCH (06:11)
--- NOTE | 2020-03-28 08:03 | PCM.PN ---
- General Info Date of Service: 03/28/20 Subjective Update: Feeling OK Slept OK No more pain Up to chair - Patient Data Vitals - Most Recent: Last Vital Signs Temp 97.1 F 03/28/20 06:00 Pulse 88 03/28/20 06:00 Resp 12 03/28/20 06:00 BP 119/62 03/28/20 06:00 Pulse Ox 100 03/28/20 06:00 Weight - Most Recent: 92.986 kg - Exam Quality Assessment: Central Line/PICC, DVT Prophylaxis General: Alert, Oriented, Cooperative, No Acute Distress HEENT: Pupils Equal, Pupils Reactive, EOMI, Mucous Membr. Moist/Gross Neck: Supple, Trachea Midline, +2 Carotid Pulse wo Bruit. No: Lymphadenopathy Lungs: Clear to Auscultation, Normal Respiratory Effort. No: Crackles, Rales, Rhonchi, Rub, Stridor, Wheezing Cardiovascular: Regular Rate, Regular Rhythm. No: Murmurs, Gallops, Rubs GI/Abdominal Exam: Soft, Non-Tender, Distended, Abnormal Bowel Sounds ( decreased frequency), Other (soreness). No: Guarding, Rigid, Rebound Extremities: Normal Inspection, Normal Capillary Refill, Pedal Edema Skin: Warm, Dry Neurological: No New Focal Deficit Psy/Mental Status: Alert, Normal Affect Sepsis Event Note - Evaluation Sepsis Screening Result: No Definite Risk - Focused Exam Vital Signs: Vital Signs Temp Pulse Resp BP BP BP Pulse Ox 03/28/20 06:00 97.1 F 88 12 119/62 100 03/28/20 05:27 88 118/45 L 03/28/20 03:58 97.7 F 95 13 156/90 H 94 L 03/28/20 02:00 98.0 F 14 165/91 H 95 03/28/20 00:00 97.0 F 80 14 108/45 L 94 L 03/27/20 22:00 80 14 119/58 L 100 03/27/20 21:10 80 103/47 L Date Exam was Performed: 03/28/20 Time Exam was Performed: 19:03 - Problem List & Annotations (1) Acute kidney injury SNOMED Code(s): 22667438, 69332147 Code(s): N17.9 - ACUTE KIDNEY FAILURE, UNSPECIFIED Status: Acute Current Visit: Yes (2) Pancreatitis SNOMED Code(s): 79136391 Code(s): K85.90 - ACUTE PANCREATITIS WITHOUT NECROSIS OR INFECTION, UNSP Status: Acute Current Visit: Yes Qualifiers: Chronicity: acute Pancreatitis type: unspecified pancreatitis type Acute pancreatitis complication: unspecified Qualified Code(s): K85.90 - Acute pancreatitis without necrosis or infection, unspecified (3) Type II diabetes mellitus SNOMED Code(s): 07643234 Code(s): E11.9 - TYPE 2 DIABETES MELLITUS WITHOUT COMPLICATIONS Status: Acute Priority: Medium Current Visit: No Qualifiers: Diabetes mellitus halfway insulin use: unspecified long term care social worker insulin use status Diabetes mellitus complication status: with unspecified complications (4) Volume depletion SNOMED Code(s): 237965412 Code(s): E86.9 - VOLUME DEPLETION, UNSPECIFIED Status: Acute Current Visit: Yes (5) S/P CABG (coronary artery bypass graft) SNOMED Code(s): 974436564, 128188127, 365706959 Code(s): Z95.1 - PRESENCE OF AORTOCORONARY BYPASS GRAFT Status: Acute Current Visit: Yes (6) Status post cholecystectomy SNOMED Code(s): 610165048, 21999141, 450057793 Code(s): Z90.49 - ACQUIRED ABSENCE OF OTHER SPECIFIED PARTS OF DIGESTIVE TRACT Status: Acute Current Visit: Yes (7) Dyslipidemia SNOMED Code(s): 904579759 Code(s): E78.5 - HYPERLIPIDEMIA, UNSPECIFIED Status: Acute Current Visit : Yes (8) CHF (congestive heart failure) SNOMED Code(s): 89246714 Code(s): I50.9 - HEART FAILURE, UNSPECIFIED Status: Acute Priority: Medium Current Visit: No Qualifiers: Heart failure type: unspecified Heart failure chronicity: chronic Qualified Code(s): I50.9 - Heart failure, unspecified (9) Chronic back pain SNOMED Code(s): 097275058 Code(s): M54.9 - DORSALGIA, UNSPECIFIED; G89.29 - OTHER CHRONIC PAIN Status : Acute Priority: Medium Current Visit: No Qualifiers: Back pain location: back pain in unspecified location Back pain laterality : unspecified Qualified Code(s): M54.9 - Dorsalgia, unspecified; G89.29 - Other chronic pain (10) Coronary artery disease SNOMED Code(s): 80983846 Code(s): I25.10 - ATHSCL HEART DISEASE OF [place] CORONARY ARTERY W/O ANG PCTRS Status: Acute Priority: Low Current Visit: No Qualifiers: Coronary Disease-Associated Artery/Lesion type: unspecified vessel or lesion type [place] vs. transplanted heart: [place] heart Associated angina: without angina Qualified Code(s): I25.10 - Atherosclerotic heart disease of [place] coronary artery without angina pectoris (11) Hypertension SNOMED Code(s): 67271063 Code(s): I10 - ESSENTIAL (PRIMARY) HYPERTENSION Status: Acute Priority: Medium Current Visit: No Qualifiers: Hypertension type: unspecified Qualified Code(s): I10 - Essential (primary ) hypertension (12) Hypothyroidism SNOMED Code(s): 16415674 Code(s): E03.9 - HYPOTHYROIDISM, UNSPECIFIED Status: Acute Priority: Medium Current Visit: No Qualifiers: Hypothyroidism type: unspecified Qualified Code(s): E03.9 - Hypothyroidism , unspecified (13) AICD (automatic cardioverter/defibrillator) present SNOMED Code(s): 810379258, 248599303 Code(s): Z95.810 - PRESENCE OF AUTOMATIC (IMPLANTABLE) CARDIAC DEFIBRILLATOR Status: Acute Current Visit: Yes (14) Ex-smoker for more than 1 year SNOMED Code(s): 57907750975853 Code(s): Z87.891 - PERSONAL HISTORY OF NICOTINE DEPENDENCE Status: Acute Current Visit: Yes (15) Cerebrovascular disease SNOMED Code(s): 89163085 Code(s): I67.9 - CEREBROVASCULAR DISEASE, UNSPECIFIED Status: Acute Priority: Low Current Visit: No (16) Gout SNOMED Code(s): 48577808 Code(s): M10.9 - GOUT, UNSPECIFIED Status: Acute Priority: Low Current Visit: No Qualifiers: Gout site: unspecified site Gout etiology: unspecified cause Chronicity: unspecified Qualified Code(s): M10.9 - Gout, unspecified - Problem List Review Problem List Initiated/Reviewed/Updated: Yes - Plan Plan:: ASSESSMENT Admission - Went to PCP's clinic for abdominal pain, diarrhea, nausea and vomiting - Labs were drawn, compared to 2 months ago - Creatinine up from 1.5--> 4.32 - A1c up from 7.9 --> 9.6 - Abdominal x ray with nonspecific bowel gas pattern - Recommended to get CT abdomen but patient refused and decided to come to the ED - BP 93/57 Day 1 - Diet was advanced to clears but patient started complaining of severe abdominal pain at same level than prior to admission - Abdominal CT was done, pending report - On IVF - Adequate urine output - Dropped her BP this morning to 86/23 --> lactic acid negative --> 500mL bolus ordered - Afebrile, HR controlled - BP continued to drop --> transferred to ICU and placed central line Day 2 - BP trend 88-126 - Triglycerides 244, unlikely to be etiology - HR 77-92 - Tmax 98.2 - Sat > 92% on RA - CT abdomen with cystic intraabdominal lesion but normal pancreas - GFR up from 11.2 on admission to 16.8 this morning - Glucose trend 79-114 - UO > 125ml/hr every 2 hours since 3PM 03/27 - Only class Ia medication for pancreatitis is furosemide - Class III Lisinopril and Metformin - Class IV Rosuvastatin - AICD interrogation within normal limits - 8.9 year longevity - <0.1% terminated atrial tachycardias PLAN BY PROBLEM Pancreatitis, unknown etiology Acute kidney injury 2/2 volume depletion, minimal improvement Status post cholecystectomy - Start clear liquid diet - Pain control with morphine, unable to use meperidine due to GFR - Continue IVF with LR - Strict I/O quantification - Repeat BMP every day - Monitor urine output CHF (congestive heart failure) AICD (automatic cardioverter/defibrillator) present Coronary artery disease S/P CABG Dyslipidemia - Gentle IVF repletion - Hold home BP meds and diuretics (lisinopril, metoprolol, furosemide) - Monitor volume status - New echocardiogram, pending - Request records for prior Echocardiogram Type II diabetes mellitus - Continue to hold home medications until PO - Novolog 34u TID AC - Bydureon 2mg once a week - Lantus 72u bedtime - Glucose check every 6 hours - Hypoglycemia protocol Hypotension in the setting of prior hypertension diagnosis - Trend BP - Continue to hold home medications PROPHYLAXIS DVT- Xarelto GI- not indicated CODE STATUS: FULL CODE DISPOSITION: Admitted for pancreatitis to medical floor then became refractory hypotensive for which she was transferred to ICU for vasopressors. Patient will remain hospitalized for monitorization of pancreatitis with supportive treatment and pain control. LOS likely greater than 48 hours.
--- NOTE | 2020-03-28 08:03 | PCM.PRNOTE ---
- Free Text/Narrative Note: Central Line Placement Date: 03/27/20 Time: 14:14 Indication: Caustic IV medication needed Attending: Yuli Silver MD A time-out was completed verifying correct patient, procedure, site, positioning , and special equipment if applicable. The patient was placed in a dependent position appropriate for central line placement based on the vein to be cannulated. The patients right neck was prepped and draped in sterile fashion. 1% Lidocaine was used to anesthetize the surrounding skin area. A triple lumen 7-[place] Cordis catheter was introduced into the the internal jugular using the Seldinger technique and under ultrasound guidance. The catheter was threaded smoothly over the guide wire and appropriate blood return was obtained. Each lumen of the catheter was evacuated of air and flushed with sterile saline. The catheter was then sutured in place to the skin and a sterile dressing applied. Perfusion to the extremity distal to the point of catheter insertion was checked and found to be adequate. Estimated Blood Loss: 10mL The patient tolerated the procedure well and there were no complications.
[2020-03-28] MEDS: Rivaroxaban 10 MG Tab PO SCH (09:38)
[2020-03-28] MEDS: Insulin Glarg,Human.Rec.Analog 100 Unit/ML SUBCUT SCH (20:11)
[2020-03-28] MEDS: Rosuvastatin 10 MG Tab PO SCH (20:11)
[2020-03-29] MEDS: Levothyroxine 25 MCG Tab PO SCH (05:14)
[2020-03-29] MEDS: Insulin Lispro 100 Units/ML 3 ML Vial SUBCUT SCH ×4 (05:59→21:02)
[2020-03-29] MEDS: Rivaroxaban 10 MG Tab PO SCH (08:48)
[2020-03-29] MEDS: Lactated Ringers 1,000 ML IV SCH ×2 (08:48→17:41)
--- NOTE | 2020-03-29 11:06 | PCM.PN ---
- General Info Date of Service: 03/29/20 Subjective Update: Didn't sleep well, she was unable to get comfortable Passing gas Tolerated full liquid diet Ambulating in room - Patient Data Vitals - Most Recent: Last Vital Signs Temp 98.1 F 03/29/20 08:00 Pulse 86 03/29/20 06:00 Resp 19 03/29/20 10:00 BP 127/68 03/29/20 10:00 Pulse Ox 97 03/29/20 10:00 Orthostatic Blood Pressure [ 127/79 Sitting] Orthostatic Blood Pressure [ 139/76 Standing] Orthostatic Blood Pressure [ 92/52 Supine] Weight - Most Recent: 93.667 kg - Exam General: Alert, Oriented, Cooperative, No Acute Distress HEENT: Pupils Equal, Pupils Reactive, EOMI, Mucous Membr. Moist/[place] Neck: Supple. No: Lymphadenopathy Lungs: Clear to Auscultation, Normal Respiratory Effort. No: Crackles, Rales, Rhonchi, Rub, Stridor, Wheezing Cardiovascular: Regular Rate, Regular Rhythm. No: Murmurs, Gallops, Rubs GI/Abdominal Exam: Normal Bowel Sounds, Soft, Non-Tender, Distended, Abnormal Bowel Sounds (decreased frequency) Extremities: Normal Inspection, Pedal Edema Skin: Warm, Dry Neurological: No New Focal Deficit Psy/Mental Status: Alert Sepsis Event Note - Evaluation Sepsis Screening Result: No Definite Risk - Focused Exam Vital Signs: Vital Signs Temp Pulse Resp BP BP Pulse Ox 03/29/20 10:00 19 127/68 97 03/29/20 08:00 98.1 F 17 104/55 L 95 03/29/20 06:00 86 145/55 H 03/29/20 04:00 96.9 F 76 15 130/65 92 L 03/29/20 02:00 84 128/64 03/29/20 00:00 97.0 F 82 17 136/71 95 Date Exam was Performed: 03/29/20 Time Exam was Performed: 11:00 - Problem List & Annotations (1) Acute kidney injury SNOMED Code(s): 54045671, 60763498 Code(s): N17.9 - ACUTE KIDNEY FAILURE, UNSPECIFIED Status: Acute Current Visit: Yes (2) Pancreatitis SNOMED Code(s): 47511758 Code(s): K85.90 - ACUTE PANCREATITIS WITHOUT NECROSIS OR INFECTION, UNSP Status: Acute Current Visit: Yes Qualifiers: Chronicity: acute Pancreatitis type: unspecified pancreatitis type Acute pancreatitis complication: unspecified Qualified Code(s): K85.90 - Acute pancreatitis without necrosis or infection, unspecified (3) Type II diabetes mellitus SNOMED Code(s): 12104877 Code(s): E11.9 - TYPE 2 DIABETES MELLITUS WITHOUT COMPLICATIONS Status: Acute Priority: Medium Current Visit: No Qualifiers: Diabetes mellitus intermediate project manager insulin use: unspecified intermediate project manager insulin use status Diabetes mellitus complication status: with unspecified complications (4) Volume depletion SNOMED Code(s): 759271745 Code(s): E86.9 - VOLUME DEPLETION, UNSPECIFIED Status: Acute Current Visit: Yes (5) S/P CABG (coronary artery bypass graft) SNOMED Code(s): 132094845, 439427854, 849399904 Code(s): Z95.1 - PRESENCE OF AORTOCORONARY BYPASS GRAFT Status: Acute Current Visit: Yes (6) Status post cholecystectomy SNOMED Code(s): 096784730, 28357665, 736564245 Code(s): Z90.49 - ACQUIRED ABSENCE OF OTHER SPECIFIED PARTS OF DIGESTIVE TRACT Status: Acute Current Visit: Yes (7) Dyslipidemia SNOMED Code(s): 132103402 Code(s): E78.5 - HYPERLIPIDEMIA, UNSPECIFIED Status: Acute Current Visit : Yes (8) CHF (congestive heart failure) SNOMED Code(s): 93507692 Code(s): I50.9 - HEART FAILURE, UNSPECIFIED Status: Acute Priority: Medium Current Visit: No Qualifiers: Heart failure type: unspecified Heart failure chronicity: chronic Qualified Code(s): I50.9 - Heart failure, unspecified (9) Chronic back pain SNOMED Code(s): 216869399 Code(s): M54.9 - DORSALGIA, UNSPECIFIED; G89.29 - OTHER CHRONIC PAIN Status : Acute Priority: Medium Current Visit: No Qualifiers: Back pain location: back pain in unspecified location Back pain laterality : unspecified Qualified Code(s): M54.9 - Dorsalgia, unspecified; G89.29 - Other chronic pain (10) Coronary artery disease SNOMED Code(s): 71085885 Code(s): I25.10 - ATHSCL HEART DISEASE OF [place] CORONARY ARTERY W/O ANG PCTRS Status: Acute Priority: Low Current Visit: No Qualifiers: Coronary Disease-Associated Artery/Lesion type: unspecified vessel or lesion type [place] vs. transplanted heart: [place] heart Associated angina: without angina Qualified Code(s): I25.10 - Atherosclerotic heart disease of [place] coronary artery without angina pectoris (11) Hypertension SNOMED Code(s): 87349125 Code(s): I10 - ESSENTIAL (PRIMARY) HYPERTENSION Status: Acute Priority: Medium Current Visit: No Qualifiers: Hypertension type: unspecified Qualified Code(s): I10 - Essential (primary ) hypertension (12) Hypothyroidism SNOMED Code(s): 67234671 Code(s): E03.9 - HYPOTHYROIDISM, UNSPECIFIED Status: Acute Priority: Medium Current Visit: No Qualifiers: Hypothyroidism type: unspecified Qualified Code(s): E03.9 - Hypothyroidism , unspecified (13) AICD (automatic cardioverter/defibrillator) present SNOMED Code(s): 337231175, 555060756 Code(s): Z95.810 - PRESENCE OF AUTOMATIC (IMPLANTABLE) CARDIAC DEFIBRILLATOR Status: Acute Current Visit: Yes (14) Ex-smoker for more than 1 year SNOMED Code(s): 76995774866006 Code(s): Z87.891 - PERSONAL HISTORY OF NICOTINE DEPENDENCE Status: Acute Current Visit: Yes (15) Cerebrovascular disease SNOMED Code(s): 69858335 Code(s): I67.9 - CEREBROVASCULAR DISEASE, UNSPECIFIED Status: Acute Priority: Low Current Visit: No (16) Gout SNOMED Code(s): 66329821 Code(s): M10.9 - GOUT, UNSPECIFIED Status: Acute Priority: Low Current Visit: No Qualifiers: Gout site: unspecified site Gout etiology: unspecified cause Chronicity: unspecified Qualified Code(s): M10.9 - Gout, unspecified (17) Hypomagnesemia SNOMED Code(s): 082583189 Code(s): E83.42 - HYPOMAGNESEMIA Status: Acute Current Visit: Yes (18) Hypokalemia SNOMED Code(s): 09253253 Code(s): E87.6 - HYPOKALEMIA Status: Acute Current Visit: Yes - Problem List Review Problem List Initiated/Reviewed/Updated: Yes - Plan Plan:: ASSESSMENT Admission - Went to PCP's clinic for abdominal pain, diarrhea, nausea and vomiting - Labs were drawn, compared to 2 months ago - Creatinine up from 1.5--> 4.32 - A1c up from 7.9 --> 9.6 - Abdominal x ray with nonspecific bowel gas pattern - Recommended to get CT abdomen but patient refused and decided to come to the ED - BP 93/57 Day 1 - Diet was advanced to clears but patient started complaining of severe abdominal pain at same level than prior to admission - Abdominal CT was done, pending report - On IVF - Adequate urine output - Dropped her BP this morning to 86/23 --> lactic acid negative --> 500mL bolus ordered - Afebrile, HR controlled - BP continued to drop --> transferred to ICU and placed central line Day 2 - BP trend 88-126 - Triglycerides 244, unlikely to be etiology - HR 77-92 - Tmax 98.2 - Sat > 92% on RA - CT abdomen with cystic intraabdominal lesion but normal pancreas - GFR up from 11.2 on admission to 16.8 this morning - Glucose trend 79-114 - UO > 125ml/hr every 2 hours since 3PM 03/27 - Only class Ia medication for pancreatitis is furosemide - Class III Lisinopril and Metformin - Class IV Rosuvastatin - AICD interrogation within normal limits - 8.9 year longevity - <0.1% terminated atrial tachycardias Day 3 - BP trend 120-140/45-74 - HR trend 80-95x' - Afebrile - K dropped to 3.2 - Mg dropped to 1.2 - GFR improved from 14 on admission to 32 today - No more pain, has not requested pain meds in over 24 hours - Adequate urine output, 2049/24hrs - Balance : -373 - Passing gas but no BM yet - No pain with diet PLAN BY PROBLEM Pancreatitis, unknown etiology Acute kidney injury 2/2 volume depletion, minimal improvement Status post cholecystectomy - Advance to bland - Pain control with morphine - Stop IVF - Strict I/O quantification - Repeat BMP every day - Monitor urine output Hypokalemia Hypomagnesemia - Replace with 40mEq of KCl and 4g MgSO4 CHF (congestive heart failure) AICD (automatic cardioverter/defibrillator) present Coronary artery disease S/P CABG Dyslipidemia - Hold home BP meds and diuretics (lisinopril, metoprolol, furosemide) - Monitor volume status - New echocardiogram, pending Type II diabetes mellitus - Continue home medications until PO - Novolog 34u TID AC - Lantus 72u bedtime - Glucose check before meals and bedtime - Hypoglycemia protocol Hypertension - Trend BP - Continue to hold home medications Hypotension, resolved PROPHYLAXIS DVT- Xarelto GI- not indicated CODE STATUS: FULL CODE DISPOSITION: Admitted for pancreatitis to medical floor then became refractory hypotensive for which she was transferred to ICU for vasopressors. Transfer out of ICU today Patient will remain hospitalized for monitorization of pancreatitis with supportive treatment and pain control. LOS likely greater than 48 hours.
[2020-03-29] MEDS ORDERED: Magnesium Sulfate/Water 4 GM in Premix Bag 1 BAG IV ONE (11:21)
[2020-03-29] MEDS: Potassium Chloride 10 MEQ in Premix Bag 1 BAG IV SCH ×4 (11:47→15:02)
[2020-03-29] MEDS: Rosuvastatin 10 MG Tab PO SCH (20:34)
[2020-03-29] MEDS: Insulin Glarg,Human.Rec.Analog 100 Unit/ML SUBCUT SCH (20:35)
[2020-03-30] MEDS: Lactated Ringers 1,000 ML IV SCH (03:42)
[2020-03-30] MEDS: Levothyroxine 50 MCG Tab PO SCH (06:11)
[2020-03-30] MEDS: Insulin Lispro 100 Units/ML 3 ML Vial SUBCUT SCH ×5 (06:16→21:12)
[2020-03-30] MEDS: Magnesium Sulfate/Water 4 GM in Premix Bag 1 BAG IV SCH ×2 (08:51→14:05)
[2020-03-30] MEDS: Potassium Chloride 10 MEQ in Premix Bag 1 BAG IV SCH ×4 (08:51→12:02)
[2020-03-30] MEDS: Rivaroxaban 10 MG Tab PO SCH (08:53)
[2020-03-30] MEDS ORDERED: Potassium Phosphates 30 MMOLE in Sodium Chloride 0.9% 500 ML IV ONE (09:30)
--- NOTE | 2020-03-30 09:52 | PCM.PN ---
- General Info Date of Service: 03/30/20 Subjective Update: BM yesterday Tolerating diet Has not had any more pain Slept OK Ambulating fine - Patient Data Vitals - Most Recent: Last Vital Signs Temp 98.8 F 03/30/20 03:53 Pulse 86 03/29/20 06:00 Resp 17 03/30/20 03:53 BP 105/59 L 03/30/20 03:53 Pulse Ox 93 L 03/30/20 03:53 Weight - Most Recent: 97.1 kg - Exam General: Alert, Oriented, Cooperative, No Acute Distress HEENT: Pupils Equal, Pupils Reactive, Mucous Membr. Moist/[place] Neck: Supple, Trachea Midline. No: Lymphadenopathy Lungs: Clear to Auscultation, Normal Respiratory Effort. No: Crackles, Rales, Rhonchi, Rub, Stridor, Wheezing Cardiovascular: Regular Rate, Regular Rhythm. No: Murmurs, Gallops, Rubs GI/Abdominal Exam: Distended. No: Guarding, Rigid, Rebound, Tender Extremities: Normal Inspection, Pedal Edema Neurological: No New Focal Deficit Psy/Mental Status: Alert, Normal Affect, Normal Mood Sepsis Event Note - Evaluation Sepsis Screening Result: No Definite Risk - Focused Exam Vital Signs: Vital Signs Temp Resp BP Pulse Ox 03/30/20 03:53 98.8 F 17 105/59 L 93 L Date Exam was Performed: 03/30/20 Time Exam was Performed: 15:24 - Problem List & Annotations (1) Acute kidney injury SNOMED Code(s): 71564793, 44553108 Code(s): N17.9 - ACUTE KIDNEY FAILURE, UNSPECIFIED Status: Acute Current Visit: Yes (2) Pancreatitis SNOMED Code(s): 99232372 Code(s): K85.90 - ACUTE PANCREATITIS WITHOUT NECROSIS OR INFECTION, UNSP Status: Acute Current Visit: Yes Qualifiers: Chronicity: acute Pancreatitis type: unspecified pancreatitis type Acute pancreatitis complication: unspecified Qualified Code(s): K85.90 - Acute pancreatitis without necrosis or infection, unspecified (3) Type II diabetes mellitus SNOMED Code(s): 64064720 Code(s): E11.9 - TYPE 2 DIABETES MELLITUS WITHOUT COMPLICATIONS Status: Acute Priority: Medium Current Visit: No Qualifiers: Diabetes mellitus snf insulin use: unspecified construction inspector insulin use status Diabetes mellitus complication status: with unspecified complications (4) Volume depletion SNOMED Code(s): 735089921 Code(s): E86.9 - VOLUME DEPLETION, UNSPECIFIED Status: Acute Current Visit: Yes (5) S/P CABG (coronary artery bypass graft) SNOMED Code(s): 904876628, 963726936, 649613988 Code(s): Z95.1 - PRESENCE OF AORTOCORONARY BYPASS GRAFT Status: Acute Current Visit: Yes (6) Status post cholecystectomy SNOMED Code(s): 405328809, 16828108, 766821837 Code(s): Z90.49 - ACQUIRED ABSENCE OF OTHER SPECIFIED PARTS OF DIGESTIVE TRACT Status: Acute Current Visit: Yes (7) Dyslipidemia SNOMED Code(s): 195004370 Code(s): E78.5 - HYPERLIPIDEMIA, UNSPECIFIED Status: Acute Current Visit : Yes (8) CHF (congestive heart failure) SNOMED Code(s): 22926566 Code(s): I50.9 - HEART FAILURE, UNSPECIFIED Status: Acute Priority: Medium Current Visit: No Qualifiers: Heart failure type: unspecified Heart failure chronicity: chronic Qualified Code(s): I50.9 - Heart failure, unspecified (9) Chronic back pain SNOMED Code(s): 367590300 Code(s): M54.9 - DORSALGIA, UNSPECIFIED; G89.29 - OTHER CHRONIC PAIN Status : Acute Priority: Medium Current Visit: No Qualifiers: Back pain location: back pain in unspecified location Back pain laterality : unspecified Qualified Code(s): M54.9 - Dorsalgia, unspecified; G89.29 - Other chronic pain (10) Coronary artery disease SNOMED Code(s): 92141654 Code(s): I25.10 - ATHSCL HEART DISEASE OF [place] CORONARY ARTERY W/O ANG PCTRS Status: Acute Priority: Low Current Visit: No Qualifiers: Coronary Disease-Associated Artery/Lesion type: unspecified vessel or lesion type [place] vs. transplanted heart: [place] heart Associated angina: without angina Qualified Code(s): I25.10 - Atherosclerotic heart disease of [place] coronary artery without angina pectoris (11) Hypertension SNOMED Code(s): 47977395 Code(s): I10 - ESSENTIAL (PRIMARY) HYPERTENSION Status: Acute Priority: Medium Current Visit: No Qualifiers: Hypertension type: unspecified Qualified Code(s): I10 - Essential (primary ) hypertension (12) Hypothyroidism SNOMED Code(s): 65561454 Code(s): E03.9 - HYPOTHYROIDISM, UNSPECIFIED Status: Acute Priority: Medium Current Visit: No Qualifiers: Hypothyroidism type: unspecified Qualified Code(s): E03.9 - Hypothyroidism , unspecified (13) AICD (automatic cardioverter/defibrillator) present SNOMED Code(s): 786762754, 295370343 Code(s): Z95.810 - PRESENCE OF AUTOMATIC (IMPLANTABLE) CARDIAC DEFIBRILLATOR Status: Acute Current Visit: Yes (14) Ex-smoker for more than 1 year SNOMED Code(s): 25439439061781 Code(s): Z87.891 - PERSONAL HISTORY OF NICOTINE DEPENDENCE Status: Acute Current Visit: Yes (15) Cerebrovascular disease SNOMED Code(s): 63891899 Code(s): I67.9 - CEREBROVASCULAR DISEASE, UNSPECIFIED Status: Acute Priority: Low Current Visit: No (16) Gout SNOMED Code(s): 85411310 Code(s): M10.9 - GOUT, UNSPECIFIED Status: Acute Priority: Low Current Visit: No Qualifiers: Gout site: unspecified site Gout etiology: unspecified cause Chronicity: unspecified Qualified Code(s): M10.9 - Gout, unspecified (17) Hypomagnesemia SNOMED Code(s): 633810732 Code(s): E83.42 - HYPOMAGNESEMIA Status: Acute Current Visit: Yes (18) Hypokalemia SNOMED Code(s): 58031898 Code(s): E87.6 - HYPOKALEMIA Status: Acute Current Visit: Yes - Problem List Review Problem List Initiated/Reviewed/Updated: Yes - Plan Plan:: ASSESSMENT Admission - Went to PCP's clinic for abdominal pain, diarrhea, nausea and vomiting - Labs were drawn, compared to 2 months ago - Creatinine up from 1.5--> 4.32 - A1c up from 7.9 --> 9.6 - Abdominal x ray with nonspecific bowel gas pattern - Recommended to get CT abdomen but patient refused and decided to come to the ED - BP 93/57 Day 1 - Diet was advanced to clears but patient started complaining of severe abdominal pain at same level than prior to admission - Abdominal CT was done, pending report - On IVF - Adequate urine output - Dropped her BP this morning to 86/23 --> lactic acid negative --> 500mL bolus ordered - Afebrile, HR controlled - BP continued to drop --> transferred to ICU and placed central line Day 2 - BP trend 88-126 - Triglycerides 244, unlikely to be etiology - HR 77-92 - Tmax 98.2 - Sat > 92% on RA - CT abdomen with cystic intraabdominal lesion but normal pancreas - GFR up from 11.2 on admission to 16.8 this morning - Glucose trend 79-114 - UO > 125ml/hr every 2 hours since 3PM 03/27 - Only class Ia medication for pancreatitis is furosemide - Class III Lisinopril and Metformin - Class IV Rosuvastatin - AICD interrogation within normal limits - 8.9 year longevity - <0.1% terminated atrial tachycardias Day 3 - BP trend 120-140/45-74 - HR trend 80-95x' - Afebrile - K dropped to 3.2 - Mg dropped to 1.2 - GFR improved from 14 on admission to 32 today - No more pain, has not requested pain meds in over 24 hours - Adequate urine output, 2049/24hrs - Balance : -373 - Passing gas but no BM yet - No pain with diet Day 4 - BP trend 104-145/55-71 - HR trend 58-82x' - Tmax 98.4 - Labs - K up from 3.2 to 3.4 - GFR up from 32 to 44 - PO4 down from 2.9 to 1.8 - Mg up form 1.2 to 1.4 - Glucose trend 111-264 - Has not needed any pain medication - Balance +2,671 - Advanced to full diet with adequate tolerance PLAN BY PROBLEM Pancreatitis, unknown etiology Acute kidney injury 2/2 volume depletion, improved Status post cholecystectomy - Discontinue central line and Peace catheter - PRN pain management Hypokalemia Hypomagnesemia Hypophosphatemia - 40mEq of KCl - 4g MgSO4 x 2 doses - 30Mmol of KPO4 - Repeat BMP with Mg and PO4 in AM CHF (congestive heart failure) AICD (automatic cardioverter/defibrillator) present Coronary artery disease S/P CABG Dyslipidemia - Restart lisinopril and metoprolol - Monitor volume status - New echocardiogram, pending Type II diabetes mellitus - Continue home medications - Novolog 34u TID AC - Lantus 72u bedtime - Glucose check before meals and bedtime - Hypoglycemia protocol Hypertension - Trend BP - Restart lisinopril and metoprolol Hypotension, resolved PROPHYLAXIS DVT- Xarelto GI- not indicated CODE STATUS: FULL CODE DISPOSITION: Admitted to medical floor for pancreatitis, became hypotensive and required ICU transfer, has been stable. Currently medsurg status Patient will remain hospitalized for monitorization of pancreatitis with supportive treatment and pain control. Patient has required inpatient stay longer than 96 hours due to pain control and requiring slower diet advancement as well as low blood pressure episode on Day 2 that required her to be transferred to the ICU
[2020-03-30] MEDS: Insulin Glarg,Human.Rec.Analog 100 Unit/ML SUBCUT SCH (20:50)
[2020-03-30] MEDS: Rosuvastatin 10 MG Tab PO SCH (20:52)
[2020-03-31 05:15] VITALS: PULSE 82
[2020-03-31] MEDS: Levothyroxine 25 MCG Tab PO SCH (06:35)
[2020-03-31] MEDS: Rivaroxaban 10 MG Tab PO SCH (08:21)
[2020-03-31] MEDS: Insulin Lispro 100 Units/ML 3 ML Vial SUBCUT SCH (08:21)
[2020-03-31 08:25] VITALS: BP 110/59
--- NOTE | 2020-03-31 10:33 | PCM.DCSUM1 ---
Discharge Summary - Hospital Course HPI Initial Comments: Patient is a pleasant 69 y/o female, patient of Dr. Smith, with the past medical history of morbid obesity, moderate persistent ashtma without complication, insulin dependent DM2, HTN, hyperlipidemia, CAD, CHF with unknown systolic functions, hypothyroidism, Automatic implantable cardioverter defibrillator in situ, hx of gout, hx of CVD, S/P CABG who presents to the ED complaining of epigastric pain with associated symptoms of nausea and vomiting. Patient states that her symptoms started approximately 1 month ago, and has gradually worsened. She refused to seek medical attention due to the present viral pandemia, but given her symptoms are now not tolerable she is now seeking medical help. She reports constant N/V and loose stools but denies any fever, chills, CP or palpitations, SOB, constipation, or dysuria. She states she's able to keep some food and fluids down but for the most part she has lost appetite. She denies any unintentional weight loss. Patient was evaluated by her PCP earlier today, and work up in the clinic shows wbc 10.1, hemoglobin 13.1 , glucose 162, BUN 52, creatinine 4.32, sodium 140, potassium 4.4, co2 21 ast/ alt 24/27, total bili 0.8, hemoglobin a1c 9.6. X-ray abdomen shows nonspecific bowel gas pattern, and possible renal stones. With the above findings, patient was told to come to the ED for further evaluation. In the ED, patient was found in no acute distress with stable vital signs. Initial work up reveals lipase 1180. Requested CT of abdomen and pelvis remains pending, but hospitalist services was contacted to admit patient to the medical floor for further management of acute pancreatitis. Diagnosis: Stroke: No - Discharge Data Discharge Date: 03/31/20 Discharge Disposition: Home, Self-Care 01 Condition: Good - Referral to Home Health Primary Care Physician: Bernadette Smith MD - Discharge Diagnosis/Problem(s) (1) Acute kidney injury SNOMED Code(s): 45248828, 99010747 ICD Code: N17.9 - ACUTE KIDNEY FAILURE, UNSPECIFIED Status: Acute Current Visit: Yes (2) Pancreatitis SNOMED Code(s): 35714539 ICD Code: K85.90 - ACUTE PANCREATITIS WITHOUT NECROSIS OR INFECTION, UNSP Status: Resolved Current Visit: Yes Qualifiers: Chronicity: acute Pancreatitis type: unspecified pancreatitis type Acute pancreatitis complication: unspecified Qualified Code(s): K85.90 - Acute pancreatitis without necrosis or infection, unspecified (3) Type II diabetes mellitus SNOMED Code(s): 82454771 ICD Code: E11.9 - TYPE 2 DIABETES MELLITUS WITHOUT COMPLICATIONS Status: Acute Priority: Medium Current Visit: No Qualifiers: Diabetes mellitus half-way insulin use: unspecified manager terminal insulin use status Diabetes mellitus complication status: with unspecified complications (4) Volume depletion SNOMED Code(s): 300220019 ICD Code: E86.9 - VOLUME DEPLETION, UNSPECIFIED Status: Acute Current Visit: Yes (5) S/P CABG (coronary artery bypass graft) SNOMED Code(s): 084675369, 888366128, 433986864 ICD Code: Z95.1 - PRESENCE OF AORTOCORONARY BYPASS GRAFT Status: Acute Current Visit: Yes (6) Status post cholecystectomy SNOMED Code(s): 808139080, 66603100, 099220287 ICD Code: Z90.49 - ACQUIRED ABSENCE OF OTHER SPECIFIED PARTS OF DIGESTIVE TRACT Status: Acute Current Visit: Yes (7) Dyslipidemia SNOMED Code(s): 453928237 ICD Code: E78.5 - HYPERLIPIDEMIA, UNSPECIFIED Status: Acute Current Visit : Yes (8) CHF (congestive heart failure) SNOMED Code(s): 34441362 ICD Code: I50.9 - HEART FAILURE, UNSPECIFIED Status: Acute Priority: Medium Current Visit: No Qualifiers: Heart failure type: unspecified Heart failure chronicity: chronic Qualified Code(s): I50.9 - Heart failure, unspecified (9) Chronic back pain SNOMED Code(s): 803640374 ICD Code: M54.9 - DORSALGIA, UNSPECIFIED; G89.29 - OTHER CHRONIC PAIN Status: Acute Priority: Medium Current Visit: No Qualifiers: Back pain location: back pain in unspecified location Back pain laterality : unspecified Qualified Code(s): M54.9 - Dorsalgia, unspecified; G89.29 - Other chronic pain (10) Coronary artery disease SNOMED Code(s): 59676491 ICD Code: I25.10 - ATHSCL HEART DISEASE OF [place] CORONARY ARTERY W/O ANG PCTRS Status: Acute Priority: Low Current Visit: No Qualifiers: Coronary Disease-Associated Artery/Lesion type: unspecified vessel or lesion type [place] vs. transplanted heart: [place] heart Associated angina: without angina Qualified Code(s): I25.10 - Atherosclerotic heart disease of [place] coronary artery without angina pectoris (11) Hypertension SNOMED Code(s): 25032301 ICD Code: I10 - ESSENTIAL (PRIMARY) HYPERTENSION Status: Acute Priority: Medium Current Visit: No Qualifiers: Hypertension type: unspecified Qualified Code(s): I10 - Essential (primary ) hypertension (12) Hypothyroidism SNOMED Code(s): 95972854 ICD Code: E03.9 - HYPOTHYROIDISM, UNSPECIFIED Status: Acute Priority: Medium Current Visit: No Qualifiers: Hypothyroidism type: unspecified Qualified Code(s): E03.9 - Hypothyroidism , unspecified (13) AICD (automatic cardioverter/defibrillator) present SNOMED Code(s): 104186754, 466973211 ICD Code: Z95.810 - PRESENCE OF AUTOMATIC (IMPLANTABLE) CARDIAC DEFIBRILLATOR Status: Acute Current Visit: Yes (14) Ex-smoker for more than 1 year SNOMED Code(s): 42882717147677 ICD Code: Z87.891 - PERSONAL HISTORY OF NICOTINE DEPENDENCE Status: Acute Current Visit: Yes (15) Cerebrovascular disease SNOMED Code(s): 26515433 ICD Code: I67.9 - CEREBROVASCULAR DISEASE, UNSPECIFIED Status: Acute Priority: Low Current Visit: No (16) Gout SNOMED Code(s): 06699113 ICD Code: M10.9 - GOUT, UNSPECIFIED Status: Acute Priority: Low Current Visit: No Qualifiers: Gout site: unspecified site Gout etiology: unspecified cause Chronicity: unspecified Qualified Code(s): M10.9 - Gout, unspecified (17) Hypomagnesemia SNOMED Code(s): 078411049 ICD Code: E83.42 - HYPOMAGNESEMIA Status: Resolved Current Visit: Yes (18) Hypokalemia SNOMED Code(s): 51975817 ICD Code: E87.6 - HYPOKALEMIA Status: Resolved Current Visit: Yes (19) Hypophosphatemia SNOMED Code(s): 6626754 ICD Code: E83.39 - OTHER DISORDERS OF PHOSPHORUS METABOLISM Status: Resolved Current Visit: Yes - Patient Summary/Data Operative Procedure(s) Performed: Central line placement Consults: Consultations 03/27/20 11:27 Consult to Physical Therapy [PT Evaluation and Treatment] [CONS] Routine 03/27/20 11:28 Consult to Occupational Therapy [OT Evaluation and Treatment] [CONS] Routine Hospital Course: ASSESSMENT Admission - Went to PCP's clinic for abdominal pain, diarrhea, nausea and vomiting - Labs were drawn, compared to 2 months ago - Creatinine up from 1.5--> 4.32 - A1c up from 7.9 --> 9.6 - Abdominal x ray with nonspecific bowel gas pattern - Recommended to get CT abdomen but patient refused and decided to come to the ED - BP 93/57 Day 1 - Diet was advanced to clears but patient started complaining of severe abdominal pain at same level than prior to admission - Abdominal CT was done, pending report - On IVF - Adequate urine output - Dropped her BP this morning to 86/23 --> lactic acid negative --> 500mL bolus ordered - Afebrile, HR controlled - BP continued to drop --> transferred to ICU and placed central line Day 2 - BP trend 88-126 - Triglycerides 244, unlikely to be etiology - HR 77-92 - Tmax 98.2 - Sat > 92% on RA - CT abdomen with cystic intraabdominal lesion but normal pancreas - GFR up from 11.2 on admission to 16.8 this morning - Glucose trend 79-114 - UO > 125ml/hr every 2 hours since 3PM 03/27 - Only class Ia medication for pancreatitis is furosemide - Class III Lisinopril and Metformin - Class IV Rosuvastatin - AICD interrogation within normal limits - 8.9 year longevity - <0.1% terminated atrial tachycardias Day 3 - BP trend 120-140/45-74 - HR trend 80-95x' - Afebrile - K dropped to 3.2 - Mg dropped to 1.2 - GFR improved from 14 on admission to 32 today - No more pain, has not requested pain meds in over 24 hours - Adequate urine output, 2049/24hrs - Balance : -373 - Passing gas but no BM yet - No pain with diet Day 4 - BP trend 104-145/55-71 - HR trend 58-82x' - Tmax 98.4 - Labs - K up from 3.2 to 3.4 - GFR up from 32 to 44 - PO4 down from 2.9 to 1.8 - Mg up form 1.2 to 1.4 - Glucose trend 111-264 - Has not needed any pain medication - Balance +2,671 - Advanced to full diet with adequate tolerance - Peace catheter and central line discontinued Day 5 - Tolerated diet - No further pain complaints - Electrolytes have been replaced - Vital signs stable - Patient Instructions Diet: Heart Healthy Diet, Diabetic Diet Activity: As Tolerated Notify Provider of: Fever, Increased Pain, Nausea and/or Vomiting - Discharge Plan *PRESCRIPTION DRUG MONITORING PROGRAM REVIEWED*: Not Applicable *COPY OF PRESCRIPTION DRUG MONITORING REPORT IN PATIENT MANN: Not Applicable Prescriptions/Med Rec: Sodium,Potassium Phosphates [Phosphorous Powder Packet] 1 each PO BID #3 powd.pack Home Medications: Home Meds Furosemide 80 mg PO DAILY 09/25/15 [History] Insulin Aspart [NovoLOG] 0 units SUBCUT TID 09/25/15 [History] Insulin Glarg,Human.Rec.Analog [LantUS Solostar] 0 units SUBCUT BID 09/25/15 [ History] Levothyroxine Sodium 25 mcg PO SUTUTHSA 09/25/15 [History] Lisinopril 20 mg PO DAILY 09/25/15 [History] Rosuvastatin [Crestor] 40 mg PO BEDTIME 09/25/15 [History] allopurinoL [Zyloprim] 300 mg PO DAILY 09/25/15 [History] Levothyroxine 50 mcg PO MOWEFR 01/22/18 [History] Metoprolol Succinate 200 mg PO DAILY 01/22/18 [History] Potassium Chloride [Klor-Con M20] 20 meq PO DAILY 01/22/18 [History] Aspirin [Halfprin] 81 mg PO DAILY 04/26/18 [History] Cholecalciferol (Vitamin D3) [Vitamin D3] 5,000 unit PO DAILY 04/26/18 [History] Diclofenac Sodium [Voltaren] 1 applic TP BID 04/26/18 [History] Exenatide Microspheres [Bydureon] 2 mg SQ MO 04/26/18 [History] Famotidine [Pepcid] 10 mg PO DAILY 04/26/18 [History] Ubidecarenone [Co Q-10] 100 mg PO DAILY 04/26/18 [History] metFORMIN HCl [Glucophage] 850 mg PO BIDMEALS 04/30/18 [History] Docusate Sodium [Colace] 100 mg PO BID cap 05/01/18 [Rx] Magnesium Hydroxide [Milk of Magnesia] 30 ml PO BID PRN cup 05/01/18 [Rx] Rivaroxaban [Xarelto] 10 mg PO DAILY #40 tablet 05/01/18 [Rx] Sennosides [Senna] 8.6 mg PO BID PRN tablet 05/01/18 [Rx] bisacodyL [Dulcolax] 5 mg PO DAILY PRN tablet 05/01/18 [Rx] Denosumab [Prolia] 60 mg SQ ASDIRECTED 03/26/20 [History] Fish Oil/[place]-3 Fatty Acids [Fish Oil 1,000 MG] 1,000 mg PO DAILY 03/26/20 [ History] Sodium,Potassium Phosphates [Phosphorous Powder Packet] 1 each PO BID #3 powd.pack 03/31/20 [Rx] Oxygen Therapy Mode: Room Air Patient Handouts: Rivaroxaban oral tablets, Acute Pancreatitis Forms: ED Department Discharge Referrals: Bernadette Smith MD [Primary Care Provider] - - Discharge Summary/Plan Comment DC Time >30 min.: Yes - General Info Date of Service: 03/31/20 Subjective Update: Tolerated diet Slept OK BM yesterday No pain - Patient Data Vitals - Most Recent: Last Vital Signs Temp 98.1 F 03/31/20 08:23 Pulse 82 03/31/20 04:00 Resp 19 03/31/20 08:23 BP 110/59 L 03/31/20 08:23 Pulse Ox 95 03/31/20 08:23 Weight - Most Recent: 97.704 kg - Exam General: Reports: Alert, Oriented, Cooperative, No Acute Distress HEENT: Reports: Pupils Equal, Pupils Reactive, Mucous Membr. Moist/[place] Neck: Reports: Supple. Denies: Lymphadenopathy Lungs: Reports: Clear to Auscultation, Normal Respiratory Effort. Denies: Crackles, Rales, Rhonchi, Rub, Stridor, Wheezing Cardiovascular: Reports: Regular Rate, Regular Rhythm. Denies: Murmurs, Gallops , Rubs GI/Abdominal Exam: Normal Bowel Sounds, Soft, Non-Tender, Distended. No: Guarding, Rigid, Rebound Extremities: Normal Inspection, Normal Range of Motion, Non-Tender, No Pedal Edema, Normal Capillary Refill Skin: Reports: Warm, Dry Neurological: Reports: No New Focal Deficit Psy/Mental Status: Reports: Alert, Normal Affect, Normal Mood Discharge Operative/Procedures - Procedures Performed CL Indication: medication administration
== END 2020-03-31 11:25 | disposition home or self-care (01) | DRG 439 ==
LOC: JD.ED 12:32 → JD.MS 20:09 → JD.ICU 03-27 14:59
PROVIDERS: ADMIT Internal Medicine; ATTEND Internal Medicine
PROC: 02HV33Z Insertion of Infusion Device into Superior Vena Cava, Percutaneous Approach (ICD-10-PCS; principal; 2020-03-27)
DX: K85.90 Acute pancreatitis without necrosis or infection, unspecified (principal); N28.9 Disorder of kidney and ureter, unspecified; I50.22 Chronic systolic (congestive) heart failure; I11.0 Hypertensive heart disease with heart failure; I50.9 Heart failure, unspecified; E78.00 Pure hypercholesterolemia, unspecified; J45.909 Unspecified asthma, uncomplicated; Z86.010 Personal history of colon polyps; Z87.442 Personal history of urinary calculi; N17.9 Acute kidney failure, unspecified; N31.8 Other neuromuscular dysfunction of bladder; M48.061 Spinal stenosis, lumbar region without neurogenic claudication; I13.0 Hypertensive heart and chronic kidney disease with heart failure and stage 1 through stage 4 chronic kidney disease, or unspecified chronic kidney disease; E66.01 Morbid (severe) obesity due to excess calories; E66.9 Obesity, unspecified; Z96.698 Presence of other orthopedic joint implants; J45.40 Moderate persistent asthma, uncomplicated; E11.9 Type 2 diabetes mellitus without complications; Z90.710 Acquired absence of both cervix and uterus; I72.8 Aneurysm of other specified arteries; Z88.8 Allergy status to other drugs, medicaments and biological substances; Z79.01 Long term (current) use of anticoagulants; I25.10 Atherosclerotic heart disease of native coronary artery without angina pectoris; I95.9 Hypotension, unspecified; E03.9 Hypothyroidism, unspecified; Z95.810 Presence of automatic (implantable) cardiac defibrillator; M10.9 Gout, unspecified; Z95.1 Presence of aortocoronary bypass graft; E86.9 Volume depletion, unspecified; Z90.49 Acquired absence of other specified parts of digestive tract; G89.29 Other chronic pain; M54.9 Dorsalgia, unspecified; Z87.891 Personal history of nicotine dependence; Z86.73 Personal history of transient ischemic attack (TIA), and cerebral infarction without residual deficits; E83.42 Hypomagnesemia; E87.6 Hypokalemia; E83.39 Other disorders of phosphorus metabolism; Z79.4 Long term (current) use of insulin; Z79.890 Hormone replacement therapy; Z79.899 Other long term (current) drug therapy; Z79.82 Long term (current) use of aspirin; N18.9 Chronic kidney disease, unspecified; N20.0 Calculus of kidney; E11.22 Type 2 diabetes mellitus with diabetic chronic kidney disease
CPT/HCPCS: 36415; 74176; 81001; 83690; 87086; 93005; 96361; 96375; 99285; A9270 ×2; J2405; J7030; 51702; 51798; 71045; 71045-26; 80048; 80053; 80061; 82962; 83036; 83605; 83735; 84100; 84443; 84478; 85014; 85018; 85025; 93010; 96365; 96368; 97161-GP; 97165-GO; C9113; J0696; J1815-GY; J2270; J3475; J3480; J3490; J7040; J7050; J7120

== ENCOUNTER 2020-06-22 09:27 | Observation (INO) | payer MEDICARE, OTHER ==
--- NOTE | 2020-06-22 09:50 | EDM.PDOC ---
<Rohit Ferrer - Last Filed: 06/22/20 10:05> ED HPI GENERAL MEDICAL PROBLEM - General Chief Complaint: Abdominal Pain Stated Complaint: STERNUM PAIN, BEEN GOING ON FOR 1 WEEK Time Seen by Provider: 06/22/20 09:45 Source of Information: Reports: Patient History Limitations: Reports: No Limitations - History of Present Illness INITIAL COMMENTS - FREE TEXT/NARRATIVE: Mellisa is a 69 YO female that presents to the ED with a complaint of epigastric pain. Pain began one week ago and has been constant. She was unable to describe the feeling of the pain. Rated at a 10 out of 10. Denies anything making the pain worse. Complains of constant nausea and episodes of vomiting every time she eats or drinks. Pain does not radiate to neck, arms, or back. Associated complaints of dizziness, decreased urine output, and diarrhea for three days. Denies fever, chills, chest pain, shortness of breath, dysuria, and constipation. Has not taken OTC medications for symptom management. Onset Date: 06/15/20 Duration: Week(s): Location: Reports: Abdomen Quality: Reports: Other (Unable to describe. ) Improves with: Reports: None Worsens with: Reports: Eating Associated Symptoms: Reports: Loss of Appetite, Nausea/Vomiting - Related Data Allergies Allergy/AdvReac Type Severity Reaction Status Date / Time simvastatin [From Zocor] AdvReac Severe Muscle Verified 06/22/20 09:46 Aches Home Meds: Home Meds Furosemide 80 mg PO DAILY 09/25/15 [History] Insulin Aspart [NovoLOG] 0 units SUBCUT TID 09/25/15 [History] Insulin Glarg,Human.Rec.Analog [LantUS Solostar] 0 units SUBCUT DAILY 09/25/15 [History] Levothyroxine Sodium 25 mcg PO SUTUTHSA 09/25/15 [History] Lisinopril 20 mg PO DAILY 09/25/15 [History] Rosuvastatin [Crestor] 40 mg PO BEDTIME 09/25/15 [History] allopurinoL [Zyloprim] 300 mg PO DAILY 09/25/15 [History] Levothyroxine 50 mcg PO MOWEFR 01/22/18 [History] Metoprolol Succinate 200 mg PO DAILY 01/22/18 [History] Potassium Chloride [Klor-Con M20] 20 meq PO DAILY 01/22/18 [History] Aspirin [Halfprin] 81 mg PO DAILY 04/26/18 [History] Cholecalciferol (Vitamin D3) [Vitamin D3] 5,000 unit PO DAILY 04/26/18 [History] Diclofenac Sodium [Voltaren] 1 applic TP BID 04/26/18 [History] Exenatide Microspheres [Bydureon] 2 mg SQ MO 04/26/18 [History] Famotidine [Pepcid] 10 mg PO DAILY 04/26/18 [History] Ubidecarenone [Co Q-10] 100 mg PO DAILY 04/26/18 [History] metFORMIN HCl [Glucophage] 850 mg PO BIDMEALS 04/30/18 [History] Rivaroxaban [Xarelto] 10 mg PO DAILY #40 tablet 05/01/18 [Rx] Denosumab [Prolia] 60 mg SQ ASDIRECTED 03/26/20 [History] Fish Oil/[place]-3 Fatty Acids [Fish Oil 1,000 MG] 1,000 mg PO DAILY 03/26/20 [History] Sodium,Potassium Phosphates [Phosphorous Powder Packet] 1 each PO BID #3 powd.pack 03/31/20 [Rx] ED ROS GENERAL - Review of Systems Review Of Systems: See Below Constitutional: Reports: Decreased Appetite. Denies: Fever, Chills Respiratory: Denies: Shortness of Breath Cardiovascular: Reports: Lightheadedness. Denies: Chest Pain, Orthopnea, PND GI/Abdominal: Reports: Abdominal Pain, Diarrhea, Decreased Appetite, Nausea, Vomiting (Vomits after eating or drinking. Described as clear liquid. ). Denies: Bloody Stool, Constipation, Hematemesis : Reports: Other (Urinating 4-5 times daily which she describes as less than her normal. ). Denies: Dysuria ED EXAM, GI/ABD - Physical Exam Exam: See Below Exam Limited By: No Limitations General Appearance: Alert Throat/Mouth: Other (Dry mucous membranes in mouth. ) Head: Atraumatic, Normocephalic Respiratory/Chest: No Respiratory Distress, Lungs Clear, Normal Breath Sounds, No Accessory Muscle Use, Chest Non-Tender Cardiovascular: Regular Rate, Rhythm, No Gallop, No Murmur, No Rub GI/Abdominal Exam: Normal Bowel Sounds, Tender (Tender to light palpation in RUQ and LUQ.). No: Guarding, Rigid Back Exam: No: CVA Tenderness (L), CVA Tenderness (R) Neurological: Alert, Oriented Skin Exam: Warm, Dry, Normal Color Departure - Departure Disposition: Admitted As Inpatient 64 Clinical Impression: Intractable nausea and vomiting, Ketoacidosis, Chronic renal insufficiency, stage III (moderate), Hyponatremia, Fluid volume depletion - Discharge Information Referrals: Bernadette Smith MD [Primary Care Provider] - Forms: ED Department Discharge <Luke Martin - Last Filed: 06/22/20 15:33> ED HPI GENERAL MEDICAL PROBLEM - General Source of Information: Reports: Patient History Limitations: Reports: No Limitations Upper Abdominal Pain Score (Numeric/FACES): 10 Past Medical History HEENT History: Reports: None Other HEENT History: wear glasses Cardiovascular History: Reports: CAD, Heart Failure, High Cholesterol, Hypertension, Other (See Below) Other Cardiovascular History: Splenic artery aneurysm Respiratory History: Reports: Asthma Gastrointestinal History: Reports: Colon Polyp Genitourinary History: Reports: Renal Calculus, Other (See Below) Other Genitourinary History: Hypertonicity of bladder ORDER PICKER History: Reports: Musculoskeletal History: Reports: Back Pain, Chronic, Gout, Other (See Below) Other Musculoskeletal History: Spinal stenosis of lumbar region, left knee pain Neurological History: Reports: Other (See Below) Other Neuro History: Cerebrovascular disease Psychiatric History: Reports: None Endocrine/Metabolic History: Reports: Diabetes, Type II, Hypothyroidism, Obesity/BMI 30+, Osteopenia Hematologic History: Reports: None Immunologic History: Reports: None Oncologic (Cancer) History: Reports: None Dermatologic History: Reports: None - Infectious Disease History Infectious Disease History: Reports: Measles - Past Surgical History Head Surgeries/Procedures: Reports: None Other HEENT Surgeries/Procedures: Arthroplasty for TMJ Cardiovascular Surgical History: Reports: Coronary Artery Bypass, Other (See Below) Other Cardiovascular Surgeries/Procedures: Cardiac cath Respiratory Surgical History: Reports: None GI Surgical History: Reports: Appendectomy, Cholecystectomy, Colonoscopy, EGD, Polypectomy Female Surgical History: Reports: Hysterectomy, Lithotripsy/ESWL Endocrine Surgical History: Reports: None Musculoskeletal Surgical History: Reports: Other (See Below) Other Musculoskeletal Surgeries/Procedures:: Osteoplasty radius ulna shortening Oncologic Surgical History: Reports: None Dermatological Surgical History: Reports: None Social & Family History - Family History Family Medical History: Noncontributory - Caffeine Use Caffeine Use: Reports: Coffee, Soda, Tea EKG INTERPRETATION EKG Date: 06/22/20 Time: 10:54 Rhythm: NSR Rate (Beats/Min): 84 [place]: LAD-Left [place] Deviation (-32 degrees) P-Wave: Present QRS: LBBB ST-T: Normal QT: Prolonged (Moderately prolonged) EKG Interpretation Comments: Abnormal ECG Course - Vital Signs Last Recorded V/S: Last Vital Signs Temp 36.3 C 06/22/20 09:38 Pulse 88 06/22/20 09:38 Resp 22 H 06/22/20 09:38 BP 107/64 06/22/20 09:38 Pulse Ox 92 L 06/22/20 09:38 Orthostatic Blood Pressure [ 106/82 Standing] Orthostatic Blood Pressure [ 104/81 Sitting] Orthostatic Blood Pressure [ 108/70 Supine] - Orders/Labs/Meds Orders: Active Orders 24 hr Category Date Time Status Blood Glucose Check, Bedside [RC] ONETIME Care 06/22/20 10:06 Active EKG Documentation Completion [RC] STAT Care 06/22/20 09:56 Active Orthostatic Vital Signs [RC] ASDIRECTED Care 06/22/20 09:53 Active MAGNESIUM [CHEM] Stat Lab 06/22/20 11:17 Received PHOSPHORUS [CHEM] Stat Lab 06/22/20 11:17 Received Sodium Chloride 0.9% [Normal Saline] 1,000 ml Med 06/22/20 11:45 Active IV ASDIRECTED Medication Orders Sodium Chloride (Normal Saline) 1,000 mls @ 999 mls/hr IV ASDIRECTED MAEGAN Labs: Laboratory Tests 06/22/20 06/22/20 06/22/20 Range/Units 10:06 10:20 10:25 WBC 4.57 (3.98-10.04) K/mm3 RBC 5.02 (3.98-5.22) M/mm3 Hgb 13.9 D (11.2-15.7) gm/dl Hct 43.2 (34.1-44.9) % MCV 86.1 (79.4-94.8) fl MCH 27.7 (25.6-32.2) pg MCHC 32.2 (32.2-35.5) g/dl RDW Std Deviation 48.3 H (36.4-46.3) fL Plt Count 220 (182-369) K/mm3 MPV 10.1 (9.4-12.3) fl Neut % (Auto) 61.3 (34.0-71.1) % Lymph % (Auto) 22.3 (19.3-51.7) % Worth % (Auto) 16.0 H (4.7-12.5) % Eos % (Auto) 0 L (0.7-5.8) Baso % (Auto) 0.2 (0.1-1.2) % Neut # (Auto) 2.80 (1.56-6.13) K/mm3 Lymph # (Auto) 1.02 L (1.18-3.74) K/mm3 Worth # (Auto) 0.73 H (0.24-0.36) K/mm3 Eos # (Auto) 0.00 L (0.04-0.36) K/mm3 Baso # (Auto) 0.01 (0.01-0.08) K/mm3 Neutrophils % (Manual) Cancelled Band Neutrophils % Cancelled Lymphocytes % (Manual) Cancelled Atypical Lymphs % Cancelled Immat Monocytes % (Man) Cancelled Monocytes % (Manual) Cancelled Eosinophils % (Manual) Cancelled Basophils % (Manual) Cancelled Metamyelocytes % Cancelled Myelocytes % Cancelled Promyelocytes % Cancelled Blast Cells % Cancelled Plasma Cell % (Manual) Cancelled Immature Gran # Cancelled Absolute Neutrophils Cancelled Absolute Seg Neuts Cancelled Band Neutrophils # Cancelled Lymphocytes # (Manual) Cancelled Monocytes # (Manual) Cancelled Eosinophils # (Manual) Cancelled Basophils # (Manual) Cancelled Absolute Metamyelocyte Cancelled Absolute Myelocytes Cancelled Absolute Promyelocytes Cancelled Absolute Plasma Cells Cancelled Nucleated RBCs Cancelled Differential Comment Cancelled Manual Slide Review Abnormal smear Hypersegmented Neuts Cancelled Atypical Lymphocytes Cancelled Vacuolated Monocytes Cancelled Absolute Blast Cells Cancelled Toxic Granulation Cancelled Dohle Bodies Cancelled Pelger-Huet Cells Cancelled Megakaryocytic Frags Cancelled Jesica Rods Cancelled WBC Morphology Comment Cancelled Platelet Estimate Cancelled Clumped Platelets Cancelled Giant Platelets Cancelled Plt Morphology Comment Cancelled Polychromasia Cancelled Hypochromasia Cancelled Poikilocytosis Cancelled Basophilic Stippling Cancelled Anisocytosis Cancelled Microcytosis Cancelled Macrocytosis Cancelled Spherocytes Cancelled Pappenheimer Bodies Cancelled Sickle Cells Cancelled Target Cells Cancelled Tear Drop Cells Cancelled Ovalocytes Cancelled Stomatocytes Cancelled Helmet Cells Cancelled [place] Bodies Cancelled [place] Rings Cancelled [place] Cells Cancelled Elliptocytes Cancelled Acanthocytes (Spur) Cancelled Rouleaux Cancelled Hemoglobin C Crystals Cancelled Schistocytes Cancelled RBC Morph Comment Cancelled Smear Path Review Cancelled ESR (0-20) mm/hr Alfred Bodies Cancelled PT 10.6 (9.7-12.0) SECONDS INR 0.97 APTT 27 (22-31) SECONDS Sodium (136-145) mEq/L Potassium (3.5-5.1) mEq/L Chloride (98-107) mEq/L Carbon Dioxide (21-32) mEq/L Anion Gap (5-15) BUN (7-18) mg/dL Creatinine (0.55-1.02) mg/dL Est Cr Clr Drug Dosing mL/min Estimated GFR (MDRD) (>60) mL/min BUN/Creatinine Ratio (14-18) Glucose (83-115) mg/dL POC Glucose 215 H (83-110) mg/dL Hemoglobin A1c (4.50-6.20) % Lactic Acid (0.4-2.0) mmol/L Calcium (8.5-10.1) mg/dL Total Bilirubin (0.2-1.0) mg/dL GGT (5-55) U/L AST (15-37) U/L ALT (14-59) U/L Alkaline Phosphatase (46-116) U/L CK-MB (CK-2) (0-3.6) ng/ml Troponin I (0.00-0.056) ng/mL NT-Pro-B Natriuret Pep (0-125) pg/mL Total Protein (6.4-8.2) g/dl Albumin (3.4-5.0) g/dl Globulin gm/dL Albumin/Globulin Ratio (1-2) Lipase (73-393) U/L Urine Color (Yellow) Urine Appearance (Clear) Urine pH (5.0-8.0) Ur Specific [place] (1.005-1.030) Urine Protein (Negative) Urine Glucose (UA) (Negative) Urine Ketones (Negative) Urine Occult Blood (Negative) Urine Nitrite (Negative) Urine Bilirubin (Negative) Urine Urobilinogen (0.2-1.0) Ur Leukocyte Esterase (Negative) Ketones (0.0-0.3) mM Slides for Path Review Cancelled 06/22/20 06/22/20 06/22/20 Range/Units 10:25 10:25 10:25 WBC (3.98-10.04) K/mm3 RBC (3.98-5.22) M/mm3 Hgb (11.2-15.7) gm/dl Hct (34.1-44.9) % MCV (79.4-94.8) fl MCH (25.6-32.2) pg MCHC (32.2-35.5) g/dl RDW Std Deviation (36.4-46.3) fL Plt Count (182-369) K/mm3 MPV (9.4-12.3) fl Neut % (Auto) (34.0-71.1) % Lymph % (Auto) (19.3-51.7) % Worth % (Auto) (4.7-12.5) % Eos % (Auto) (0.7-5.8) Baso % (Auto) (0.1-1.2) % Neut # (Auto) (1.56-6.13) K/mm3 Lymph # (Auto) (1.18-3.74) K/mm3 Worth # (Auto) (0.24-0.36) K/mm3 Eos # (Auto) (0.04-0.36) K/mm3 Baso # (Auto) (0.01-0.08) K/mm3 Neutrophils % (Manual) Band Neutrophils % Lymphocytes % (Manual) Atypical Lymphs % Immat Monocytes % (Man) Monocytes % (Manual) Eosinophils % (Manual) Basophils % (Manual) Metamyelocytes % Myelocytes % Promyelocytes % Blast Cells % Plasma Cell % (Manual) Immature Gran # Absolute Neutrophils Absolute Seg Neuts Band Neutrophils # Lymphocytes # (Manual) Monocytes # (Manual) Eosinophils # (Manual) Basophils # (Manual) Absolute Metamyelocyte Absolute Myelocytes Absolute Promyelocytes Absolute Plasma Cells Nucleated RBCs Differential Comment Manual Slide Review Hypersegmented Neuts Atypical Lymphocytes Vacuolated Monocytes Absolute Blast Cells Toxic Granulation Dohle Bodies Pelger-Huet Cells Megakaryocytic Frags Jesica Rods WBC Morphology Comment Platelet Estimate Clumped Platelets Giant Platelets Plt Morphology Comment Polychromasia Hypochromasia Poikilocytosis Basophilic Stippling Anisocytosis Microcytosis Macrocytosis Spherocytes Pappenheimer Bodies Sickle Cells Target Cells Tear Drop Cells Ovalocytes Stomatocytes Helmet Cells Pearson-[place] Bodies [place] Rings [place] Cells Elliptocytes Acanthocytes (Spur) Rouleaux Hemoglobin C Crystals Schistocytes RBC Morph Comment Smear Path Review ESR 80 H (0-20) mm/hr Alfred Bodies PT (9.7-12.0) SECONDS INR APTT (22-31) SECONDS Sodium (136-145) mEq/L Potassium (3.5-5.1) mEq/L Chloride (98-107) mEq/L Carbon Dioxide (21-32) mEq/L Anion Gap (5-15) BUN (7-18) mg/dL Creatinine (0.55-1.02) mg/dL Est Cr Clr Drug Dosing mL/min Estimated GFR (MDRD) (>60) mL/min BUN/Creatinine Ratio (14-18) Glucose (83-115) mg/dL POC Glucose (83-110) mg/dL Hemoglobin A1c 9.50 H (4.50-6.20) % Lactic Acid (0.4-2.0) mmol/L Calcium (8.5-10.1) mg/dL Total Bilirubin (0.2-1.0) mg/dL GGT (5-55) U/L AST (15-37) U/L ALT (14-59) U/L Alkaline Phosphatase (46-116) U/L CK-MB (CK-2) (0-3.6) ng/ml Troponin I (0.00-0.056) ng/mL NT-Pro-B Natriuret Pep (0-125) pg/mL Total Protein (6.4-8.2) g/dl Albumin (3.4-5.0) g/dl Globulin gm/dL Albumin/Globulin Ratio (1-2) Lipase (73-393) U/L Urine Color (Yellow) Urine Appearance (Clear) Urine pH (5.0-8.0) Ur Specific [place] (1.005-1.030) Urine Protein (Negative) Urine Glucose (UA) (Negative) Urine Ketones (Negative) Urine Occult Blood (Negative) Urine Nitrite (Negative) Urine Bilirubin (Negative) Urine Urobilinogen (0.2-1.0) Ur Leukocyte Esterase (Negative) Ketones 1.70 (0.0-0.3) mM Slides for Path Review 06/22/20 06/22/20 06/22/20 Range/Units 10:56 11:17 11:18 WBC (3.98-10.04) K/mm3 RBC (3.98-5.22) M/mm3 Hgb (11.2-15.7) gm/dl Hct (34.1-44.9) % MCV (79.4-94.8) fl MCH (25.6-32.2) pg MCHC (32.2-35.5) g/dl RDW Std Deviation (36.4-46.3) fL Plt Count (182-369) K/mm3 MPV (9.4-12.3) fl Neut % (Auto) (34.0-71.1) % Lymph % (Auto) (19.3-51.7) % Worth % (Auto) (4.7-12.5) % Eos % (Auto) (0.7-5.8) Baso % (Auto) (0.1-1.2) % Neut # (Auto) (1.56-6.13) K/mm3 Lymph # (Auto) (1.18-3.74) K/mm3 Worth # (Auto) (0.24-0.36) K/mm3 Eos # (Auto) (0.04-0.36) K/mm3 Baso # (Auto) (0.01-0.08) K/mm3 Neutrophils % (Manual) Band Neutrophils % Lymphocytes % (Manual) Atypical Lymphs % Immat Monocytes % (Man) Monocytes % (Manual) Eosinophils % (Manual) Basophils % (Manual) Metamyelocytes % Myelocytes % Promyelocytes % Blast Cells % Plasma Cell % (Manual) Immature Gran # Absolute Neutrophils Absolute Seg Neuts Band Neutrophils # Lymphocytes # (Manual) Monocytes # (Manual) Eosinophils # (Manual) Basophils # (Manual) Absolute Metamyelocyte Absolute Myelocytes Absolute Promyelocytes Absolute Plasma Cells Nucleated RBCs Differential Comment Manual Slide Review Hypersegmented Neuts Atypical Lymphocytes Vacuolated Monocytes Absolute Blast Cells Toxic Granulation Dohle Bodies Pelger-Huet Cells Megakaryocytic Frags Jesica Rods WBC Morphology Comment Platelet Estimate Clumped Platelets Giant Platelets Plt Morphology Comment Polychromasia Hypochromasia Poikilocytosis Basophilic Stippling Anisocytosis Microcytosis Macrocytosis Spherocytes Pappenheimer Bodies Sickle Cells Target Cells Tear Drop Cells Ovalocytes Stomatocytes Helmet Cells Pearson-[place] Bodies [place] Rings [place] Cells Elliptocytes Acanthocytes (Spur) Rouleaux Hemoglobin C Crystals Schistocytes RBC Morph Comment Smear Path Review ESR (0-20) mm/hr Alfred Bodies PT (9.7-12.0) SECONDS INR APTT (22-31) SECONDS Sodium 132 L D (136-145) mEq/L Potassium 3.7 (3.5-5.1) mEq/L Chloride 93 L D (98-107) mEq/L Carbon Dioxide 24 (21-32) mEq/L Anion Gap 18.7 H (5-15) BUN 23 H (7-18) mg/dL Creatinine 1.6 H (0.55-1.02) mg/dL Est Cr Clr Drug Dosing 23.16 mL/min Estimated GFR (MDRD) 32 (>60) mL/min BUN/Creatinine Ratio 14.4 (14-18) Glucose 219 H (83-115) mg/dL POC Glucose (83-110) mg/dL Hemoglobin A1c (4.50-6.20) % Lactic Acid 1.8 (0.4-2.0) mmol/L Calcium 9.1 D (8.5-10.1) mg/dL Total Bilirubin 0.9 (0.2-1.0) mg/dL GGT 39 (5-55) U/L AST 42 H (15-37) U/L ALT 35 (14-59) U/L Alkaline Phosphatase 59 (46-116) U/L CK-MB (CK-2) < 0.5 (0-3.6) ng/ml Troponin I 0.020 (0.00-0.056) ng/mL NT-Pro-B Natriuret Pep 438 H (0-125) pg/mL Total Protein 7.9 (6.4-8.2) g/dl Albumin 3.2 L (3.4-5.0) g/dl Globulin 4.7 gm/dL Albumin/Globulin Ratio 0.7 L (1-2) Lipase 355 (73-393) U/L Urine Color (Yellow) Urine Appearance (Clear) Urine pH (5.0-8.0) Ur Specific [place] (1.005-1.030) Urine Protein (Negative) Urine Glucose (UA) (Negative) Urine Ketones (Negative) Urine Occult Blood (Negative) Urine Nitrite (Negative) Urine Bilirubin (Negative) Urine Urobilinogen (0.2-1.0) Ur Leukocyte Esterase (Negative) Ketones (0.0-0.3) mM Slides for Path Review 06/22/20 Range/Units 14:30 WBC (3.98-10.04) K/mm3 RBC (3.98-5.22) M/mm3 Hgb (11.2-15.7) gm/dl Hct (34.1-44.9) % MCV (79.4-94.8) fl MCH (25.6-32.2) pg MCHC (32.2-35.5) g/dl RDW Std Deviation (36.4-46.3) fL Plt Count (182-369) K/mm3 MPV (9.4-12.3) fl Neut % (Auto) (34.0-71.1) % Lymph % (Auto) (19.3-51.7) % Worth % (Auto) (4.7-12.5) % Eos % (Auto) (0.7-5.8) Baso % (Auto) (0.1-1.2) % Neut # (Auto) (1.56-6.13) K/mm3 Lymph # (Auto) (1.18-3.74) K/mm3 Worth # (Auto) (0.24-0.36) K/mm3 Eos # (Auto) (0.04-0.36) K/mm3 Baso # (Auto) (0.01-0.08) K/mm3 Neutrophils % (Manual) Band Neutrophils % Lymphocytes % (Manual) Atypical Lymphs % Immat Monocytes % (Man) Monocytes % (Manual) Eosinophils % (Manual) Basophils % (Manual) Metamyelocytes % Myelocytes % Promyelocytes % Blast Cells % Plasma Cell % (Manual) Immature Gran # Absolute Neutrophils Absolute Seg Neuts Band Neutrophils # Lymphocytes # (Manual) Monocytes # (Manual) Eosinophils # (Manual) Basophils # (Manual) Absolute Metamyelocyte Absolute Myelocytes Absolute Promyelocytes Absolute Plasma Cells Nucleated RBCs Differential Comment Manual Slide Review Hypersegmented Neuts Atypical Lymphocytes Vacuolated Monocytes Absolute Blast Cells Toxic Granulation Dohle Bodies Pelger-Huet Cells Megakaryocytic Frags Jesica Rods WBC Morphology Comment Platelet Estimate Clumped Platelets Giant Platelets Plt Morphology Comment Polychromasia Hypochromasia Poikilocytosis Basophilic Stippling Anisocytosis Microcytosis Macrocytosis Spherocytes Pappenheimer Bodies Sickle Cells Target Cells Tear Drop Cells Ovalocytes Stomatocytes Helmet Cells Pearson-[place] Bodies [place] Rings [place] Cells Elliptocytes Acanthocytes (Spur) Rouleaux Hemoglobin C Crystals Schistocytes RBC Morph Comment Smear Path Review ESR (0-20) mm/hr Alfred Bodies PT (9.7-12.0) SECONDS INR APTT (22-31) SECONDS Sodium (136-145) mEq/L Potassium (3.5-5.1) mEq/L Chloride (98-107) mEq/L Carbon Dioxide (21-32) mEq/L Anion Gap (5-15) BUN (7-18) mg/dL Creatinine (0.55-1.02) mg/dL Est Cr Clr Drug Dosing mL/min Estimated GFR (MDRD) (>60) mL/min BUN/Creatinine Ratio (14-18) Glucose (83-115) mg/dL POC Glucose (83-110) mg/dL Hemoglobin A1c (4.50-6.20) % Lactic Acid (0.4-2.0) mmol/L Calcium (8.5-10.1) mg/dL Total Bilirubin (0.2-1.0) mg/dL GGT (5-55) U/L AST (15-37) U/L ALT (14-59) U/L Alkaline Phosphatase (46-116) U/L CK-MB (CK-2) (0-3.6) ng/ml Troponin I (0.00-0.056) ng/mL NT-Pro-B Natriuret Pep (0-125) pg/mL Total Protein (6.4-8.2) g/dl Albumin (3.4-5.0) g/dl Globulin gm/dL Albumin/Globulin Ratio (1-2) Lipase (73-393) U/L Urine Color Light yellow (Yellow) Urine Appearance Clear (Clear) Urine pH 6.0 (5.0-8.0) Ur Specific [place] 1.020 (1.005-1.030) Urine Protein Trace H (Negative) Urine Glucose (UA) 2+ H (Negative) Urine Ketones Negative (Negative) Urine Occult Blood Trace-lysed H (Negative) Urine Nitrite Negative (Negative) Urine Bilirubin Negative (Negative) Urine Urobilinogen 0.2 (0.2-1.0) Ur Leukocyte Esterase Negative (Negative) Ketones (0.0-0.3) mM Slides for Path Review Meds: Medications Generic Name Dose Route Start Last Admin Trade Name Freq PRN Reason Stop Dose Admin Sodium Chloride 1,000 mls @ 999 mls/hr 06/22/20 11:45 Normal Saline IV ASDIRECTED MAEGAN Discontinued Medications Generic Name Dose Route Start Last Admin Trade Name Freq PRN Reason Stop Dose Admin Hydromorphone HCl 0.5 mg 06/22/20 11:37 06/22/20 11:49 Dilaudid IVPUSH 06/22/20 11:38 0.5 mg ONETIME ONE Administration Sodium Chloride 1,000 mls @ 150 mls/hr 06/22/20 10:00 06/22/20 11:39 Normal Saline IV 999 mls/hr ASDIRECTED MAEGAN Infusion Metoclopramide HCl 10 mg 06/22/20 09:56 06/22/20 10:28 Reglan IVPUSH 06/22/20 09:57 10 mg ONETIME ONE Administration Ondansetron HCl 4 mg 06/22/20 11:41 06/22/20 11:47 Zofran IVPUSH 06/22/20 11:42 4 mg ONETIME ONE Administration - Radiology Interpretation Free Text/Narrative:: 69-year-old female presents to the ED for evaluation of epigastric pain with associated recurrent nausea and vomiting of bilious material for the last week. In the case that perhaps a little bit of fluids are staying down but no solids for the last week. She feels lightheaded dizzy and weak. She has a type II diabetic but has not been checking her blood sugars. Sugar at the bedside was 215. Emanation does reveal significant epigastric pain with right upper quadrant and left upper quadrant abdominal pain on examination. Patient is on Bydureon--started about one month ago in addition to Metformin and insulin for blood sugar control. Patient seen by PA student and I have also personally examined and interrogated the patient. I agree with PA students initial eval uation and assessment. He has documented history and physical examination in the chart. I have ordered the appropriate tests and IV fluids and medication Reglan 10 mg IV for nausea relief. My overall concern is whether or not it is the Bydureon that she started a month ago causing current side effects.Orthostatic blood pressures reveal a blood pressure of 108/70 with a heart rate of 84 supine and standing it was 106/82 with a heart rate of 98 standing. Not orthostatic. - Re-Assessments/Exams Free Text/Narrative Re-Assessment/Exam: 06/22/20 10:54 White cell count is 4.57. Auto differential shows 61% neutrophils. Hemoglobin is 13.9 with hematocrit of 43.2. Platelet count is 220,000 06/22/20 11:31 Sedimentation rate is elevated at 80. PT is 10.6 with an INR of 0.97. PTT is 27. Sodium is slightly low at 132. Potassium is 3.7. Chloride is low at 93. Bicarb 24 anion gap is elevated at 18.7. BUN is 23 with a creatinine of 1.6. Estimated GFR is 32 i.e. stage III chronic kidney disease. Glucose elevated at 219 the bedside was 215. Calcium is 9.1 with a bilirubin of 0.9. GGT is normal at 39. AST is oddly elevated at 42. ALT is 35. Alkaline phosphatase is 59. CK-MB fraction was less than 0.5. Troponin was 0.020. Total protein 7.2 with an albumin fraction of 3.2. Lipase was 355. 06/22/20 11:39 plan I am going to open up the IV to full. Patient is having a lot of discomfort in the epigastrium. Marked elevation of her sedimentation rate at 80. Serum ketones and lactic acid are pending. I did order a BNP as well. Is been going to CT her abdomen without contrast to her poor current kidney function and at present inability keep down oral fluids. We will give her Zofran 4 mg IV persistent nausea and Dilaudid 0.5 mg IV for pain relief. 06/22/20 12:44 CT of the abdomen reveals stents within the cardiac arteries on both sides of the heart. Cardiac silhouette is essentially normal size. Visualized portions of the base of the lungs rogers increased density within both lung bases. Uncertain how much of this is acute or represent small areas of pneumonia. Very minimal hiatal hernia appreciated. Liver appears to be homogeneous without any intraductal dilatation. Gallbladder is absent with surgical clips present in the gallbladder fossa. Pancreas appears to be normal although the head of the pancreas is slightly bulbous there is no evidence of acute pancreatitis clinically. Marked renal atrophy noted bilaterally. There are multiple renal stones in both kidneys. Fairly large stone near the left r enal pelvis appreciated. There is moderate atherosclerosis throughout the aorta particularly noted superior to the renal arteries bilaterally. Animal renal artery calcification appreciated. Adrenal glands appear to be normal. Small and large bowel appear to be normal. Bladder is distended and full. Numerous phleboliths appreciated in the pelvis. No free fluid appreciated. Of note there are increased densities noted within the anterior subcutaneous fat most likely representing previous subcutaneous injections. Minimal small fat- containing umbilical hernia appreciated. Mild to moderate degenerative changes throughout the lumbar spine and lower thoracic spine appreciated. 06/22/20 12:47 Lactic acid is 1.8. Serum ketones are 1.70. These are moderately elevated. Will be to speak with the on-call hospitalist with a view to admission to the hospital due to intractable nausea and vomiting. She requires correction of her metabolic acidosis a ketosis with mild lactic acidosis. I suspect the culprit may be her by Bydurion which she started about a month ago for diabetic control. It is well known to cause nausea vomiting and perhaps some mild diarrhea. Also possible course that she contracted a gastroenteritis-like illness or gastritis that produced intractable nausea and vomiting which in turn produced the ketosis and volume depletion. 06/22/20 14:17 Dr. Silver is still in the family meeting and has not yet been able to return my call in regards to Mrs. Joyner 's admission. 06/22/20 15:10: Dr Silver is here and will see the patient in the ED. She has sked me to order serum magnesium and phosphorus level which was done. Departure - Departure Time of Disposition: 15:29 Condition: Fair Sepsis Event Note (ED) - Focused Exam Vital Signs: Vital Signs Temp Pulse Resp BP Pulse Ox 06/22/20 09:38 36.3 C 88 22 H 107/64 92 L - My Orders Last 24 Hours: My Active Orders 06/22/20 09:53 Orthostatic Vital Signs [RC] ASDIRECTED 06/22/20 09:56 EKG Documentation Completion [RC] STAT 06/22/20 10:06 Blood Glucose Check, Bedside [RC] ONETIME 06/22/20 11:17 MAGNESIUM [CHEM] Stat PHOSPHORUS [CHEM] Stat 06/22/20 11:45 Sodium Chloride 0.9% [Normal Saline] 1,000 ml IV ASDIRECTED - Assessment/Plan Last 24 Hours: My Active Orders 06/22/20 09:53 Orthostatic Vital Signs [RC] ASDIRECTED 06/22/20 09:56 EKG Documentation Completion [RC] STAT 06/22/20 10:06 Blood Glucose Check, Bedside [RC] ONETIME 06/22/20 11:17 MAGNESIUM [CHEM] Stat PHOSPHORUS [CHEM] Stat 06/22/20 11:45 Sodium Chloride 0.9% [Normal Saline] 1,000 ml IV ASDIRECTED
[2020-06-22] MEDS ORDERED: Metoclopramide 10 MG/2 ML SDV IVPUSH ONE (09:56)
[2020-06-22] MEDS ORDERED: Sodium Chloride 0.9% 1,000 ML IV SCH ×2 (10:00→11:45)
[2020-06-22] MEDS ORDERED: HYDROmorphone 0.5 MG/0.5 ML Syringe IVPUSH ONE (11:37)
[2020-06-22] MEDS ORDERED: Ondansetron 4 MG/2 ML SDV IVPUSH ONE (11:41)
--- NOTE | 2020-06-22 12:31 | CT ---
CT abdomen and pelvis Technique: Multiple axial sections were obtained from above the dome of the diaphragm inferiorly through the pubic symphysis. Intravenous contrast was not utilized. Comparison: Increased density is noted within both lung bases. Uncertain how much of this is acute or represents small areas of pneumonia. Noncontrast appearance of the liver and spleen shows no focal abnormality. Adrenal glands show no nodule. Nonobstructing calculi are seen within both kidneys. No ureteral dilatation or ureteral stone is seen. Pancreas is normal. Aorta shows no aneurysm. Atherosclerotic calcification are noted within the aorta and iliac vessels. Surgical clips are seen from prior cholecystectomy. No retroperitoneal adenopathy or mesenteric abnormalities are seen. No pelvic mass or adenopathy is appreciated. Areas of increased density noted within the anterior subcutaneous fat most likely relating to previous subcutaneous injections. Bone window settings were reviewed which show slight degenerative change scattered throughout the spine. Small fat-containing umbilical hernia is noted. Impression: 1. Nonacute findings as noted above. Diagnostic code #2 This report was dictated in MDT
--- NOTE | 2020-06-22 13:20 | CR ---
Chest: AP view of the chest was obtained. Comparison: Prior chest x-ray of 03/27/20. Heart size and mediastinum are within normal limits for AP technique. Lungs are clear with no acute parenchymal change. Previous sternotomy is noted. AICD is noted. Impression: 1. Findings as noted above. Nothing acute is suspected. Diagnostic code #2 This report was dictated in MDT
[2020-06-22 14:21] LABS: HEMOGLOBIN A1C 9.5 % (4.50-6.20)
[2020-06-22] MEDS ORDERED: Morphine 2 MG/ML SYRINGE IVPUSH PRN (15:16)
[2020-06-22] MEDS ORDERED: Acetaminophen 325 MG Tab PO PRN (15:16)
[2020-06-22] MEDS ORDERED: Promethazine 12.5 MG in Sodium Chloride 0.9% 50 ML IV PRN (15:16)
--- NOTE | 2020-06-22 15:22 | PCM.HP.2 ---
H&P History of Present Illness - General Date of Service: 06/22/20 Admit Problem/Dx: Admission Diagnosis/Problem Admission Diagnosis/Problem Volume depletion - History of Present Illness Initial Comments - Free Text/Narative: 69-year-old female presents to the ED for evaluation of epigastric pain with associated recurrent nausea and vomiting of bilious material for the last week. Unable to tolerate PO with dizziness and weakness Upper Abdominal Pain Score (Numeric/FACES): 10 - Related Data Allergies/Adverse Reactions: Allergies Allergy/AdvReac Type Severity Reaction Status Date / Time simvastatin [From Zocor] AdvReac Intermediate Muscle Verified 06/22/20 15:34 Aches Home Medications: Home Meds Furosemide 80 mg PO DAILY 09/25/15 [History] Insulin Aspart [NovoLOG] 0 units SUBCUT TID 09/25/15 [History] Insulin Glarg,Human.Rec.Analog [LantUS Solostar] 0 units SUBCUT DAILY 09/25/15 [History] Levothyroxine Sodium 25 mcg PO SUTUTHSA 09/25/15 [History] Lisinopril 20 mg PO DAILY 09/25/15 [History] Rosuvastatin [Crestor] 40 mg PO BEDTIME 09/25/15 [History] allopurinoL [Zyloprim] 300 mg PO DAILY 09/25/15 [History] Levothyroxine 50 mcg PO MOWEFR 01/22/18 [History] Metoprolol Succinate 200 mg PO DAILY 01/22/18 [History] Potassium Chloride [Klor-Con M20] 20 meq PO DAILY 01/22/18 [History] Aspirin [Halfprin] 81 mg PO DAILY 04/26/18 [History] Cholecalciferol (Vitamin D3) [Vitamin D3] 5,000 unit PO DAILY 04/26/18 [History] Diclofenac Sodium [Voltaren] 1 applic TP BID 04/26/18 [History] Exenatide Microspheres [Bydureon] 2 mg SQ MO 04/26/18 [History] Famotidine [Pepcid] 10 mg PO DAILY 04/26/18 [History] Ubidecarenone [Co Q-10] 100 mg PO DAILY 04/26/18 [History] metFORMIN HCl [Glucophage] 850 mg PO BIDMEALS 04/30/18 [History] Rivaroxaban [Xarelto] 10 mg PO DAILY #40 tablet 05/01/18 [Rx] Denosumab [Prolia] 60 mg SQ ASDIRECTED 03/26/20 [History] Fish Oil/[place]-3 Fatty Acids [Fish Oil 1,000 MG] 1,000 mg PO DAILY 03/26/20 [History] Sodium,Potassium Phosphates [Phosphorous Powder Packet] 1 each PO BID #3 powd.pack 03/31/20 [Rx] Past Medical History HEENT History: Reports: None Other HEENT History: wear glasses Cardiovascular History: Reports: CAD, Heart Failure, High Cholesterol, Hypertension, Other (See Below) Other Cardiovascular History: Splenic artery aneurysm Respiratory History: Reports: Asthma Gastrointestinal History: Reports: Colon Polyp Genitourinary History: Reports: Renal Calculus, Other (See Below) Other Genitourinary History: Hypertonicity of bladder [employer] History: Reports: Musculoskeletal History: Reports: Back Pain, Chronic, Gout, Other (See Below) Other Musculoskeletal History: Spinal stenosis of lumbar region, left knee pain Neurological History: Reports: Other (See Below) Other Neuro History: Cerebrovascular disease Psychiatric History: Reports: None Endocrine/Metabolic History: Reports: Diabetes, Type II, Hypothyroidism, Obesity/BMI 30+, Osteopenia Hematologic History: Reports: None Immunologic History: Reports: None Oncologic (Cancer) History: Reports: None Dermatologic History: Reports: None - Infectious Disease History Infectious Disease History: Reports: Measles - Past Surgical History Head Surgeries/Procedures: Reports: None Other HEENT Surgeries/Procedures: Arthroplasty for TMJ Cardiovascular Surgical History: Reports: Coronary Artery Bypass, Other (See Below) Other Cardiovascular Surgeries/Procedures: Cardiac cath Respiratory Surgical History: Reports: None GI Surgical History: Reports: Appendectomy, Cholecystectomy, Colonoscopy, EGD, Polypectomy Female Surgical History: Reports: Hysterectomy, Lithotripsy/ESWL Endocrine Surgical History: Reports: None Musculoskeletal Surgical History: Reports: Other (See Below) Other Musculoskeletal Surgeries/Procedures:: Osteoplasty radius ulna shortening Oncologic Surgical History: Reports: None Dermatological Surgical History: Reports: None Social & Family History - Family History Family Medical History: Noncontributory - Tobacco Use Smoking Status *Q: Former Smoker Used Tobacco, but Quit: Yes Month/Year Tobacco Last Used: 1994 - Caffeine Use Caffeine Use: Reports: Coffee, Soda, Tea - Recreational Drug Use Recreational Drug Use: No H&P Review of Systems - Review of Systems: Review Of Systems: See Below General: Reports: Chills, Weakness. Denies: Fever, Malaise, Fatigue, Night Sweats, Diaphoresis, Decreased Appetite HEENT: Denies: Post Nasal Drip, Sinus Congestion, Sore Throat, Vertigo Pulmonary: Denies: Shortness of Breath, Wheezing, Pleuritic Chest Pain, Cough, Sputum, Hemoptysis Cardiovascular: Reports: Lightheadedness. Denies: Chest Pain, Palpitations, Dyspnea on Exertion, Orthopnea, PND, Edema, Syncope, Claudication Gastrointestinal: Reports: Abdominal Pain, Diarrhea, Nausea, Vomiting. Denies: Anorexia, Constipation, Decreased Appetite, Distension, Flatus, Hematemesis, Hematochezia, Melena, Mucous in Stool Genitourinary: Denies: Dysuria, Frequency, Burning, Pain, Urgency Musculoskeletal: Denies: Joint Pain, Joint Swelling, Muscle Pain, Muscle Stiffness Skin: Denies: Cyanosis, Jaundice, Mottled, Pallor Psychiatric: Denies: Depression, Mood Lability, Anxiety Neurological: Denies: Dizziness, Headache, Numbness Exam - Exam Exam: See Below - Vital Signs Vital Signs: Last Vital Signs Temp 97.3 F 06/22/20 09:38 Pulse 88 06/22/20 09:38 Resp 22 H 06/22/20 09:38 BP 107/64 06/22/20 09:38 Pulse Ox 92 L 06/22/20 09:38 Orthostatic Blood Pressure [ 106/82 Standing] Orthostatic Blood Pressure [ 104/81 Sitting] Orthostatic Blood Pressure [ 108/70 Supine] Weight: 90.718 kg - Exam General: Alert, Oriented, Cooperative, Moderate Distress HEENT: Conjunctiva Clear, EACs Clear. No: Mucosa Moist & [place] Neck: Supple. No: Lymphadenopathy Lungs: Clear to Auscultation, Normal Respiratory Effort. No: Crackles, Rales, Rhonchi, Rub, Stridor, Wheezing Cardiovascular: Regular Rate, Regular Rhythm. No: Systolic Murmur, Diastolic Murmur, Rubs, Gallop/S3, Gallop/S4 GI/Abdominal Exam: Normal Bowel Sounds, Soft, Distended, Guarding, Tender. No: Rigid, Rebound Extremities: Normal Inspection, Non-Tender Peripheral Pulses: 2+: Radial (L), Radial (R) - Patient Data Result Diagrams: 06/22/20 10:20 06/22/20 10:56 Sepsis Event Note - Evaluation Sepsis Screening Result: No Definite Risk - Problem List (1) Abdominal pain SNOMED Code(s): 85763401 ICD Code: R10.9 - UNSPECIFIED ABDOMINAL PAIN Status: Acute Current Visit: No Qualifiers: Abdominal location: epigastric Qualified Code(s): R10.13 - Epigastric pain (2) Acute kidney injury SNOMED Code(s): 92212312, 70832565 ICD Code: N17.9 - ACUTE KIDNEY FAILURE, UNSPECIFIED Status: Acute Current Visit: No (3) AICD (automatic cardioverter/defibrillator) present SNOMED Code(s): 710689158, 440029610 ICD Code: Z95.810 - PRESENCE OF AUTOMATIC (IMPLANTABLE) CARDIAC DEFIBRILLATOR Status: Acute Current Visit: No (4) Asthma SNOMED Code(s): 061503720 ICD Code: J45.909 - UNSPECIFIED ASTHMA, UNCOMPLICATED Status: Acute Priority: Medium Current Visit: No Qualifiers: Asthma severity: unspecified severity Asthma persistence: unspecified Asthma complication type: unspecified Qualified Code(s): J45.909 - Unspecified asthma, uncomplicated (5) CHF (congestive heart failure) SNOMED Code(s): 24679072 ICD Code: I50.9 - HEART FAILURE, UNSPECIFIED Status: Acute Priority: Medium Current Visit: No Qualifiers: Heart failure type: unspecified Heart failure chronicity: chronic Qualified Code(s): I50.9 - Heart failure, unspecified (6) Chronic renal insufficiency, stage III (moderate) SNOMED Code(s): 495776518 ICD Code: N18.3 - CHRONIC KIDNEY DISEASE, STAGE 3 (MODERATE) Status: Acute Current Visit: Yes (7) Coronary artery disease SNOMED Code(s): 64623787 ICD Code: I25.10 - ATHSCL HEART DISEASE OF [place] CORONARY ARTERY W/O ANG PCTRS Status: Acute Priority: Low Current Visit: No Qualifiers: Coronary Disease-Associated Artery/Lesion type: unspecified vessel or lesion type [place] vs. transplanted heart: [place] heart Associated angina: without angina Qualified Code(s): I25.10 - Atherosclerotic heart disease of [place] coronary artery without angina pectoris (8) Dyslipidemia SNOMED Code(s): 992972069 ICD Code: E78.5 - HYPERLIPIDEMIA, UNSPECIFIED Status: Acute Current Visit: No (9) Ex-smoker for more than 1 year SNOMED Code(s): 93359009843672 ICD Code: Z87.891 - PERSONAL HISTORY OF NICOTINE DEPENDENCE Status: Acute Current Visit: No (10) HLD (hyperlipidemia) SNOMED Code(s): 79921346 ICD Code: E78.5 - HYPERLIPIDEMIA, UNSPECIFIED Status: Acute Priority: Medium Current Visit: No Qualifiers: Hyperlipidemia type: unspecified Qualified Code(s): E78.5 - Hyperlipidemia, unspecified (11) Hypertension SNOMED Code(s): 69836013 ICD Code: I10 - ESSENTIAL (PRIMARY) HYPERTENSION Status: Acute Priority: Medium Current Visit: No Qualifiers: Hypertension type: unspecified Qualified Code(s): I10 - Essential (primary) hypertension (12) Hyponatremia SNOMED Code(s): 85638440 ICD Code: E87.1 - HYPO-OSMOLALITY AND HYPONATREMIA Status: Acute Current Visit: Yes (13) Hypothyroidism SNOMED Code(s): 02819102 ICD Code: E03.9 - HYPOTHYROIDISM, UNSPECIFIED Status: Acute Priority: Medium Current Visit: No Qualifiers: Hypothyroidism type: unspecified Qualified Code(s): E03.9 - Hypothyroidism, unspecified (14) Intractable nausea and vomiting SNOMED Code(s): 257935755 ICD Code: R11.2 - NAUSEA WITH VOMITING, UNSPECIFIED Status: Acute Current Visit: Yes (15) S/P CABG (coronary artery bypass graft) SNOMED Code(s): 464193205, 115793389, 138217398 ICD Code: Z95.1 - PRESENCE OF AORTOCORONARY BYPASS GRAFT Status: Acute Current Visit: No (16) Splenic artery aneurysm SNOMED Code(s): 88726384 ICD Code: I72.8 - ANEURYSM OF OTHER SPECIFIED ARTERIES Status: Acute Priority: Low Current Visit: No (17) Status post cholecystectomy SNOMED Code(s): 810775507, 25369501, 431748985 ICD Code: Z90.49 - ACQUIRED ABSENCE OF OTHER SPECIFIED PARTS OF DIGESTIVE TR ACT Status: Acute Current Visit: No (18) Type II diabetes mellitus SNOMED Code(s): 64067367 ICD Code: E11.9 - TYPE 2 DIABETES MELLITUS WITHOUT COMPLICATIONS Status: Acute Priority: Medium Current Visit: No Qualifiers: Diabetes mellitus 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 Diabetes mellitus complication status: with unspecified complications (19) Volume depletion SNOMED Code(s): 443478022 ICD Code: E86.9 - VOLUME DEPLETION, UNSPECIFIED Status: Acute Current Visit: Yes Problem List Initiated/Reviewed/Updated: Yes Assessment/Plan Comment:: ASSESSMENT Severe abdominal pain 10/10 associated with intractable nausea and vomiting as well as diarrhea that started 3 days ago Did not attempt OTC medications at home Came in due to inability to tolerate PO intake as well as complaints of dizziness and weakness Blood work with KAREN (GFR down from 49 to 32) CT abdomen negative for acute findings Ketones elevated on admission, 2/2 no oral intake PLAN Abdominal pain with intractable nausea and vomiting Volume depletion Acute on chronic kidney disease, stage III Hyponatremia [place]emia - IVF repletion with NS - Scheduled Zofran - Clear liquid diet and advance as tolerated - Monitor urine output - Renally dosed medications Type II diabetes mellitus, unknown HbA1c - Scheduled Accu-checks - Hold home medications - Hypoglycemia protocol Hypertension - Hold home BP medications - PRN Hydralazine Ischemic heart failure, s/p AICD placement Dyslipidemia - Hold home medications PROPHYLAXIS DVT- Compression stockings GI- not indicated CODE STATUS: FULL CODE DISPOSITION: Patient will be admitted under observation for IVF repletion and symptom control as well as diet advancement. - Mortality Measure Prognosis:: Good
[2020-06-22] MEDS ORDERED: Ondansetron 4 MG/2 ML SDV IV SCH (15:30)
[2020-06-22] MEDS: Ondansetron 4 MG/2 ML SDV IV SCH (17:12)
[2020-06-22] MEDS: Sodium Chloride 0.9% 1,000 ML IV SCH ×2 (17:13→23:52)
[2020-06-23] MEDS: Sodium Chloride 0.9% 1,000 ML IV SCH ×2 (06:07→13:25)
[2020-06-23] MEDS ORDERED: Levothyroxine 25 MCG Tab PO SCH (07:00)
[2020-06-23] MEDS ORDERED: Enoxaparin 40 MG/0.4 ML Syringe SUBCUT SCH (09:00)
[2020-06-23] MEDS ORDERED: Aspirin 81 MG Tab.EC PO SCH (09:00)
[2020-06-23] MEDS ORDERED: Famotidine 10 MG Tab PO SCH (09:00)
[2020-06-23] MEDS: Ondansetron 4 MG/2 ML SDV IV SCH ×2 (09:29)
[2020-06-23] MEDS ORDERED: Potassium Chloride 20 MEQ Tab.ER PO SCH (10:56)
[2020-06-23 11:14] VITALS: BP 101/47; PULSE 76
--- NOTE | 2020-06-23 14:56 | PCM.DCSUM1 ---
Discharge Summary - Hospital Course HPI Initial Comments: 69-year-old female presents to the ED for evaluation of epigastric pain with associated recurrent nausea and vomiting of bilious material for the last week. Unable to tolerate PO with dizziness and weakness for which she decided to come to the ED for further evaluation. Diagnosis: Stroke: No - Discharge Data Discharge Date: 06/23/20 Discharge Disposition: Home, Self-Care 01 Condition: Good - Referral to Home Health Primary Care Physician: Bernadette Smith MD - Discharge Diagnosis/Problem(s) (1) Abdominal pain SNOMED Code(s): 26168081 ICD Code: R10.9 - UNSPECIFIED ABDOMINAL PAIN Status: Acute Current Visit: No Qualifiers: Abdominal location: epigastric Qualified Code(s): R10.13 - Epigastric pain (2) Acute kidney injury SNOMED Code(s): 52582872, 13958961 ICD Code: N17.9 - ACUTE KIDNEY FAILURE, UNSPECIFIED Status: Acute Current Visit: No (3) AICD (automatic cardioverter/defibrillator) present SNOMED Code(s): 775011546, 695992977 ICD Code: Z95.810 - PRESENCE OF AUTOMATIC (IMPLANTABLE) CARDIAC DEFIBRILLATOR Status: Acute Current Visit: No (4) Asthma SNOMED Code(s): 095742159 ICD Code: J45.909 - UNSPECIFIED ASTHMA, UNCOMPLICATED Status: Acute Priority: Medium Current Visit: No Qualifiers: Asthma severity: unspecified severity Asthma persistence: unspecified Asthma complication type: unspecified Qualified Code(s): J45.909 - Unspecified asthma, uncomplicated (5) CHF (congestive heart failure) SNOMED Code(s): 80133239 ICD Code: I50.9 - HEART FAILURE, UNSPECIFIED Status: Acute Priority: Medium Current Visit: No Qualifiers: Heart failure type: unspecified Heart failure chronicity: chronic Qualified Code(s): I50.9 - Heart failure, unspecified (6) Chronic renal insufficiency, stage III (moderate) SNOMED Code(s): 267418347 ICD Code: N18.3 - CHRONIC KIDNEY DISEASE, STAGE 3 (MODERATE) Status: Acute Current Visit: Yes (7) Coronary artery disease SNOMED Code(s): 34447489 ICD Code: I25.10 - ATHSCL HEART DISEASE OF [place] CORONARY ARTERY W/O ANG P CLINICAL REHAB LIAISON Status: Acute Priority: Low Current Visit: No Qualifiers: Coronary Disease-Associated Artery/Lesion type: unspecified vessel or lesion type [place] vs. transplanted heart: [place] heart Associated angina: without angina Qualified Code(s): I25.10 - Atherosclerotic heart disease of [place] coronary artery without angina pectoris (8) Dyslipidemia SNOMED Code(s): 124746737 ICD Code: E78.5 - HYPERLIPIDEMIA, UNSPECIFIED Status: Acute Current Visit: No (9) Ex-smoker for more than 1 year SNOMED Code(s): 37724751337338 ICD Code: Z87.891 - PERSONAL HISTORY OF NICOTINE DEPENDENCE Status: Acute Current Visit: No (10) HLD (hyperlipidemia) SNOMED Code(s): 64066850 ICD Code: E78.5 - HYPERLIPIDEMIA, UNSPECIFIED Status: Acute Priority: Medium Current Visit: No Qualifiers: Hyperlipidemia type: unspecified Qualified Code(s): E78.5 - Hyperlipidemia, unspecified (11) Hypertension SNOMED Code(s): 72486461 ICD Code: I10 - ESSENTIAL (PRIMARY) HYPERTENSION Status: Acute Priority: Medium Current Visit: No Qualifiers: Hypertension type: unspecified Qualified Code(s): I10 - Essential (primary) hypertension (12) Hyponatremia SNOMED Code(s): 00503999 ICD Code: E87.1 - HYPO-OSMOLALITY AND HYPONATREMIA Status: Acute Current Visit: Yes (13) Hypothyroidism SNOMED Code(s): 60662313 ICD Code: E03.9 - HYPOTHYROIDISM, UNSPECIFIED Status: Acute Priority: Medium Current Visit: No Qualifiers: Hypothyroidism type: unspecified Qualified Code(s): E03.9 - Hypothyroidism, unspecified (14) Intractable nausea and vomiting SNOMED Code(s): 843276773 ICD Code: R11.2 - NAUSEA WITH VOMITING, UNSPECIFIED Status: Acute Current Visit: Yes (15) S/P CABG (coronary artery bypass graft) SNOMED Code(s): 189628617, 092290809, 644457301 ICD Code: Z95.1 - PRESENCE OF AORTOCORONARY BYPASS GRAFT Status: Acute Current Visit: No (16) Splenic artery aneurysm SNOMED Code(s): 95044599 ICD Code: I72.8 - ANEURYSM OF OTHER SPECIFIED ARTERIES Status: Acute Priority: Low Current Visit: No (17) Status post cholecystectomy SNOMED Code(s): 865479998, 65159076, 307581923 ICD Code: Z90.49 - ACQUIRED ABSENCE OF OTHER SPECIFIED PARTS OF DIGESTIVE TRACT Status: Acute Current Visit: No (18) Type II diabetes mellitus SNOMED Code(s): 52290816 ICD Code: E11.9 - TYPE 2 DIABETES MELLITUS WITHOUT COMPLICATIONS Status: Acute Priority: Medium Current Visit: No Qualifiers: Diabetes mellitus jail insulin use: unspecified jail insulin use status Diabetes mellitus complication status: with unspecified complications (19) Volume depletion SNOMED Code(s): 490624574 ICD Code: E86.9 - VOLUME DEPLETION, UNSPECIFIED Status: Acute Current Visit: Yes (20) Polypharmacy SNOMED Code(s): 085849664 ICD Code: Z79.899 - OTHER [facility] (CURRENT) DRUG THERAPY Status: Acute Current Visit: Yes - Patient Summary/Data Hospital Course: ASSESSMENT 06/22/2020 Severe abdominal pain 1010 associated with intractable nausea and vomiting as well as diarrhea that started 3 days ago Did not attempt OTC medications at home Came in due to inability to tolerate PO intake as well as complaints of dizziness and weakness Blood work with KAREN (GFR down from 49 to 32) CT abdomen negative for acute findings Ketones elevated on admission, 2 no oral intake PLAN - IVF repletion with NS - Scheduled Zofran - Clear liquid diet and advance as tolerated - Hold home medications Diet advanced to clears for dinner--> tolerated well 06/23/2020 Slept well Tolerating clear liquid diet Pain controlled, still a little sore un upper larry-abdomen KAREN improving, hyponatremia resolved, mild hyponatremia Replaced KCL with 40mEq PO x 2 doses, pending 2nd one Diet advanced to regular and patient tolerated well No further symptoms Set up to follow up with GI specialist Holding metformin for now - Patient Instructions Diet: Usual Diet as Tolerated Activity: As Tolerated Notify Provider of: Fever, Increased Pain, Swelling and Redness, Drainage, Nausea and/or Vomiting - Discharge Plan *PRESCRIPTION DRUG MONITORING PROGRAM REVIEWED*: No *COPY OF PRESCRIPTION DRUG MONITORING REPORT IN PATIENT MANN: No Prescriptions/Med Rec: Potassium Chloride [Klor-Con M20] 40 meq PO BEDTIME #2 tab.er Home Medications: Home Meds Furosemide 80 mg PO DAILY 09/25/15 [History] Insulin Aspart [NovoLOG] 0 units SUBCUT TID 09/25/15 [History] Insulin Glarg,Human.Rec.Analog [LantUS Solostar] 0 units SUBCUT DAILY 09/25/15 [History] Levothyroxine Sodium 25 mcg PO SUTUTHSA 09/25/15 [History] Lisinopril 20 mg PO DAILY 09/25/15 [History] Rosuvastatin [Crestor] 40 mg PO BEDTIME 09/25/15 [History] allopurinoL [Zyloprim] 300 mg PO DAILY 09/25/15 [History] Levothyroxine 50 mcg PO MOWEFR 01/22/18 [History] Metoprolol Succinate 200 mg PO DAILY 01/22/18 [History] Potassium Chloride [Klor-Con M20] 20 meq PO DAILY 01/22/18 [History] Aspirin [Halfprin] 81 mg PO DAILY 04/26/18 [History] Cholecalciferol (Vitamin D3) [Vitamin D3] 5,000 unit PO DAILY 04/26/18 [History] Exenatide Microspheres [Bydureon] 2 mg SQ MO 04/26/18 [History] Famotidine [Pepcid] 10 mg PO DAILY 04/26/18 [History] Ubidecarenone [Co Q-10] 100 mg PO DAILY 04/26/18 [History] Denosumab [Prolia] 60 mg SQ ASDIRECTED 03/26/20 [History] Fish Oil/[place]-3 Fatty Acids [Fish Oil 1,000 MG] 1,000 mg PO DAILY 03/26/20 [History] Albuterol [Ventolin HFA] 2 puff INH Q4H PRN 06/22/20 [History] Calcium Phos/Vit D3/Mag Oxide [Posture-D Caplet] 1 tab PO DAILY 06/22/20 [History] Cyanocobalamin (Vitamin B-12) [Vitamin B-12] 5,000 mg PO DAILY 06/22/20 [History] Empagliflozin [Jardiance] 10 mg PO DAILY 06/22/20 [History] Ezetimibe 10 mg PO DAILY 06/22/20 [History] Ondansetron [Zofran] 4 mg PO TID PRN 06/22/20 [History] Potassium Chloride [Klor-Con M20] 40 meq PO BEDTIME #2 tab.er 06/23/20 [Rx] Oxygen Therapy Mode: Room Air Patient Handouts: Heart Failure, Self Care, Rehydration, Adult, Nausea and Vomiting, Adult Referrals: Bernadette Smith MD [Primary Care Provider] - 06/30/20 9:00 am (Please follow up with Dr. Smith on June 30 at 9:00.) - Discharge Summary/Plan Comment DC Time >30 min.: No - General Info Date of Service: 06/23/20 Subjective Update: Feels better Slept OK Still a little sore in upper abdomen No more nausea or vomiting Tolerating regular diet - Patient Data Vitals - Most Recent: Last Vital Signs Temp 98.1 F 06/23/20 11:06 Pulse 76 06/23/20 11:06 Resp 24 H 06/23/20 11:06 BP 101/47 L 06/23/20 11:06 Pulse Ox 91 L 06/23/20 11:06 Weight - Most Recent: 88.314 kg - Exam General: Reports: Alert, Oriented, Cooperative, No Acute Distress HEENT: Reports: Pupils Equal, Pupils Reactive, EOMI, Mucous Membr. Moist/[place] Neck: Reports: Supple. Denies: Lymphadenopathy Lungs: Reports: Clear to Auscultation, Normal Respiratory Effort. Denies: Decreased Breath Sounds, Crackles, Rales, Rhonchi, Rub, Stridor, Wheezing Cardiovascular: Reports: Regular Rate, Regular Rhythm. Denies: Murmurs, Gallops, Rubs GI/Abdominal Exam: Normal Bowel Sounds, Soft, Non-Tender (mild soreness in upper hemiabdomen) Back Exam: Reports: Normal Inspection. Denies: CVA Tenderness (L), CVA Tenderness (R) Extremities: Normal Inspection, Normal Range of Motion, Non-Tender, No Pedal Edema, Normal Capillary Refill Skin: Reports: Warm, Dry Neurological: Reports: No New Focal Deficit Psy/Mental Status: Reports: Normal Affect, Normal Mood
[2020-06-24] MEDS ORDERED: Levothyroxine 50 MCG Tab PO SCH (07:00)
== END 2020-06-23 15:30 | disposition home or self-care (01) ==
LOC: JD.ED 09:27 → JD.MS 15:17
PROVIDERS: ADMIT Internal Medicine; ATTEND Internal Medicine
DX: R10.13 Epigastric pain (principal); R19.7 Diarrhea, unspecified; R11.2 Nausea with vomiting, unspecified; J45.909 Unspecified asthma, uncomplicated; E87.1 Hypo-osmolality and hyponatremia; E86.9 Volume depletion, unspecified; E11.10 Type 2 diabetes mellitus with ketoacidosis without coma; E03.9 Hypothyroidism, unspecified; E66.9 Obesity, unspecified; N17.9 Acute kidney failure, unspecified; I25.10 Atherosclerotic heart disease of native coronary artery without angina pectoris; E11.22 Type 2 diabetes mellitus with diabetic chronic kidney disease; I13.0 Hypertensive heart and chronic kidney disease with heart failure and stage 1 through stage 4 chronic kidney disease, or unspecified chronic kidney disease; N18.3 Chronic kidney disease, stage 3 (moderate); I50.9 Heart failure, unspecified; E78.5 Hyperlipidemia, unspecified; I72.8 Aneurysm of other specified arteries; Z90.49 Acquired absence of other specified parts of digestive tract; Z88.8 Allergy status to other drugs, medicaments and biological substances; Z79.4 Long term (current) use of insulin; Z95.810 Presence of automatic (implantable) cardiac defibrillator; Z95.1 Presence of aortocoronary bypass graft; Z87.891 Personal history of nicotine dependence; Z79.899 Other long term (current) drug therapy; Z79.890 Hormone replacement therapy; Z68.39 Body mass index [BMI] 39.0-39.9, adult
CPT/HCPCS: 36415; 71045; 74176; 80048; 80053; 80306; 81003; 82009; 82553; 82962; 82977; 83036; 83605; 83690; 83735; 83880; 84100; 84484; 85025; 85610; 85652; 85730; 93005; 96361; 96372; 96374; 96375; 96376; 99285; A9270; G0378; J1170; J1650; J2405; J2765; J7030; 93010

== ENCOUNTER 2023-03-17 11:33 | Emergency (ER) | payer MEDICARE, OTHER ==
[2023-03-17 12:25] VITALS: PULSE 78
[2023-03-17 14:27] VITALS: BP 115/62
== END 2023-03-17 14:13 | disposition home or self-care (01) ==
LOC: JD.ED 11:33
DX: M79.661 Pain in right lower leg (principal); M79.662 Pain in left lower leg; I11.0 Hypertensive heart disease with heart failure; I50.9 Heart failure, unspecified; E78.00 Pure hypercholesterolemia, unspecified; E11.9 Type 2 diabetes mellitus without complications; E03.9 Hypothyroidism, unspecified; M10.9 Gout, unspecified; E66.9 Obesity, unspecified; Z68.39 Body mass index [BMI] 39.0-39.9, adult; Z88.8 Allergy status to other drugs, medicaments and biological substances; Z79.4 Long term (current) use of insulin; Z79.82 Long term (current) use of aspirin; Z79.899 Other long term (current) drug therapy
CPT/HCPCS: 36415; 80053; 83735; 85025; 85610; 93970; 93970-26; 99284

== ENCOUNTER 2024-10-28 09:48 | Day surgery (SDC) | payer MEDICARE ==
[~2024-10-28 09:48] MED LIST changes: -Bisacodyl 5 MG Tab PO PRN; -Cyclobenzaprine 10 MG Tab PO PRN; -Ketorolac 15 MG/ML SDV IVPUSH PRN; -Lactated Ringers 1,000 ML IV SCH; -Lidocaine 1%/Sod Bicarbonate in NS 8.4% 1 ML Syringe IDERM PRN; -Magnesium Hydroxide 400 MG/5 ML Susp 30 ML Cup PO PRN; -Morphine 2 MG/ML Syringe IVPUSH PRN; -Naloxone 0.4 MG/ML SDV IVPUSH PRN; -Sennosides 8.6 MG Tab PO PRN; +Sodium Chloride 0.9% 10 ML Syringe FLUSH SCH; +oxyCODONE 5 MG Tab PO PRN
[2024-10-28] MEDS: Lactated Ringers 1,000 ML IV SCH (10:00)
[2024-10-28] MEDS ORDERED: EPINEPHrine 1 MG/ML SDV ONE (10:09)
[2024-10-28] MEDS: oxyCODONE ER 10 MG TAB.ER PO ONE (10:24)
[2024-10-28] MEDS: Pregabalin 25 MG Cap PO ONE (10:24)
[2024-10-28] MEDS: Acetaminophen 325 MG Tab PO ONE (10:25)
[2024-10-28] MEDS ORDERED: fentaNYL 100 MCG/2 ML SDV ONE (10:57)
[2024-10-28] MEDS ORDERED: Propofol 200 MG/20 ML SDV ONE ×2 (10:57→11:55)
[2024-10-28] MEDS ORDERED: ceFAZolin 2 GM Vial ONE (10:57)
[2024-10-28] MEDS ORDERED: Ropivacaine 0.5% 5 MG/ML 30 ML SDV ONE (10:58)
[2024-10-28] MEDS ORDERED: Dexamethasone 4 MG/ML 5 ML MDV ONE (10:59)
[2024-10-28] MEDS ORDERED: dexmedeTOMIDine HCl 200 MCG/2 ML SDV ONE (10:59)
[2024-10-28] MEDS ORDERED: ePHEDrine 50 MG/ML SDV ONE (11:28)
[2024-10-28] MEDS: Morphine 8 MG, EPINEPHrine 0.3 MG, Cefuroxime 750 MG, Ketorolac 30 MG, Sodium Chloride ... PRN (12:32)
[2024-10-28] MEDS: Tranexamic Acid 1,000 MG/10 ML Vial ONE (12:33)
[2024-10-28] MEDS: VANCOmycin 1 GM SDV ONE (12:33)
[2024-10-28] MEDS ORDERED: fentaNYL 100 MCG/2 ML SDV IVPUSH PRN (13:36)
[2024-10-28] MEDS ORDERED: HYDROmorphone 0.5 MG/0.5 ML Syringe IVPUSH PRN (13:36)
[2024-10-28] MEDS: Ondansetron 4 MG/2 ML SDV IVPUSH PRN (15:24)
[2024-10-28 16:07] VITALS: BP 133/66; PULSE 97
== END 2024-10-28 16:35 | disposition home or self-care (01) ==
LOC: JD.SDS 09:48
PROVIDERS: ATTEND Orthopaedic Surgery
DX: M17.11 Unilateral primary osteoarthritis, right knee (principal); E66.01 Morbid (severe) obesity due to excess calories; I11.0 Hypertensive heart disease with heart failure; I50.9 Heart failure, unspecified; E11.9 Type 2 diabetes mellitus without complications; E78.2 Mixed hyperlipidemia; I25.10 Atherosclerotic heart disease of native coronary artery without angina pectoris; E03.9 Hypothyroidism, unspecified; Z79.899 Other long term (current) drug therapy; Z79.01 Long term (current) use of anticoagulants; Z79.890 Hormone replacement therapy; Z79.4 Long term (current) use of insulin; Z79.82 Long term (current) use of aspirin; Z87.891 Personal history of nicotine dependence; Z88.8 Allergy status to other drugs, medicaments and biological substances
CPT/HCPCS: 0055T; 27447; 64447; 73560; 97116; 97161; A9270; C1713; C1776; J0171; J0690; J0697; J1100; J1885; J2272; J2405; J2704; J2795; J3010; J7120; J3490

== ENCOUNTER 2025-02-15 12:21 | Emergency (ER) | payer MEDICARE, OTHER ==
[2025-02-15 12:39] VITALS: BP 103/62; PULSE 78
[2025-02-15] MEDS: Sodium Chloride 0.9% 10 ML Syringe FLUSH PRN (12:51)
[2025-02-15 12:58] LABS: BASOPHILS PERCENT AUTO 0.2 % (0.0-1.0); EOSINOPHILS ABSOLUTE AUTO 0.1 K/mm3 (0.0-0.4); EOSINOPHILS PERCENT AUTO 1.9 % (0.0-6.0); HEMATOCRIT 42.1 % (37.0-47.0); HEMOGLOBIN 13.7 gm/dl (12.0-16.0); IMMATURE GRAN ABSOLUTE AUTO 0.01 K/mm3 (0.00-0.05); IMMATURE GRAN PERCENT AUTO 0.2 % (0.0-0.4); LYMPHOCYTES ABSOLUTE AUTO 1.2 K/mm3 (1.0-4.8); LYMPHOCYTES PERCENT AUTO 26.3 % (24.0-44.0); MEAN CORPUSCULAR HEMOGLOBIN 28.2 pg (28.0-32.0); MEAN CORPUSCULAR HGB CONC 32.5 g/dl (32.0-36.0); MEAN CORPUSCULAR VOLUME 86.8 fl (83.0-99.0); MONOCYTES ABSOLUTE AUTO 0.6 K/mm3 (0.0-0.8); MONOCYTES PERCENT AUTO 12.1 % (0.0-8.0); NEUTROPHILS ABSOLUTE AUTO 2.8 K/mm3 (1.8-7.7); NEUTROPHILS PERCENT AUTO 59.3 % (41.0-71.0); PLATELET COUNT,PLT 157 K/mm3 (150-400); RED BLOOD CELL COUNT 4.85 M/mm3 (4.10-5.30); WHITE BLOOD CELL COUNT,WBC 4.72 K/mm3 (3.9-11.3)
[2025-02-15] MEDS: Albuterol/Ipratropium 3.0-0.5 MG/3 ML Neb Soln NEB ONE (13:02)
[2025-02-15 13:31] LABS: A/G RATIO 0.8 (1-2); ALANINE AMINOTRANSFERASE,ALT 27 U/L (14-59); ALBUMIN 3.1 g/dl (3.4-5.0); ALKALINE PHOSPHATASE 78 U/L (46-116); ANION GAP 13.2 (5-15); ASPARTATE AMNIOTRANSFERASE,AST 33 U/L (15-37); BILIRUBIN TOTAL 0.8 mg/dL (0.2-1.0); BLOOD UREA NITROGEN,BUN 12 mg/dL (7-18); CALCIUM 9.1 mg/dL (8.5-10.1); CARBON DIOXIDE,CO2 24 mEq/L (21-32); CHLORIDE,CL 102 mEq/L (98-107); EST CRCL DRUG DOSING (CG) 34.38 mL/min; ESTIMATED GFR 58 mL/min (>60); GLUCOSE RANDOM 175 mg/dL (70-99); MAGNESIUM 1.7 mg/dL (1.8-2.4); POTASSIUM,K 4.2 mEq/L (3.5-5.1); SODIUM,NA 135 mEq/L (136-145); TROPONIN I HIGH SENSITIVITY 30 pg/mL (<=51)
[2025-02-15 13:32] LABS: C-REACTIVE PROTEIN < 0.05 mg/dL (<0.30)
[2025-02-15 13:35] LABS: LACTIC ACID 2.6 mmol/L (0.4-2.0)
[2025-02-15] MEDS: predniSONE 20 MG Tab PO ONE (14:26)
[2025-02-15] MEDS: Albuterol 0.083% 2.5 MG/3 ML Neb Soln NEB ONE ×2 (14:30→16:39)
[2025-02-15] MEDS: Sodium Chloride 0.9% 1,000 ML IV SCH (17:19)
[2025-02-15 18:03] LABS: CORONAVIRUS COVID-19 NAA NEGATIVE (NEGATIVE); INFLUENZA A NAA NEGATIVE (NEGATIVE); RESPIRATORY SYNCYTIAL VIR NAA NEGATIVE (NEGATIVE)
[2025-02-15 18:34] LABS: APPEARANCE,URINE CLEAR (Clear); BILIRUBIN,URINE NEGATIVE (Negative); COLOR,URINE YELLOW (Yellow); GLUCOSE,URINE NEGATIVE (Negative); KETONES,URINE NEGATIVE (Negative); LEUKOCYTE ESTERASE,URINE NEGATIVE (Negative); NITRITE,URINE NEGATIVE (Negative); OCCULT BLOOD,URINE NEGATIVE (Negative); PROTEIN,URINE TRACE (Negative); UROBILINOGEN,URINE 0.2 (0.2-1.0)
[2025-02-15 18:48] LABS: BACTERIA,URINE FEW /hpf (FEW); MUCUS,URINE FEW /hpf (FEW); RBC,URINE 0-5 /hpf (0-5); WBC,URINE 0-5 /hpf (0-5)
== END 2025-02-15 19:30 | disposition home or self-care (01) ==
LOC: JD.ED 12:21
DX: J40 Bronchitis, not specified as acute or chronic (principal); I11.0 Hypertensive heart disease with heart failure; I50.9 Heart failure, unspecified; E66.9 Obesity, unspecified; E11.9 Type 2 diabetes mellitus without complications; E03.9 Hypothyroidism, unspecified; Z88.8 Allergy status to other drugs, medicaments and biological substances; Z79.82 Long term (current) use of aspirin; Z79.4 Long term (current) use of insulin; Z79.890 Hormone replacement therapy; Z79.899 Other long term (current) drug therapy; Z90.49 Acquired absence of other specified parts of digestive tract; Z90.710 Acquired absence of both cervix and uterus; Z68.36 Body mass index [BMI] 36.0-36.9, adult
CPT/HCPCS: 0241U; 36415; 71045; 80053; 81001; 83605; 83735; 84484; 85025; 86140; 87428; 93005; 94640; 99285; A9270; J7030; J7512; 99284